=== PATIENT | male | born 1945 | race Caucasian/White ===

== ENCOUNTER 2020-02-13 14:26 | Inpatient (IN) ==
[2020-02-13] MEDS ORDERED: SODIUM CHLORIDE 0.9% 1000ML 1,000 ML IV ONE (14:45)
--- NOTE | 2020-02-13 14:52 | Emergency Department Note ---
Impression & Plan Hematuria, gross, Acute urinary retention, Anemia, Enlarged prostate, Abnormal abdominal CT scan ED Provider Note NAME: ALPA NGUYEN AGE: 74 SEX: M : 1945 ARRIVES VIA: Walk-In INFORMANT: [Patient][family] ED PROVIDER(S): [Victorino García MD] CHIEF COMPLAINT: Hematuria HISTORY OF PRESENT ILLNESS: The patient is a 74-year-old male who states that yesterday evening around 5 PM, he stopped being able to urinate. Patient states that he then felt the need to urinate in the cash teller this a.m. and could not. He went to an outside hospital, [facility]. The patient had a Jones catheter placed. The patient then had to go back to the same hospital a short time later as the catheter was full of blood. He was given a new Jones bag. Patient then went back a third time as again, the catheter was full of blood. He waited in the waiting room for 45 minutes and then left. He presents now to our ED. The patient has a known high prostate specific antigen. The value has been in the 40s. He is on Flomax and aspirin. The aspirin is preventative, he does not have any cardiac stents. The patient does not take any high end blood thinners. He has not suffered bladder trauma. He has no pain at the present. No flank pain in particular. There has been no documented fever but he felt he might of had a chill. No cough or congestion or chest pain. No known coronavirus exposures. The patient has been in this area from [place] for about 2 months. REVIEW OF SYSTEMS: See HPI for pertinent positives and negatives. A total of ten systems were reviewed and were otherwise negative. PMHx/PSHx: See Below SOCIAL HISTORY: See Below. PHYSICAL EXAM: GENERAL: Patient is in no acute distress. HEENT: No acute trauma, normocephalic atraumatic, mucous membranes moist, no nasal congestion, no scleral icterus. NECK: No stridor, no adenopathy, no meningismus, trachea is midline. LUNGS: Clear to auscultation bilaterally, no wheeze, no rhonchi, breath sounds equal. HEART: Without murmurs gallops or rubs, regular rate and rhythm. ABDOMEN: Soft, there is some distention in the area of the bladder, nontender abdomen, bowel sounds positive, no hernias, no peritonitis. EXTREMITIES: No cyanosis or edema, full range of motion of all the joints without pain or difficulty, no signs for acute trauma. NEUROLOGIC: Oriented x 3, no acute motor or sensory deficits, no focal weakness. SKIN: No rash, no jaundice, no diaphoresis. Groin: He is circumcised. There is a Jones catheter in place. The urine is tea colored and the Jones bag is quite full. DIFFERENTIAL DIAGNOSIS: Hematuria, bladder malignancy, prostate or renal malignancy, coagulopathy, anemia, UTI, renal stone, urethral trauma/tear, renal failure. EMERGENCY DEPARTMENT COURSE/PROCEDURES: MEDICAL DECISION MAKING: There is no leukocytosis. A mild anemia was noted. There was a normal platelet count. No coagulopathy. Potassium is slightly low but not critical, no kidney failure. No concerning liver enzyme elevation. Prostate specific antigen was quite high at 75. Urinalysis showed gross hematuria, no evidence for infection. Abdominal and pelvis CT showed a very large prostate. The bladder was irregular. There were abnormalities in the pelvis concerning for potential malignancy. There was no ureteral obstruction notified. The patient had his Jones catheter removed. A new Jones was placed. The bladder was irrigated. Despite the irrigation, the bleeding continued. This is the patient's fourth visit to a hospital in just 12 hours. He requires hospitalization and observation. He may require urologic intervention if his bleeding continues. I did consult urology. Urology recommended a hospital stay and a medical work-up. I spoke to the patient, I talked with case management. The on-call hospitalist was consulted. The patient was told to hold his aspirin for now. Past Med/Surg History Medical History BPH (benign prostatic hyperplasia) Elevated PSA Hx of colonic polyp Kidney stone Surgical History H/O lithotripsy H/O prostate biopsy Family History Father , age 67 Prostate cancer Lung cancer Colorectal cancer Brother Prostate cancer Social History Smoking Status: Former smoker Hx Alcohol Use: Yes Alcohol type: beer, wine and hard liquor Alcohol Intake Frequency: 2-4 x/Month Hx Substance Use: No Preferred Language: Mohawk Communication Ability: Effective Boom Stick Man Required: No Beliefs That Will Affect Care: None marital status: marital status details: 2nd marriage Current Living Situation: Spouse Current Living Situation Comment: lives in [place]; just recently moved from [place] current occupational status: retired 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 How many Children do You have: 5 How many Children do You have Comment: 1 biological child with current ; 1 biological child with first ; 3 step-children Feels Safe at Home: Yes Assistive Devices: Glasses Allergies Allergies Allergy/AdvReac Type Severity Reaction Status Date / Time No Known Allergies Allergy Unverified 02/13/20 17:46 Home Meds Home Medications Medication Instructions Recorded Confirmed finasteride 5 mg PO DAILY 02/13/20 02/13/20 multivitamin [Multiple Vitamin] 1 tab PO DAILY 02/13/20 02/13/20 omega-3 fatty acids [[place] 3] 1,000 mg PO DAILY 02/13/20 02/13/20 paroxetine HCl 20 mg PO DAILY 02/13/20 02/13/20 tamsulosin 0.4 mg PO DAILY 02/13/20 02/13/20 Results & Data (ED) Vital Signs Vital Signs - 24 hr 02/13/20 14:28 02/13/20 16:05 02/13/20 16:10 Temperature 37.4 C Temperature Source Oral Pulse Rate 92 H Pulse Rate [Finger] 69 Respiratory Rate 20 20 Respiratory Effort / Characteristics Non-Labored Non-Labored Spontaneous Respiratory Depth Normal Normal Respiratory Pattern Regular Regular Blood Pressure 148/75 H Blood Pressure [Right Arm] 146/78 H Blood Pressure Mean 99 Blood Pressure Mean [Right Arm] 100 Pulse Oximetry 97 94 Oxygen Delivery Method Room Air Room Air Room Air Sepsis Recent Fever Within 48 Hours No Sepsis New/Unexplained Change in Mental Status N/A Sepsis Action Taken by Nursing No Action Required 02/13/20 17:11 02/13/20 19:00 Temperature Temperature Source Pulse Rate Pulse Rate [Finger] 67 77 Respiratory Rate 18 20 Respiratory Effort / Characteristics Non-Labored Spontaneous Non-Labored Spontaneous Respiratory Depth Normal Normal Respiratory Pattern Blood Pressure Blood Pressure [Right Arm] 141/68 H 148/77 H Blood Pressure Mean Blood Pressure Mean [Right Arm] 92 100 Pulse Oximetry 96 95 Oxygen Delivery Method Room Air Room Air Sepsis Recent Fever Within 48 Hours Sepsis New/Unexplained Change in Mental Status Sepsis Action Taken by [facility] Medications Current Medication List: was personally reviewed by me Laboratory Data Attestation: I reviewed the patient's lab results. Result diagrams: 02/14/20 05:34 02/14/20 05:34 Lab Results 02/13/20 02/13/20 02/13/20 Range/Units 15:40 15:40 15:40 WBC 8.59 (4.8-10.8) K/uL RBC 4.26 L (4.7-6.1) M/uL Hgb 12.9 L (14.0-18.0) g/dL Hct 38.8 L (42-52) % MCV 91.1 (80-100) fL MCH 30.3 (25-34) pg MCHC 33.2 (32-36) g/dL RDW Std Deviation 44.6 (36.4-46.3) fL RDW Coeff of Robert 13.5 (11.5-14.5) % Plt Count 171 (130-400) K/uL MPV 11.0 H (7.4-10.4) fL Immature Gran % (Auto) 0.2 % Neut % (Auto) 82.3 % Lymph % (Auto) 12.5 % [place] % (Auto) 4.7 % Eos % (Auto) 0.2 % Baso % (Auto) 0.1 % Neut # (Auto) 7.07 H (1.4-6.5) K/uL Lymph # (Auto) 1.07 L (1.2-3.4) K/uL [place] # (Auto) 0.40 (0.11-0.59) K/uL Eos # (Auto) 0.02 (0-0.5) K/uL Baso # (Auto) 0.01 (0-0.2) K/uL Immature Gran # (Auto) 0.02 (0.00-0.02) K/uL PT 10.2 (9.0-12.0) Seconds INR 1.0 (0.9-1.1) APTT 27.6 (21.0-31.0) Seconds PTT Ratio 1.0 Sodium 140 (136-145) mmol/L Potassium 3.3 L (3.5-5.1) mmol/L Chloride 107 (98-107) mmol/L Carbon Dioxide 28 (21-32) mmol/L Anion Gap 5.0 (3-11) BUN 10 (7-18) mg/dl Creatinine 0.70 (0.6-1.4) mg/dl Est Cr Clr Drug Dosing 86.1 ml/min Est GFR ( Amer) 109.3 Est GFR (Non-Af Amer) 94.3 BUN/Creatinine Ratio 13.8 (10-20) Glucose 203 H (70-99) mg/dl Calcium 8.4 L (8.5-10.1) mg/dl Total Bilirubin 0.3 (0.2-1) mg/dl AST 17 (15-37) U/L ALT 22 (12-78) U/L Alkaline Phosphatase 95 (45-117) U/L Total Protein 6.8 (6.4-8.2) gm/dl Albumin 3.4 (3.4-5.0) gm/dl Globulin 3.4 (2.5-4.0) gm/dl Albumin/Globulin Ratio 1.0 (0.9-2) Prostate Specific Ag 75.900 H (0-4) ng/ml Urine Color Urine Appearance (Clear) Urine pH (4.5-7.5) Ur Specific [place] (1.000-1.030) Urine Protein (Negative) Urine Glucose (UA) (Negative) Urine Ketones (Negative) Urine Blood (Negative) Urine Nitrite (Negative) Urine Bilirubin (Negative) Urine Urobilinogen (Negative) Ur Leukocyte Esterase (Negative) Urine RBC (0-4) /hpf Urine WBC (0-5) /hpf Ur Epithelial Cells (0-5) /lpf Urine Bacteria (Negative) 02/13/20 Range/Units 16:00 WBC (4.8-10.8) K/uL RBC (4.7-6.1) M/uL Hgb (14.0-18.0) g/dL Hct (42-52) % MCV (80-100) fL MCH (25-34) pg MCHC (32-36) g/dL RDW Std Deviation (36.4-46.3) fL RDW Coeff of Robert (11.5-14.5) % Plt Count (130-400) K/uL MPV (7.4-10.4) fL Immature Gran % (Auto) % Neut % (Auto) % Lymph % (Auto) % [place] % (Auto) % Eos % (Auto) % Baso % (Auto) % Neut # (Auto) (1.4-6.5) K/uL Lymph # (Auto) (1.2-3.4) K/uL [place] # (Auto) (0.11-0.59) K/uL Eos # (Auto) (0-0.5) K/uL Baso # (Auto) (0-0.2) K/uL Immature Gran # (Auto) (0.00-0.02) K/uL PT (9.0-12.0) Seconds INR (0.9-1.1) APTT (21.0-31.0) Seconds PTT Ratio Sodium (136-145) mmol/L Potassium (3.5-5.1) mmol/L Chloride (98-107) mmol/L Carbon Dioxide (21-32) mmol/L Anion Gap (3-11) BUN (7-18) mg/dl Creatinine (0.6-1.4) mg/dl Est Cr Clr Drug Dosing ml/min Est GFR ( Amer) Est GFR (Non-Af Amer) BUN/Creatinine Ratio (10-20) Glucose (70-99) mg/dl Calcium (8.5-10.1) mg/dl Total Bilirubin (0.2-1) mg/dl AST (15-37) U/L ALT (12-78) U/L Alkaline Phosphatase (45-117) U/L Total Protein (6.4-8.2) gm/dl Albumin (3.4-5.0) gm/dl Globulin (2.5-4.0) gm/dl Albumin/Globulin Ratio (0.9-2) Prostate Specific Ag (0-4) ng/ml Urine Color Yellow Urine Appearance Slightly Cloudy (Clear) Urine pH 6.0 (4.5-7.5) Ur Specific [place] 1.025 (1.000-1.030) Urine Protein 3+ H (Negative) Urine Glucose (UA) Trace H (Negative) Urine Ketones Trace H (Negative) Urine Blood 3+ H (Negative) Urine Nitrite Negative (Negative) Urine Bilirubin Negative (Negative) Urine Urobilinogen Negative (Negative) Ur Leukocyte Esterase Negative (Negative) Urine RBC >30 H (0-4) /hpf Urine WBC 10-30 H (0-5) /hpf Ur Epithelial Cells 10-20 H (0-5) /lpf Urine Bacteria 1+ H (Negative) Administered Medications Finasteride (Finasteride 5 Mg Tab) 5 mg PO DAILY WISAM Stop: 03/15/20 08:59 Last Admin: 02/14/20 09:43 Dose: 5 mg Documented by: [id number] Ceftriaxone Sodium 2,000 mg/ (Dextrose) 70 mls @ 100 mls/hr IV DAILY WISAM; Protocol Stop: 02/24/20 17:59 Last Infusion: 02/14/20 21:22 Dose: 0 mls/hr Documented by: [id number] Admin: 02/14/20 19:55 Dose: 100 mls/hr Documented by: [id number] Multivitamins (Multivitamin Tab) 1 tab PO DAILY WISAM Stop: 03/15/20 08:59 Last Admin: 02/14/20 09:43 Dose: 1 tab Documented by: [id number] Paroxetine HCl (Paroxetine Hcl 20 Mg Tab) 20 mg PO DAILY WISAM Stop: 03/15/20 08:59 Last Admin: 02/14/20 09:43 Dose: 20 mg Documented by: [id number] Tamsulosin HCl (Tamsulosin Hcl 0.4 Mg Cap) 0.4 mg PO DAILY WISAM Stop: 03/15/20 08:59 Last Admin: 02/14/20 09:43 Dose: 0.4 mg Documented by: [id number] Discontinued Medications Sodium Chloride (Nss 1000ml) 1,000 mls @ 999 mls/hr IV .Q1H1M ONE Stop: 02/13/20 15:45 Last Infusion: 02/13/20 17:14 Dose: 0 mls/hr Documented by: [id number] Admin: 02/13/20 16:06 Dose: 999 mls/hr Documented by: [id number] Ceftriaxone Sodium (Rocephin) 2,000 mg in 70 mls @ 140 mls/hr IV NOW STA Stop: 02/13/20 20:07 Last Infusion: 02/13/20 22:15 Dose: 0 mls/hr Documented by: [id number] Admin: 02/13/20 20:36 Dose: 140 mls/hr Documented by: [id number] Potassium Chloride/Sodium Chloride (Normal Saline W/20 Meq Kcl) 20 meq in 1,000 mls @ 100 mls/hr IV .Q10H WISAM Stop: 03/14/20 21:29 Last Infusion: 02/14/20 13:44 Dose: 0 mls/hr Documented by: [id number] Admin: 02/14/20 07:26 Dose: 100 mls/hr Documented by: [id number] Infusion: 02/14/20 07:26 Dose: 100 mls/hr Documented by: [id number] Admin: 02/13/20 22:19 Dose: 100 mls/hr Documented by: [id number] Ioversol (Ioversol 100ml) 93 ml IV ONCE ONE Stop: 02/13/20 17:28 Last Admin: 02/13/20 17:28 Dose: 93 ml Documented by: [id number] Imaging Data Radiologist's Impression: ABDOMEN AND PELVIS CT WITH IV CONTRAST CT DOSE: 285.26 mGy.cm HISTORY: Acute hematuria poss mass, hematuria TECHNIQUE: Multiaxial CT images of the abdomen and pelvis were performed following the IV administration of 93 cc of Optiray 320, A dose lowering technique was utilized adhering to the principles of ALARA. COMPARISON STUDY: None. FINDINGS: Lung bases are generally clear. No pneumatosis or pneumoperitoneum. Mild cardiomegaly. The spleen and adrenal glands are unremarkable. There are a few scattered calcifications noted within the distal pancreatic body and tail which may reflect sequela of chronic pancreatitis. The gallbladder is either contracted or surgically absent. Calcifications measuring up to 11 mm are noted within the bayron hepatis, possibly within the cystic duct. No biliary ductal dilation. Patency of the hepatic and portal veins. Unremarkable liver. 3 mm nonobstructing calculus of the superior pole left kidney. Bilateral renal cysts measure up to 5 cm on the left. There is equivocal urothelial thickening of the right renal pelvis and proximal right ureter. Mild dilation of the mid and distal ureters without hydronephrosis. Marked irregular urinary bladder wall thickening and trabeculation. Nondependent air within the urinary bladder is also noted. Jones catheter appears appropriately positioned. Marked prostamegaly measures up to 9.6 cm transversely. Perivesicular stranding. Mild to moderate mixed plaque the abdominal aorta without aneurysm. There are several pathologic pelvic lymph nodes, largest of which is along the inferior lateral aspect of the right urinary bladder within the region of the proximal right inguinal canal measuring 2.2 x 1.6 cm. Pathologic perirectal and presacral lymph nodes measure up to 12 mm in short axis. There is no bowel obstruction. Colonic diverticulosis. Visualized urinary bladder is unremarkable. Soft tissues are within normal limits. There are no definite suspicious lytic or blastic osseous lesions identified. No acute fracture. IMPRESSION: 1. There is irregular urinary bladder wall thickening and trabeculation with marked prostamegaly. Perivesicular stranding with trace pelvic free fluid. Urinary bladder wall thickening may be secondary to chronic bladder outlet obstruction however could be correlated with cystoscopy to exclude malignancy. 2. Numerous pathologic pelvic lymph nodes seen within the perirectal and perivesicular distributions are suggestive of malignancy from unknown primary. Oncologic workup is needed. 3. Mild dilation of the bilateral ureters without hydronephrosis. Additionally, there is question urothelial thickening on the right. Correlate with urinalysis. 4. No bowel obstruction or bowel wall thickening. 5. Colonic diverticulosis. 6. No evidence of osseous metastatic disease. 7. Nonobstructing left nephrolithiasis. 8. Additional findings as above. Blood Pressure Blood Pressure Findings: Elevated blood pressure Blood Pressure Disposition: further management by hospitalist Discharge Plan Visit Data Chief Complaint: Bleeding Stated Complaint: BLEEDING ALOT IN CATHETER ED Provider: Victorino García Discharge Problem: Hematuria, gross, Acute urinary retention, Anemia, Enlarged prostate, Abnormal abdominal CT scan Patient Disposition: Admitted As Inpatient Condition: Good Discharge Instructions Interventions: ED Discharge Assessment Last Done: 02/13/20 20:58 Discharge Problem: Anemia Qualifiers: Anemia type: unspecified type Qualified Code(s): D64.9 - Anemia, unspecified
[2020-02-13 15:57] LABS: Basophils # (auto) 0.01 K/uL (0-0.2); Basophils % (auto) 0.1 %; Eosinophils # (auto) 0.02 K/uL (0-0.5); Eosinophils % (auto) 0.2 %; Hematocrit (blood only) 38.8 % (42-52); Hemoglobin 12.9 g/dL (14.0-18.0); Immature Granulocytes # (auto) 0.02 K/uL (0.00-0.02); Immature Granulocytes % (auto) 0.2 %; Lymphocytes # (auto) 1.07 K/uL (1.2-3.4); Lymphocytes % (auto) 12.5 %; Mean Corpuscular Hemoglobin 30.3 pg (25-34); Mean Corpuscular Hgb Conc 33.2 g/dL (32-36); Mean Corpuscular Volume 91.1 fL (80-100); Monocytes % (auto) 4.7 %; Neutrophils # (auto) 7.07 K/uL (1.4-6.5); Neutrophils % (auto) 82.3 %; Platelet Count 171 K/uL (130-400); RDW Coefficient of Variation 13.5 % (11.5-14.5); RDW Standard Deviation 44.6 fL (36.4-46.3); Red Blood Count 4.26 M/uL (4.7-6.1); White Blood Count 8.59 K/uL (4.8-10.8)
[2020-02-13 16:18] LABS: Partial Thromboplastin Time 27.6 Seconds (21.0-31.0); Prothrombin Time 10.2 Seconds (9.0-12.0)
[2020-02-13 16:26] LABS: Appearance Urine Slightly Cloudy (Clear); Bilirubin Urine Negative (Negative); Blood Urine 3+ (Negative); Glucose Urine UA Trace (Negative); Ketones Urine Trace (Negative); Leukocyte Esterase Urine Negative (Negative); Nitrite Urine Negative (Negative); Protein Urine 3+ (Negative); Specific Gravity Urine 1.025 (1.000-1.030); Urobilinogen Urine Negative (Negative)
[2020-02-13 16:27] LABS: Color Urine Yellow
[2020-02-13 16:28] LABS: Albumin Level 3.4 gm/dl (3.4-5.0); BUN Creatinine Ratio 13.8 (10-20); Calcium 8.4 mg/dl (8.5-10.1); Creatinine Clr Calc Pharmacy 86.1 ml/min; Est GFR (African American) 109.3; Est GFR (Non-African American) 94.3; Potassium 3.3 mmol/L (3.5-5.1)
[2020-02-13 16:30] LABS: Bacteria Urine 1+ (Negative); RBC Urine >30 /hpf (0-4)
[2020-02-13 16:31] LABS: Bilirubin,Total 0.3 mg/dl (0.2-1); Globulin 3.4 gm/dl (2.5-4.0); Total Protein 6.8 gm/dl (6.4-8.2)
[2020-02-13] MEDS ORDERED: IOVERSOL 100ml IV ONE (17:27)
--- NOTE | 2020-02-13 18:02 | CT Scan Report ---
ABDOMEN AND PELVIS CT WITH IV CONTRAST CT DOSE: 285.26 mGy.cm HISTORY: Acute hematuria poss mass, hematuria TECHNIQUE: Multiaxial CT images of the abdomen and pelvis were performed following the IV administrat ion of 93 cc of Optiray 320, A dose lowering technique was utilized adhering to the principles of AL DAMIAN. COMPARISON STUDY: None. FINDINGS: Lung bases are generally clear. No pneumatosis or pneumoperitoneum. Mild cardiomegaly. The spleen and adrenal glands are unremarkable. There are a few scattered calcifications noted within the distal pancreatic body and tail which may reflect sequela of chronic pancreatitis. The gallbladder i s either contracted or surgically absent. Calcifications measuring up to 11 mm are noted within the p ru hepatis, possibly within the cystic duct. No biliary ductal dilation. Patency of the hepatic and portal veins. Unremarkable liver. 3 mm nonobstructing calculus of the superior pole left kidney. Bilateral renal cysts measure up to 5 cm on the left. There is equivocal urothelial thickening of the right renal pelvis and proximal right ureter. Mild dilation of the mid and distal ureters without hydronephrosis. Marked irregular urinary bladder wall thickening and trabeculation. Nondependent air within the urinary bladder is also noted . Jones catheter appears appropriately positioned. Marked prostamegaly measures up to 9.6 cm transver sely. Perivesicular stranding. Mild to moderate mixed plaque the abdominal aorta without aneurysm. There are several pathologic pelv ic lymph nodes, largest of which is along the inferior lateral aspect of the right urinary bladder wi thin the region of the proximal right inguinal canal measuring 2.2 x 1.6 cm. Pathologic perirectal an d presacral lymph nodes measure up to 12 mm in short axis. There is no bowel obstruction. Colonic diverticulosis. Visualized urinary bladder is unremarkable. So ft tissues are within normal limits. There are no definite suspicious lytic or blastic osseous lesion s identified. No acute fracture. IMPRESSION: 1. There is irregular urinary bladder wall thickening and trabeculation with marked prostamegaly. Per ivesicular stranding with trace pelvic free fluid. Urinary bladder wall thickening may be secondary t o chronic bladder outlet obstruction however could be correlated with cystoscopy to exclude malignanc y. 2. Numerous pathologic pelvic lymph nodes seen within the perirectal and perivesicular distributions are suggestive of malignancy from unknown primary. Oncologic workup is needed. 3. Mild dilation of the bilateral ureters without hydronephrosis. Additionally, there is question uro thelial thickening on the right. Correlate with urinalysis. 4. No bowel obstruction or bowel wall thickening. 5. Colonic diverticulosis. 6. No evidence of osseous metastatic disease. 7. Nonobstructing left nephrolithiasis. 8. Additional findings as above. ACT 112: Negative or not required by law. The above report was generated using voice recognition software. It may contain grammatical, syntax o r spelling errors. Electronically signed by: Chase Gonzalez M.D. 02/13/2020 6:01 PM
[2020-02-13 19:14] LABS: Prostate Specific Antigen 75.9 ng/ml (0-4)
[2020-02-13] MEDS ORDERED: cefTRIAXone SODIUM 2,000 MG/70 ML BAG IV STA (19:38)
--- NOTE | 2020-02-13 19:42 | Urology Consultation ---
Date of Consultation February 13, 2020 Assessment & Plan (1) Hematuria, gross: (2) Acute urinary retention: Patient initially presented in outlying facility with large volume retention. Had a catheter placed and subsequently developed gross hematuria with clot retention and multiple issues. Is currently resting more comfortably. Is on tamsulosin in the past. Has a PSA which was checked today found to be 75. Was in the 40 range in the past per patient. We will need to get full records of patient's urologic history. Patient has concerning findings on imaging including pathologically enlarged lymph nodes with considerable thickening of bladder and severe bilateral hydronephrosis. Majority of issues may be related to large volume retention however concern for possible malignancy causing obstruction versus other issues. According to records patient is on finasteride and PSA will be corrected to over 150 Will need decompression with Jones catheter for approximately 10 to 14 days. Will likely need repeat biopsy of prostate if unable to confirm prostate cancer on previous biopsy. Will also need to have scope to rule out mass of bladder/bladder cancer. Would need to consider TURP at some point to assess tissue and obstruction. Will likely need to consider intervention at this point. May need biopsies of lymph nodes depending on results. May need further work- up to better assess and consider other malignant work-up. Continue plans with supportive care with hydration and monitoring. Irrigate as needed gently. We will maintain catheter for now. Will likely need cystoscopy at some point to rule out bladder tumor as well. Will allow time for decompression and resolution of hematuria. History of Present Illness History of Present Illness hematuria after large volume retention. Patient has been an outlying facility x3 over the last 24 hours with issues related to gross. Patient presented to this ER where he was admitted for mild anemia/blood loss/JED/ill feelings. Consult for urinary issues with hematuria. Patient has mild to moderate discomfort in pelvis and groin going to back and side in waves. Is dealing with acute illness. Has been deconditioned from this. Has decreased mobility significantly with acute issues. Denies significant previous episodes of hematuria. Does have a known history of prostate enlargement. Possible history of prostate cancer with PSA >40 but has been negative on multiple biopsies. New catheter was placed in the ER with continued gross hematuria. Patient has considerable findings of likely lymph node enlargements pathologically around bladder breanna-rectum and inguinal chain. Patient has an extremely large prostate. Has considerable bladder wall thickening and bilateral hydronephrosis likely from long-term retention. Has had some minor urinary issues in the past. Patient states he was told he had a large prostate in the past. Also was told he had intermittent issues related to his prostate which may have been a prostate cancer. No severe nausea or vomiting. Currently no fevers. No significant other family history of malignancy. Allergies Allergy/AdvReac Type Severity Reaction Status Date / Time No Known Allergies Allergy Unverified 02/13/20 17:46 Home Medications Home Medications Medication Instructions Recorded Confirmed Type finasteride 5 mg PO DAILY 02/13/20 02/13/20 History multivitamin [Multiple Vitamin] 1 tab PO DAILY 02/13/20 02/13/20 History omega-3 fatty acids [[place] 3] 1,000 mg PO DAILY 02/13/20 02/13/20 History paroxetine HCl 20 mg PO DAILY 02/13/20 02/13/20 History tamsulosin 0.4 mg PO DAILY 02/13/20 02/13/20 History Patient History Medical History (Updated 02/13/20 @ 20:52 by Serafin Pritchett) BPH (benign prostatic hyperplasia) Elevated PSA Hx of colonic polyp Kidney stone Surgical History (Updated 02/13/20 @ 20:46 by Serafin Pritchett) H/O lithotripsy H/O prostate biopsy Family History Father , age 67 Prostate cancer Lung cancer Colorectal cancer Brother Prostate cancer Social History (Updated 02/13/20 @ 20:48 by Serafin Pritchett) Smoking Status: Never smoker Hx Alcohol Use: Yes Alcohol Intake Frequency: 2-4 x/Month marital status: marital status details: 2nd marriage Current Living Situation: Spouse Current Living Situation Comment: lives in [place]; just recently moved from [place] current occupational status: retired 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 Patient is well nourished and well kept. HEENT: Normocephalic Atraumatic. Inspection normal. Cranial Nerves 2-12 Grossly intact. Nares are clear. Neck is supple. Normal inspection of face. Normal inspection of neck. Neurologic: No deficits on inspection. Baseline for motor function and sensory. Psychologic: Normal affect. Respiratory: Nonlabored. No use of accessory muscles. No tachypnea or dyspnea. Cardiovascular: No tachycardia Skin: [place] and Dry. No rashes or visible lesions. Extremities: Moving without issues. No motor deficits on inspection Lymphatics: No edema Abdomen: Soft Non-distended. No acites. No rebound or guarding. Results & Data ([facility]) Vital Signs (Past 12 Hours) Vital Signs Temp Pulse Pulse Resp BP BP Pulse Ox 02/13/20 19:00 77 20 148/77 H 95 02/13/20 17:11 67 18 141/68 H 96 02/13/20 16:10 69 20 146/78 H 94 02/13/20 14:28 37.4 C 92 H 20 148/75 H 97 PG Care Time/CCT Total # of Minutes Spent Total Time Spent with Patient: Total time spent is greater than 50% in coordination of care (as documented) at patient's floor/unit and/or counseling patient: Coding Level of Care Code 57519 Inpt Consult Level 5 Diagnoses Hematuria, gross R31.0 Acute urinary retention R33.8
--- NOTE | 2020-02-13 19:45 | History & Physical Report ---
Date of Service February 13, 2020 Assessment & Plan (1) Hematuria, gross: This began after arellano catheter insertion at outside hospital early this am. Catheter was placed appropriately due to severe urinary retention (difficulty voiding for 12+ hours and copious amount of urine in bladder at time of insertion). Certainly arellano trauma can cause the hematuria but the bleeding is mod-severe and not clearing with time. UTI/acute prostatitis, severe BPH, and bladder or prostate cancer can all contribute to bleeding. [facility] [place] been [place] for assistance. Leave arellano with manual irrigation prn. If clots or retention then would need 3-way with CBI but defer that type of decision to urology. Check PSA. Treat any underlying UTI/prostatitis with rocephin 2gm daily. Urine culture sent. Cont flomax. Keep NPO after MN tonight in the event he needs cystoscopy. CT abd/pelvis reviewed and findings are quite worrisome for malignancy. Hold aspirin. Hold fish oil. (2) Acute urinary retention: 2nd to massive BPH. Cannot rule out prostate ca. Cannot rule out acute prostatitis/UTI. s/p arellano insertion early this am. IV rocephin. Cont flomax, finasteride. Urolong consult requested. BMP in am. (3) BPH (benign prostatic hyperplasia): Chronic, severe. PSA markedly elevated. On dual therapy at home - finasteride, flomax - continue both. s/p arellano insertion this am. Urology consultation. Treat for possible prostatitis. (4) Elevated PSA: Chronic, but much worse today. Will likely need prostate biopsy - last biopsy was ~5 years ago. Defer management to urology. (5) H/O prostate biopsy: Multiple, last being 2014. see above. (6) Hypokalemia: add KCL to IV fluids. repeat BMP am. Check mag in am. (7) Weight loss: in light of CT abd/pelvis findings I am concerned for malignancy. see above. (8) Hyperglycemia: Random glucose >200. Check HbA1C in am - r/o DM. (9) Mood disorder: Continue paxil. (10) DVT prophylaxis: Chemical means contraindicated in light of hematuria. SCDs for now. History of Present Illness Chief Complaint: gross hematuria Primary Care Provider: NO PCP 74yo male with history of elevated PSA and BPH for several decades presents with gross hematuria. Patient reports that mid-afternoon on 02/12/20 he started to have difficulty voiding. He was unsuccessful at passing any urine for the remainder of Thursday. Early Thursday am, about 5-6am, he became distended and very uncomfortable due to the inability to void. He and his went to [facility] in [place]. He had a arellano placed and immediately 1000+cc of clear urine exuded. Patient recalls that the catheter insertion was uncomfortable but it only took [address] While preparing for d/c home the urine became grossly bloody. The patient was discharged but returned to [facility] a few hours later for a recheck of the hematuria. He was given reassurance and d/c home. Upon return to his house the urine worsened further and they went a 3rd time to the hospital in [place]. Because of a long wait they ultimately came to [facility] for evaluation. Patient states he was diagnosed with BPH in the . He takes dual-BPH medications. He has had numerous prostate biopsies dating back to the late . Most recent biopsy was in 2014. All biopsies have been negative for prostate cancer. He recalls that his most recent PSAs have ranged from 20s to 40s. Patient denies any dysuria or prior hematuria. He does have nocturia and poor stream on chronic basis. mentions that he has lost about 7 pounds of weight over the last few months. She also reports that they moved from [place] to [place] within the last 6-8 weeks. Allergies Allergy/AdvReac Type Severity Reaction Status Date / Time No Known Allergies Allergy Unverified 02/13/20 17:46 Home Medications Home Medications Medication Instructions Recorded Confirmed Type finasteride 5 mg PO DAILY 02/13/20 02/13/20 History multivitamin [Multiple Vitamin] 1 tab PO DAILY 02/13/20 02/13/20 History omega-3 fatty acids [[place] 3] 1,000 mg PO DAILY 02/13/20 02/13/20 History paroxetine HCl 20 mg PO DAILY 02/13/20 02/13/20 History tamsulosin 0.4 mg PO DAILY 02/13/20 02/13/20 History Past Med/Surg History Medical History (Updated 02/13/20 @ 20:59 by Serafin Pritchett) BPH (benign prostatic hyperplasia) Elevated PSA Hx of colonic polyp Kidney stone Surgical History (Updated 02/13/20 @ 20:46 by Serafin Pritchett) H/O lithotripsy H/O prostate biopsy Family History Father , age 67 Prostate cancer Lung cancer Colorectal cancer Brother Prostate cancer Social History (Updated 02/13/20 @ 20:48 by Serafin Pritchett) Smoking Status: Never smoker Hx Alcohol Use: Yes Alcohol Intake Frequency: 2-4 x/Month marital status: marital status details: 2nd marriage Current Living Situation: Spouse Current Living Situation Comment: lives in [place]; just recently moved from [place] current occupational status: retired 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 How many Children do You have: 5 How many Children do You have Comment: 1 biological child with current ; 1 biological child with first ; 3 step-children Feels Safe at Home: Yes Review of Systems Constitutional: + weight loss; no fever, no chills and no anorexia Eyes: no worsening vision Ear, Nose, Mouth, Throat: no sore throat and no dysphagia Respiratory: no cough and no dyspnea Cardiovascular: no chest pain Gastrointestinal: + bloating; no abdominal pain, no nausea, no vomiting, no blood in stools and no melena Genitourinary: + difficulty urinating, + nocturia and + hematuria; no dysuria Musculoskeletal: no joint pain Integumentary: no rash Neurologic: no localized weakness and no loss of sensation Psychiatric: + anxiety (takes paxil ) Endocrine: denies diabetes Hematologic / Lymphatic: no easy bleeding and no easy bruising Physical Exam Constitutional: no acute distress and no altered mental status Eyes: PERRL ENMT: external ear and nose normal, oropharynx normal Neck: trachea midline, no thyromegaly Respiratory: normal respiratory effort, lungs clear to auscultation Cardiovascular: Rate/Rhythm: regular rate and regular rhythm Heart Sounds: normal S1 and normal S2; no murmur Vessels: posterior tibial pulses present and dorsalis pedis pulses present; no JVD Extremities: no edema Gastrointestinal (Abdomen): Inspection/Auscultation: + abdomen distended and normal bowel sounds Percussion/Palpation: + abdomen tender (suprapubic region ); no hepatosplenomegaly AFTAB deferred Musculoskeletal: no cyanosis or clubbing, extremities motor strength 5/5 Skin: no rashes, warm and dry Neurologic: deep tendon reflexes 2+ bilaterally and moves all extremities Psychiatric: A+Ox3, euthymic affect Lymphatic: no cervical lymphadenopathy Results & Data Results & Data ([facility]) Vital Signs (Past 12 Hours) Vital Signs Temp Pulse Pulse Resp BP BP Pulse Ox 02/13/20 19:00 77 20 148/77 H 95 02/13/20 17:11 67 18 141/68 H 96 02/13/20 16:10 69 20 146/78 H 94 02/13/20 14:28 37.4 C 92 H 20 148/75 H 97 Laboratory Results Laboratory Results - last 24 hr 02/13/20 02/13/20 02/13/20 15:40 15:40 15:40 WBC 8.59 RBC 4.26 L Hgb 12.9 L Hct 38.8 L MCV 91.1 MCH 30.3 MCHC 33.2 RDW Std Deviation 44.6 RDW Coeff of Robert 13.5 Plt Count 171 MPV 11.0 H Immature Gran % (Auto) 0.2 Neut % (Auto) 82.3 Lymph % (Auto) 12.5 [place] % (Auto) 4.7 Eos % (Auto) 0.2 Baso % (Auto) 0.1 Neut # (Auto) 7.07 H Lymph # (Auto) 1.[address] [place] # (Auto) 0.40 Eos # (Auto) 0.02 Baso # (Auto) 0.01 Immature Gran # (Auto) 0.02 PT 10.2 INR 1.0 APTT 27.6 PTT Ratio 1.0 Sodium 140 Potassium 3.3 L Chloride 107 Carbon Dioxide 28 Anion Gap 5.0 BUN 10 Creatinine 0.70 Est Cr Clr Drug Dosing 86.1 Est GFR ( Amer) 109.3 Est GFR (Non-Af Amer) 94.3 BUN/Creatinine Ratio 13.8 Glucose 203 H Calcium 8.4 L Total Bilirubin 0.3 AST 17 ALT 22 Alkaline Phosphatase 95 Total Protein 6.8 Albumin 3.4 Globulin 3.4 Albumin/Globulin Ratio 1.0 Prostate Specific Ag 75.900 H Urine Color Urine Appearance Urine pH Ur Specific [place] Urine Protein Urine Glucose (UA) Urine Ketones Urine Blood Urine Nitrite Urine Bilirubin Urine Urobilinogen Ur Leukocyte Esterase Urine RBC Urine WBC Ur Epithelial Cells Urine Bacteria 02/13/20 16:00 WBC RBC Hgb Hct MCV MCH MCHC RDW Std Deviation RDW Coeff of Robert Plt Count MPV Immature Gran % (Auto) Neut % (Auto) Lymph % (Auto) [place] % (Auto) Eos % (Auto) Baso % (Auto) Neut # (Auto) Lymph # (Auto) [place] # (Auto) Eos # (Auto) Baso # (Auto) Immature Gran # (Auto) PT INR APTT PTT Ratio Sodium Potassium Chloride Carbon Dioxide Anion Gap BUN Creatinine Est Cr Clr Drug Dosing Est GFR ( Amer) Est GFR (Non-Af Amer) BUN/Creatinine Ratio Glucose Calcium Total Bilirubin AST ALT Alkaline Phosphatase Total Protein Albumin Globulin Albumin/Globulin Ratio Prostate Specific Ag Urine Color Yellow Urine Appearance Slightly Cloudy Urine pH 6.0 Ur Specific [place] 1.025 Urine Protein 3+ H Urine Glucose (UA) Trace H Urine Ketones Trace H Urine Blood 3+ H Urine Nitrite Negative Urine Bilirubin Negative Urine Urobilinogen Negative Ur Leukocyte Esterase Negative Urine RBC >30 H Urine WBC 10-30 H Ur Epithelial Cells 10-20 H Urine Bacteria 1+ H Diagnostic Findings CT abd/pelvis: IMPRESSION: 1. There is irregular urinary bladder wall thickening and trabeculation with marked prostamegaly. Perivesicular stranding with trace pelvic free fluid. Urinary bladder wall thickening may be secondary to chronic bladder outlet obstruction however could be correlated with cystoscopy to exclude malignancy. 2. Numerous pathologic pelvic lymph nodes seen within the perirectal and perivesicular distributions are suggestive of malignancy from unknown primary. Oncologic workup is needed. 3. Mild dilation of the bilateral ureters without hydronephrosis. Additionally, there is question urothelial thickening on the right. Correlate with urinalysis. 4. No bowel obstruction or bowel wall thickening. 5. Colonic diverticulosis. 6. No evidence of osseous metastatic disease. 7. Nonobstructing left nephrolithiasis. Code Status & VTE Plan Code Status full code VTE Prophylaxis Plan VTE Prophylaxis will be ordered: Yes PG Care Time/CCT Total # of Minutes Spent Total Time Spent with Patient: Total time spent is greater than 50% in coordination of care (as documented) at patient's floor/unit and/or counseling patient: Coding Level of Care Code 07357 Initial Inpt Care Lvl 3 Diagnoses Hematuria, gross R31.0 Acute urinary retention R33.8 BPH (benign prostatic hyperplasia) N40.1; R33.8 Lower urinary tract symptom presence: symptoms present Lower urinary tract symptom detail: urinary retention Elevated PSA R97.20 H/O prostate biopsy Z98.890 Hypokalemia E87.6 Weight loss R63.4 Hyperglycemia R73.9 Mood disorder F39 DVT prophylaxis Z29.9 (1) BPH (benign prostatic hyperplasia) Lower urinary tract symptom presence: symptoms present Lower urinary tract symptom detail: urinary retention Qualified Code(s): N40.1 - Benign prostatic hyperplasia with lower urinary tract symptoms; R33.8 - Other retention of urine
[2020-02-13] MEDS ORDERED: ONDANSETRON INJ 2 MG/ML 2 ML VIAL IV PRN (21:20)
[2020-02-13] MEDS ORDERED: ACETAMINOPHEN 325 MG TAB PO PRN (21:20)
[2020-02-13] MEDS: NSS + 20MEQ KCL 20 MEQ/1,000 ML BAG IV SCH (22:19)
[2020-02-14 05:51] LABS: Basophils # (auto) 0.02 K/uL (0-0.2); Basophils % (auto) 0.3 %; Eosinophils # (auto) 0.14 K/uL (0-0.5); Hematocrit (blood only) 40.9 % (42-52); Hemoglobin 12.8 g/dL (14.0-18.0); Immature Granulocytes # (auto) 0.01 K/uL (0.00-0.02); Immature Granulocytes % (auto) 0.1 %; Lymphocytes # (auto) 1.27 K/uL (1.2-3.4); Lymphocytes % (auto) 18.2 %; Mean Corpuscular Hemoglobin 28.8 pg (25-34); Mean Corpuscular Hgb Conc 31.3 g/dL (32-36); Mean Corpuscular Volume 92.1 fL (80-100); Mean Platelet Volume 11.2 fL (7.4-10.4); Monocytes # (auto) 0.56 K/uL (0.11-0.59); Neutrophils # (auto) 4.99 K/uL (1.4-6.5); Neutrophils % (auto) 71.4 %; Platelet Count 158 K/uL (130-400); RDW Coefficient of Variation 13.6 % (11.5-14.5); RDW Standard Deviation 45.9 fL (36.4-46.3); Red Blood Count 4.44 M/uL (4.7-6.1); White Blood Count 6.99 K/uL (4.8-10.8)
[2020-02-14 06:21] LABS: Creatinine Clr Calc Pharmacy 97.2 ml/min; Est GFR (African American) 114.9; Est GFR (Non-African American) 99.1; Magnesium 2.1 mg/dl (1.8-2.4); Potassium 3.5 mmol/L (3.5-5.1)
[2020-02-14 06:45] LABS: Estimated Average Glucose 111 mg/dl; Hemoglobin A1C 5.5 % (4.5-5.6)
[2020-02-14] MEDS: NSS + 20MEQ KCL 20 MEQ/1,000 ML BAG IV SCH (07:26)
--- NOTE | 2020-02-14 09:10 | Urology Progress Note ---
Date of Service February 14, 2020 Assessment & Plan (1) Enlarged prostate: (2) Hematuria, gross: (3) Elevated PSA: continue observation and irrigate prn get outpatient records Admission and Anticipated Discharge Date Admission Date: February 13, 2020 Subjective Pt resting comfortably. Urine clearing . Wine colored in bag but clear in tubing w/o clot . Hct appears stable . Pt will need outpatient cysto nd evaluation of previous records . Prostate massively enlarged on ct. Observe today . Possible disccharge on antibiotic pending culture if urine clears . HCT stable Physical Exam Genitourinary: urine clearing in tube Results & Data ([facility]) Vital Signs (Past 12 Hours) Vital Signs Temp Pulse Resp BP Pulse Ox 02/14/20 07:41 36.6 C 66 18 141/69 H 97 02/13/20 23:17 37.0 C 78 14 126/62 97 02/13/20 21:20 37.5 C 69 16 147/71 H 96 Laboratory Results hct 40 today PG Care Time/CCT Total # of Minutes Spent Total Time Spent with Patient: Total time spent is greater than 50% in coordination of care (as documented) at patient's floor/unit and/or counseling patient: Coding Level of Care Code 48004 Subseq Hosp Care Lvl 1 Diagnoses Enlarged prostate N40.0 Hematuria, gross R31.0 Elevated PSA R97.20
[2020-02-14] MEDS: TAMSULOSIN HCL 0.4 MG CAP PO SCH (09:43)
[2020-02-14] MEDS: PARoxetine HCL 20 MG TAB PO SCH (09:43)
[2020-02-14] MEDS: MULTIVITAMIN TAB PO SCH (09:43)
[2020-02-14] MEDS: FINASTERIDE 5 MG TAB PO SCH (09:43)
--- NOTE | 2020-02-14 10:34 | Hospitalist Progress Note ---
Date of Service February 14, 2020 Assessment & Plan (1) Hematuria, gross: * Began after Arellano catheter insertion at [place] 02/12 for urinary retention which which was appropriate as he had over 1000cc drained at time of insertion. UTI/acute prostatitis, severe BPH, and bladder or prostate cancer can all contribute to bleeding. * Still with bloody drainage and would expect clearing up by now * CT A/P with irregular urinary bladder wall thickening and trabeculation with marked prostatomegaly. Perivesicular stranding with trace pelvic free fluid. Urinary bladder wall thickening may be secondary to chronic bladder outlet obstruction however could be correlated with cystoscopy to exclude malignancy. Numerous pathologic pelvic lymph nodes seen within the perirectal and perivesicular distributions are suggestive of malignancy from unknown primary. Oncologic workup is needed. Mild dilation of the bilateral ureters without hydronephrosis. Additionally, there is question urothelial thickening on the right. Nonobstructing left nephrolithiasis. * Urology on consult -- appreciate assistance * Placed HIM consult for records from Dr. Cummings from [facility] for most recent notes/MRI findings -- follow * Manual irrigation of Arellano. No 3-way for CBI at this time * PSA elevated at 75.9, however patient on finasteride and per Urology, corrected value closer to 150. Given weight loss and reported concerning findings on previous MRI, concerns for malignancy * Given Rocephin 2gm IV --> Urine culture negative but will continue for prostatitis * Stop IVF as taking adequate PO * Continue Flomax * Ordered diet as no intervention at this time * H/h 12.8/40.9 from 12.9/38.8 on admission. Continue to hold Hold ASA, fish oil. * Continue to monitor (2) Acute urinary retention: * 2nd to massive BPH. * Cannot rule out prostate ca. * Cannot rule out acute prostatitis/UTI. * Continue Arellano, IV Rocephin, Flomax, Finasteride * Urology consulted as above * BMP with stable Cr (3) BPH (benign prostatic hyperplasia): * Chronic, severe. * PSA markedly elevated, 75.9 (previous values 20-40 per patient report), with correction to 150 per Urology as he is on dual therapy with finasteride/flomax * Continue finasteride, flomax * Treat for possible prostatitis as above (4) Elevated PSA: * Chronic, but much worse as above * Will likely need prostate biopsy - last biopsy was ~5 years ago. * Defer management to urology. (5) H/O prostate biopsy: * Multiple, last being 2014. * see above -- requesting records (6) Hypokalemia: * K 3.3 on admission -- added to IVF. Mag 2.1 * Resolved -- K 3.5 * Monitor on AM BMP (7) Weight loss: * in light of CT abd/pelvis findings, raised concerns for malignancy (8) Hyperglycemia: * Random glucose >200 and A1c was added to AM labs * A1c 5.5 and glucose on BMP 107 (9) Mood disorder: * Stable * Continue paxil 20mg daily (10) DVT prophylaxis: * Chemical means contraindicated in light of hematuria * SCDs for now Admission and Anticipated Discharge Date Admission Date: February 13, 2020 Supervising Physician Co-Signing Physician Notes PA Supervision Note: I did not personally see or examine the patient today, but I verified all mustafa points of GREG Navarro's assessment and plan with the following exceptions/additions: None Subjective Patient evaluated this afternoon. Had been seen by Urology this morning without plans for surgical intervention at this time. Per patient, PSA had been running stead 20-40 previously and on finasteride, currently elevated >75 and to be corrected per Urology for value of 150. Per patient and , patient has had multiple biopsies in the past which were negative but notes that he had an MRI several years ago with concerning areas that they were watching and stated "some kind of score 2/4 or something like that". Was able to obtain information for urologist seen in [place] as they have moved to [place] in the past 2 months and will request most recent records for further evaluation/repeat imaging at discretion of urology. 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 States initially insertion at [place] with clear urine and did not develop hematuria until later and had several trips to ER. Discussed urine came back negative for infection and will not order any further abx at this time. Making adequate urine. Hungry, as he had been NPO for possible intervention and tray arrived as I was leaving the room/ Denies fever, chills, chest pain, shortness of breath, abdominal pain, nausea or vomiting at this time . All questions/concerns addressed at this time. Review of Systems Constitutional: + weight loss (7lb, unintentional); no fever, no chills and no anorexia Gastrointestinal: + bloating; no abdominal pain, no nausea, no vomiting, no blood in stools and no melena Genitourinary: + difficulty urinating, + nocturia and + hematuria; no dysuria Physical Exam Constitutional: well developed; no acute distress and no altered mental status Eyes: + anicteric sclerae and PERRL ENMT: external ear and nose normal, oropharynx normal Neck: trachea midline, no thyromegaly Respiratory: normal respiratory effort, lungs clear to auscultation Cardiovascular: Rate/Rhythm: regular rate and regular rhythm Heart Sounds: normal S1 and normal S2; no murmur Vessels: no JVD Extremities: no edema Gastrointestinal (Abdomen): Inspection/Auscultation: + abdomen distended (less) and normal bowel sounds Percussion/Palpation: abdomen nontender, no guarding, abdomen not rigid and no hepatosplenomegaly AFTAB deferred Musculoskeletal: no cyanosis or clubbing, extremities motor strength 5/5 Skin: no rashes, warm and dry Neurologic: deep tendon reflexes 2+ bilaterally and moves all extremities Psychiatric: A+Ox3, euthymic affect Genitourinary: arellano with blood clots present, darkened pink/light red urine draining Lymphatic: no cervical lymphadenopathy Results & Data Results & Data ([facility]) Vital Signs (Past 12 Hours) Vital Signs Temp Pulse Resp BP Pulse Ox 02/14/20 07:41 36.6 C 66 18 141/69 H 97 02/13/20 23:17 37.0 C 78 14 126/62 97 Laboratory Results 02/14/20 02/14/20 02/14/20 Range/Units 05:34 05:34 05:34 WBC 6.99 (4.8-10.8) K/uL RBC 4.44 L (4.7-6.1) M/uL Hgb 12.8 L (14.0-18.0) g/dL Hct 40.9 L (42-52) % MCV 92.1 (80-100) fL MCH 28.8 (25-34) pg MCHC 31.3 L (32-36) g/dL RDW Std Deviation 45.9 (36.4-46.3) fL RDW Coeff of Robert 13.6 (11.5-14.5) % Plt Count 158 (130-400) K/uL MPV 11.2 H (7.4-10.4) fL Immature Gran % (Auto) 0.1 % Neut % (Auto) 71.4 % Lymph % (Auto) 18.2 % Carlisle % (Auto) 8.0 % Eos % (Auto) 2.0 % Baso % (Auto) 0.3 % Neut # (Auto) 4.99 (1.4-6.5) K/uL Lymph # (Auto) 1.27 (1.2-3.4) K/uL Carlisle # (Auto) 0.56 (0.11-0.59) K/uL Eos # (Auto) 0.14 (0-0.5) K/uL Baso # (Auto) 0.02 (0-0.2) K/uL Immature Gran # (Auto) 0.01 (0.00-0.02) K/uL Sodium 146 H (136-145) mmol/L Potassium 3.5 (3.5-5.1) mmol/L Chloride 113 H (98-107) mmol/L Carbon Dioxide 29 (21-32) mmol/L Anion Gap 4.0 (3-11) BUN 7 (7-18) mg/dl Creatinine 0.62 (0.6-1.4) mg/dl Est Cr Clr Drug Dosing 97.2 ml/min Est GFR ( Amer) 114.9 Est GFR (Non-Af Amer) 99.1 BUN/Creatinine Ratio 11.0 (10-20) Glucose 107 H (70-99) mg/dl Estimat Average Glucose 111 mg/dl Hemoglobin A1c 5.5 (4.5-5.6) % Calcium 8.0 L (8.5-10.1) mg/dl Magnesium 2.1 (1.8-2.4) mg/dl Prostate Specific Ag (0-4) ng/ml 02/13/20 Range/Units 15:40 WBC (4.8-10.8) K/uL RBC (4.7-6.1) M/uL Hgb (14.0-18.0) g/dL Hct (42-52) % MCV (80-100) fL MCH (25-34) pg MCHC (32-36) g/dL RDW Std Deviation (36.4-46.3) fL RDW Coeff of Robert (11.5-14.5) % Plt Count (130-400) K/uL MPV (7.4-10.4) fL Immature Gran % (Auto) % Neut % (Auto) % Lymph % (Auto) % Carlisle % (Auto) % Eos % (Auto) % Baso % (Auto) % Neut # (Auto) (1.4-6.5) K/uL Lymph # (Auto) (1.2-3.4) K/uL Carlisle # (Auto) (0.11-0.59) K/uL Eos # (Auto) (0-0.5) K/uL Baso # (Auto) (0-0.2) K/uL Immature Gran # (Auto) (0.00-0.02) K/uL Sodium (136-145) mmol/L Potassium (3.5-5.1) mmol/L Chloride (98-107) mmol/L Carbon Dioxide (21-32) mmol/L Anion Gap (3-11) BUN (7-18) mg/dl Creatinine (0.6-1.4) mg/dl Est Cr Clr Drug Dosing ml/min Est GFR ( Amer) Est GFR (Non-Af Amer) BUN/Creatinine Ratio (10-20) Glucose (70-99) mg/dl Estimat Average Glucose mg/dl Hemoglobin A1c (4.5-5.6) % Calcium (8.5-10.1) mg/dl Magnesium (1.8-2.4) mg/dl Prostate Specific Ag 75.900 H (0-4) ng/ml Diagnostic Findings CTA/P IMPRESSION: 1. There is irregular urinary bladder wall thickening and trabeculation with marked prostamegaly. Perivesicular stranding with trace pelvic free fluid. Urinary bladder wall thickening may be secondary to chronic bladder outlet o bstruction however could be correlated with cystoscopy to exclude malignancy. 2. Numerous pathologic pelvic lymph nodes seen within the perirectal and perivesicular distributions are suggestive of malignancy from unknown primary. Oncologic workup is needed. 3. Mild dilation of the bilateral ureters without hydronephrosis. Additionally, there is question urothelial thickening on the right. Correlate with urinalysis. 4. No bowel obstruction or bowel wall thickening. 5. Colonic diverticulosis. 6. No evidence of osseous metastatic disease. 7. Nonobstructing left nephrolithiasis. 8. Additional findings as above. PG Care Time/CCT Total # of Minutes Spent Total Time Spent with Patient: Total time spent is greater than 50% in coordination of care (as documented) at patient's floor/unit and/or counseling patient: Coding Level of Care Code 95227 Subseq Hosp Care Lvl 2 Diagnoses Hematuria, gross R31.0 Acute urinary retention R33.8 BPH (benign prostatic hyperplasia) N40.1; R33.8 Lower urinary tract symptom detail: urinary retention Lower urinary tract symptom presence: symptoms present Elevated PSA R97.20 H/O prostate biopsy Z98.890 Hypokalemia E87.6 Weight loss R63.4 Hyperglycemia R73.9 Mood disorder F39 DVT prophylaxis Z29.9 (1) BPH (benign prostatic hyperplasia) Lower urinary tract symptom detail: urinary retention Lower urinary tract symptom presence: symptoms present Qualified Code(s): N40.1 - Benign prostatic hyperplasia with lower urinary tract symptoms; R33.8 - Other retention of urine
[2020-02-14] MEDS: cefTRIAXone SODIUM 2,000 MG in DEXTROSE 5% 50 ML IV SCH (19:55)
[2020-02-15 05:55] LABS: Hematocrit (blood only) 38.2 % (42-52); Mean Corpuscular Hemoglobin 31.5 pg (25-34); Mean Corpuscular Volume 92.5 fL (80-100); Mean Platelet Volume 10.9 fL (7.4-10.4); Platelet Count 142 K/uL (130-400); RDW Coefficient of Variation 13.5 % (11.5-14.5); RDW Standard Deviation 45.9 fL (36.4-46.3); Red Blood Count 4.13 M/uL (4.7-6.1)
[2020-02-15 06:31] LABS: Albumin Level 2.9 gm/dl (3.4-5.0); BUN Creatinine Ratio 13.4 (10-20); Calcium 8.6 mg/dl (8.5-10.1); Creatinine Clr Calc Pharmacy 94.1 ml/min; Est GFR (African American) 113.4; Est GFR (Non-African American) 97.8; Potassium 3.8 mmol/L (3.5-5.1)
[2020-02-15 06:36] LABS: Albumin Globulin Ratio 0.9 (0.9-2); Bilirubin,Total 0.5 mg/dl (0.2-1); Globulin 3.3 gm/dl (2.5-4.0); Total Protein 6.2 gm/dl (6.4-8.2)
--- NOTE | 2020-02-15 08:32 | Hospitalist Progress Note ---
Date of Service February 15, 2020 Assessment & Plan (1) Hematuria, gross: * Began after Arellano catheter insertion at [place] 02/12 for urinary retention which which was appropriate as he had over 1000cc drained at time of insertion. UTI/acute prostatitis, severe BPH, and bladder or prostate cancer can all contribute to bleeding. * Placed HIM consult for records from Dr. Cummings from [facility] for most recent notes/MRI findings * --> scanned into the chart and show MRI Feb 2017 with PI-RADS3 and 2 lesions noted -- at that time PSA 30. No listed biopsies positive for prostate ca, but pt with brother and father with hx prostate Ca. * Requesting MRI results from --> no evidence of high-grade prostate ca. marked thinning of peripheral zones with few linear densities of abn signal intensity on T2 weigt images (PI-RADS 2). Diffuse heterogenous signal intensity and enhancement of central gland with multiple indeterminate foci within both aspects of central gland (PI-RADS 3). Significant enlargement of the prostate gland with numerous bilateral glandular and stromal BPH nodules. Estimate gland volume 388mL. Bilateral pelvic and inguinal multiple nonenlarged to borderline enlarged lymph nodes which could be benign or malignancy. * CT A/P with irregular urinary bladder wall thickening and trabeculation with marked prostatomegaly. Perivesicular stranding with trace pelvic free fluid. Urinary bladder wall thickening may be secondary to chronic bladder outlet obstruction however could be correlated with cystoscopy to exclude malignancy. Numerous pathologic pelvic lymph nodes seen within the perirectal and perivesicular distributions are suggestive of malignancy from unknown primary. Oncologic workup is needed. Mild dilation of the bilateral ureters without hydronephrosis. Additionally, there is question urothelial thickening on the right. Nonobstructing left nephrolithiasis. * Urology on consult -- appreciate assistance. No acute intervention at this time. * H/h stable, and improved to 13.0/38.2 * Manual irrigation of Arellano. No 3-way for CBI at this time * PSA elevated at 75.9, however patient on finasteride and per Urology, corrected value closer to 150. Given weight loss and reported concerning findings on previous MRI, concerns for malignancy * Given Rocephin 2gm IV --> Urine culture negative but will continue for prostatitis and sent with presciption for Ciprofloxacin 500mg BID for 4 weeks * Continue Flomax * CM assisting to set up HH for Arellano management * Urology will have office set up appointment in 1-2 weeks for outpatient cysto/biopsy * Attempted to call three times this afternoon for update and possible discharge but patient stated she may not be able to get him today as she was not feeling well and both her and sister have diarrhea * Continue to hold Hold ASA, fish oil. * Continue to monitor (2) Acute urinary retention: * 2nd to massive BPH. * Cannot rule out prostate ca. * Cannot rule out acute prostatitis/UTI. * Continue Arellano, IV Rocephin, Flomax, Finasteride * Urology consulted as above * BMP with stable Cr (3) BPH (benign prostatic hyperplasia): * Chronic, severe. * PSA markedly elevated, 75.9 (previous values 20-40 per patient report), with correction to 150 per Urology as he is on dual therapy with finasteride/flomax * Continue finasteride, flomax * Treat for possible prostatitis as above (4) Elevated PSA: * Chronic, but much worse as above * Will likely need prostate biopsy - last biopsy was ~5 years ago. * Will have f/u in 1-2 weeks for cysto/biopsy and will be discharged with arellano/HH (5) H/O prostate biopsy: * Multiple, last being 2014. * see above -- requesting records for most recent MRI (6) Hypokalemia: * K 3.3 on admission -- added to IVF. Mag 2.1 * Resolved -- K 3.8 (7) Weight loss: * in light of CT abd/pelvis findings, raised concerns for malignancy (8) Hyperglycemia: * Random glucose >200 and A1c was added to AM labs * A1c 5.5 and glucose on BMP 121 (9) Mood disorder: * Stable * Continue paxil 20mg daily (10) Constipation: * No BM since 02/11. Denies abdominal pain. Encouraged ambulation and will add miralax/colace * Continue to monitor (11) DVT prophylaxis: * Chemical means contraindicated in light of hematuria * SCDs for now Dispo: possible discharge this evening, however given transportation issues and unable to reach , will likely discharge tomorrow Admission and Anticipated Discharge Date Admission Date: February 13, 2020 Supervising Physician Co-Signing Physician Notes PA Supervision Note: I did not personally see or examine the patient today, but I verified all mustafa points of GREG Navarro's assessment and plan with the following exceptions/additions: None Subjective Patient evaluated this morning. Feeling well. No abdominal pain, has been passing gas but no BM. Discussed adding bowel regimen and encouraged ambulation which he may do in the halls this afternoon with . Discussed HIM request with records from Dr Cummings but now requesting actual report of MRI given no history of prostate CA listed under previous biopsies. Arellano with decreased blood/clots (but still red drainage into bag), clearing up in the tube. Denies fever, chills, chest pain, shortness of breath, abdominal pain, nausea, vomiting, back pain or pain of any kind. Stated Urology was in this morning and did mention something about a prostatectomy/biopsy at [facility], but no note listed at this time yet. Discussed if would like update at any point to please just call in and would be happy to give update. Questions/concerns addressed. Review of Systems Review of Systems: All systems reviewed & are unremarkable except as noted in HPI & below Physical Exam Constitutional: well developed; no acute distress and no altered mental status Eyes: + anicteric sclerae and PERRL ENMT: external ear and nose normal, oropharynx normal Neck: trachea midline, no thyromegaly Respiratory: normal respiratory effort, lungs clear to auscultation Cardiovascular: Rate/Rhythm: regular rate and regular rhythm Heart Sounds: normal S1 and normal S2; no murmur Vessels: no JVD Extremities: no edema Gastrointestinal (Abdomen): Inspection/Auscultation: normal bowel sounds Percussion/Palpation: abdomen nontender, no guarding, abdomen not rigid and no hepatosplenomegaly Musculoskeletal: no cyanosis or clubbing, extremities motor strength 5/5 Skin: no rashes, warm and dry Neurologic: deep tendon reflexes 2+ bilaterally and moves all extremities Psychiatric: A+Ox3, euthymic affect Genitourinary: arellano draining pink-tinged urine, tubing clearer yellow. no clots present Lymphatic: no cervical lymphadenopathy Results & Data Results & Data ([facility]) Vital Signs (Past 12 Hours) Vital Signs Temp Pulse Resp BP Pulse Ox 02/15/20 08:03 36.8 C 58 L 18 127/72 97 02/14/20 23:33 36.9 C 62 16 133/80 96 Laboratory Results 02/15/20 02/15/20 Range/Units 05:26 05:26 WBC 7.80 (4.8-10.8) K/uL RBC 4.13 L (4.7-6.1) M/uL Hgb 13.0 L (14.0-18.0) g/dL Hct 38.2 L (42-52) % MCV 92.5 (80-100) fL MCH 31.5 (25-34) pg MCHC 34.0 (32-36) g/dL RDW Std Deviation 45.9 (36.4-46.3) fL RDW Coeff of Robert 13.5 (11.5-14.5) % Plt Count 142 (130-400) K/uL MPV 10.9 H (7.4-10.4) fL Sodium 142 (136-145) mmol/L Potassium 3.8 (3.5-5.1) mmol/L Chloride 108 H (98-107) mmol/L Carbon Dioxide 30 (21-32) mmol/L Anion Gap 4.0 (3-11) BUN 9 (7-18) mg/dl Creatinine 0.64 (0.6-1.4) mg/dl Est Cr Clr Drug Dosing 94.1 ml/min Est GFR ( Amer) 113.4 Est GFR (Non-Af Amer) 97.8 BUN/Creatinine Ratio 13.4 (10-20) Glucose 121 H (70-99) mg/dl Calcium 8.6 (8.5-10.1) mg/dl Total Bilirubin 0.5 (0.2-1) mg/dl AST 10 L (15-37) U/L ALT 14 (12-78) U/L Alkaline Phosphatase 80 (45-117) U/L Total Protein 6.2 L (6.4-8.2) gm/dl Albumin 2.9 L (3.4-5.0) gm/dl Globulin 3.3 (2.5-4.0) gm/dl Albumin/Globulin Ratio 0.9 (0.9-2) PG Care Time/CCT Total # of Minutes Spent Total Time Spent with Patient: Total time spent is greater than 50% in coordination of care (as documented) at patient's floor/unit and/or counseling patient: Coding Level of Care Code None Diagnoses Hematuria, gross R31.0 Acute urinary retention R33.8 BPH (benign prostatic hyperplasia) N40.1; R33.8 Lower urinary tract symptom detail: urinary retention Lower urinary tract symptom presence: symptoms present Elevated PSA R97.20 H/O prostate biopsy Z98.890 Hypokalemia E87.6 Weight loss R63.4 Hyperglycemia R73.9 Mood disorder F39 Constipation K59.00 DVT prophylaxis Z29.9 (1) BPH (benign prostatic hyperplasia) Lower urinary tract symptom detail: urinary retention Lower urinary tract symptom presence: symptoms present Qualified Code(s): N40.1 - Benign prostatic hyperplasia with lower urinary tract symptoms; R33.8 - Other retention of urine
[2020-02-15] MEDS: FINASTERIDE 5 MG TAB PO SCH (09:10)
[2020-02-15] MEDS: TAMSULOSIN HCL 0.4 MG CAP PO SCH (09:10)
[2020-02-15] MEDS: MULTIVITAMIN TAB PO SCH (09:10)
[2020-02-15] MEDS: PARoxetine HCL 20 MG TAB PO SCH (09:10)
[2020-02-15] MEDS: cefTRIAXone SODIUM 2,000 MG in DEXTROSE 5% 50 ML IV SCH (09:13)
[2020-02-15] MEDS ORDERED: DOCUSATE SODIUM 100 MG CAP PO SCH (11:30)
[2020-02-15] MEDS ORDERED: POLYETHYLENE (MIRALAX) 17 GM PACK PO SCH (11:30)
--- NOTE | 2020-02-15 11:40 | Urology Progress Note ---
Date of Service February 15, 2020 Assessment & Plan (1) Hematuria, gross: (2) Acute urinary retention: 74yo M admitted with gross hematuria and acute urinary retention secondary to an enlarged prostate -Remains afebrile, White count and creatinine are stable -Urine culture was negative -Continue Jones catheter, irrigation prn -Continue Flomax and Finasteride -No acute intervention indicated at this time -Will continue to follow while inpatient Admission and Anticipated Discharge Date Admission Date: February 13, 2020 Subjective 74yo M admitted with gross hematuria and acute urinary retention secondary to an enlarged prostate Patient examined at bedside this morning Awake, resting in bed on arrival Denies fevers or chills Tolerating PO diet without nausea or vomiting Denies any pain or discomfort Jones catheter intact, draining pink-tinged urine Chart Review: Afebrile WBC 7.80 Hgb 13.0 Cr 0.64 Urine culture - Negative Continues on IV Rocephin No additional Urological concerns today Review of Systems Constitutional: as per Subjective / HPI Gastrointestinal: as per Subjective / HPI Genitourinary: + as per Subjective / HPI Physical Exam Constitutional: well developed and well nourished; no acute distress and not ill appearing Respiratory: normal respiratory effort and able to speak in complete sentences Gastrointestinal (Abdomen): Inspection/Auscultation: abdomen normal to inspection; abdomen not distended Musculoskeletal: Head/Neck/Chest: normocephalic Skin: no rashes, warm and dry Neurologic: moves all extremities and awake; not confused Genitourinary: Jones catheter intact, draining pink-tinged urine with a few small clots noted in tubing Results & Data ([facility]) Vital Signs (Past 12 Hours) Vital Signs Temp Pulse Resp BP Pulse Ox 02/15/20 08:03 36.8 C 58 L 18 127/72 97 PG Care Time/CCT Total # of Minutes Spent Total Time Spent with Patient: Total time spent is greater than 50% in coordination of care (as documented) at patient's floor/unit and/or counseling patient: Coding Level of Care Code 44571 Subseq Hosp Care Lvl 2 Diagnoses Hematuria, gross R31.0 Acute urinary retention R33.8
--- NOTE | 2020-02-15 14:54 | Discharge Summary ---
Date of Service February 15, 2020 Admission HPI Per Admitting Provider 74yo male with history of elevated PSA and BPH for several decades presents with gross hematuria. Patient reports that mid-afternoon on 02/12/20 he started to have difficulty voiding. He was unsuccessful at passing any urine for the remainder of Thursday. Early Thursday am, about 5-6am, he became distended and very uncomfortable due to the inability to void. He and his went to [facility] in [place]. He had a arellano placed and immediately 1000+cc of clear urine exuded. Patient recalls that the catheter insertion was uncomfortable but it only took [address] While preparing for d/c home the urine became grossly bloody. The patient was discharged but returned to [facility] a few hours later for a recheck of the hematuria. He was given reassurance and d/c home. Upon return to his house the urine worsened further and they went a 3rd time to the hospital in [place]. Because of a long wait they ultimately came to [facility] for evaluation. Patient states he was diagnosed with BPH in the . He takes dual-BPH medications. He has had numerous prostate biopsies dating back to the late . Most recent biopsy was in 2015. All biopsies have been negative for prostate cancer. He recalls that his most recent PSAs have ranged from 20s to 40s. Patient denies any dysuria or prior hematuria. He does have nocturia and poor stream on chronic basis. mentions that he has lost about 7 pounds of weight over the last few months. She also reports that they moved from [place] to [place] within the last 6-8 weeks. Admission Exam Per Admitting Provider Constitutional: no acute distress and no altered mental status Eyes: PERRL ENMT: external ear and nose normal, oropharynx normal Neck: trachea midline, no thyromegaly Respiratory: normal respiratory effort, lungs clear to auscultation Cardiovascular: Rate/Rhythm: regular rate and regular rhythm Heart Sounds: normal S1 and normal S2; no murmur Vessels: posterior tibial pulses present and dorsalis pedis pulses present; no JVD Extremities: no edema Gastrointestinal (Abdomen): Inspection/Auscultation: + abdomen distended and normal bowel sounds Percussion/Palpation: + abdomen tender (suprapubic region ); no hepatosplenomegaly AFTAB deferred Musculoskeletal: no cyanosis or clubbing, extremities motor strength 5/5 Skin: no rashes, warm and dry Neurologic: deep tendon reflexes 2+ bilaterally and moves all extremities Psychiatric: A+Ox3, euthymic affect Lymphatic: no cervical lymphadenopathy Principal Diagnosis Hematuria, acute prostatitis, elevated PSA Discharge Exam Constitutional well developed; no acute distress and no altered mental status Eyes + anicteric sclerae and PERRL ENMT external ear and nose normal, oropharynx normal Neck trachea midline, no thyromegaly Respiratory normal respiratory effort, lungs clear to auscultation Cardiovascular Rate/Rhythm: regular rate and regular rhythm Heart Sounds: normal S1 and normal S2; no murmur Vessels: no JVD Extremities: no edema Gastrointestinal (Abdomen) Inspection/Auscultation: normal bowel sounds Percussion/Palpation: abdomen nontender, no guarding, abdomen not rigid and no hepatosplenomegaly Musculoskeletal no cyanosis or clubbing, extremities motor strength 5/5 Skin no rashes, warm and dry Neurologic deep tendon reflexes 2+ bilaterally and moves all extremities Psychiatric A+Ox3, euthymic affect Genitourinary arellano with pink tinged urine, no clots present. tubing clearer yellow urine Lymphatic no cervical lymphadenopathy Discharge Data Allergies Allergy/AdvReac Type Severity Reaction Status Date / Time No Known Allergies Allergy Unverified 02/13/20 17:46 Consultations 02/13/20 18:50 ED Decision to Admit Stat 02/13/20 21:20 Consult Urology Routine 02/14/20 12:23 Consult Health Information Management Routine 02/15/20 10:00 Consult Health Information Management Routine Ordered Studies 02/13/20 14:45 CT abd pelvis IV con only Stat Hospital Course (1) Hematuria, gross: * Began after Arellano catheter insertion at [place] 02/12 for urinary retention which which was appropriate as he had over 1000cc drained at time of insertion. UTI/acute prostatitis, severe BPH, and bladder or prostate cancer can all contribute to bleeding. * Placed HIM consult for records from Dr. Cummings from [facility] for most recent notes/MRI findings * --> scanned into the chart and show MRI Feb 2017 with PI-RADS3 and 2 lesions noted -- at that time PSA 30. No listed biopsies positive for prostate ca, but pt with brother and father with hx prostate Ca. * Requesting MRI results from --> no evidence of high-grade prostate ca. marked thinning of peripheral zones with few linear densities of abn signal intensity on T2 weigt images (PI-RADS 2). Diffuse heterogenous signal in tensity and enhancement of central gland with multiple indeterminate foci within both aspects of central gland (PI-RADS 3). Significant enlargement of the prostate gland with numerous bilateral glandular and stromal BPH nodules. Estimate gland volume 388mL. Bilateral pelvic and inguinal multiple nonenlarged to borderline enlarged lymph nodes which could be benign or malignancy. * CT A/P with irregular urinary bladder wall thickening and trabeculation with marked prostatomegaly. Perivesicular stranding with trace pelvic free fluid. Urinary bladder wall thickening may be secondary to chronic bladder outlet obstruction however could be correlated with cystoscopy to exclude malignancy. Numerous pathologic pelvic lymph nodes seen within the perirectal and perivesicular distributions are suggestive of malignancy from unknown primary. Oncologic workup is needed. Mild dilation of the bilateral ureters without hydronephrosis. Additionally, there is question urothelial thickening on the right. Nonobstructing left nephrolithiasis. * Urology consulted. No acute intervention at this time and provided supportive care, abx/manual irrigation * H/h stable, and actually improved to 13.0/38.2 prior to discharge * Manual irrigation of Arellano while inpatient with resolution of clots and discharged on * PSA historically had been 20-40s, however repeat during admission with value 75.9 --> per Urology, given patient on finasteride, corrected value closer to 150. * Given weight loss and family history of prostate ca along with findings on imaging, highly concerning for malignancy and will need follow-up outpatient either with our group for cysto/biopsy in 2 weeks or sooner if able to arrange [facility] [place] as he recently moved to the area in last 2 months and had not established care as of yet. Originally to have appt beginning of March but patient stated he and will call to see about sooner appointment. * Treated with Rocephin IV while inpatient and urine culture negative --> c ontinued cipro BID at discharge for 4 weeks for prostatitis * Continued flomax, finasteride and provided new prescription at discharge * set up for arellano management * Instructed to continue to hold ASA and fish oil until hematuria clears (2) Acute urinary retention: * 2nd to massive BPH. Cannot rule out prostate ca, acute prostatitis * Continued Arellano at discharge -- to remain in additional 7-10 days. Needs to f/u with urology as above. HH arranged by CM for arellano management * BMP continued to show stable Cr (3) BPH (benign prostatic hyperplasia): * Chronic, severe. * PSA markedly elevated, 75.9 (previous values 20-40 per patient report), with correction to 150 per Urology as he is on dual therapy with finasteride/flomax * Continued finasteride, flomax * Treated for possible prostatitis as above (4) Elevated PSA: * Chronic, but much worse as above * Will need prostate biopsy - last biopsy was ~5 years ago. * Will have f/u in 1-2 weeks for cysto/biopsy and will be discharged with arellano/HH unless able to be seen by [facility] [place] sooner (5) H/O prostate biopsy: * Multiple, last being 2014. No cancer noted per outpatient records (6) Hypokalemia: * Resolved (7) Weight loss: * in light of CT abd/pelvis findings, raised concerns for malignancy as above. Will need follow-up cysto/biopsy and Oncological work-up pending biopsies as above (8) Hyperglycemia: * Had a random glucose >200 and A1c was added to labs. A1c 5.5 (9) Mood disorder: * Stable * Continued paxil 20mg daily (10) Constipation: * No BM since 02/11. Denies abdominal pain. Encouraged ambulation and added miralax/colace. Pt feels he will be able to have BM once at home (11) DVT prophylaxis: * Chemical means contraindicated in light of hematuria * SCDs while inpatient Discharged home with . To [facility] with [facility] sooner than beginning of March as previously scheduled. May benefit from care arranged through [place] given they live in [place] and he receives care through [place] but has not yet been established since moving to [place]. Total Time Total Time Spent Total Time Spent (In Minutes): 70 Discharge Plan Discharge Items Patient Disposition: Home - Home Health Services Reason For Visit: GROSS HEMATURIA PROBABLE UTI/PROSTATITIS Discharge Diagnosis: Hematuria, BPH, Prostatitis Condition on Discharge: Good Activity: As commented below Activity Comment: off work until cleared by Urology Non-emergency contact: Primary Care Provider and Urologist Call non-emergency contact if: you have any medication questions, your symptoms worsen and your pain is not controlled Follow-up/Referrals: Hernan Green MD [Physician] - (1-2 weeks . their office to set up) PCP,NO [Primary Care Provider] - Diet: Regular Addtl Attending Provider Instructions: You have been hospitalized for hematuria (blood in your urine). Arellano catheter was maintained and your blood counts have improved. You were evaluated by Urology and your records from [place] were received. There were suspicious lesions on MRI but no report of high-grade prostate cancer. This will need further work-up and Urology will call you to set up an appointment in the next 1-2 weeks for an outpatient cystoscopy/biopsy. If you do not hear from them tomorrow, please call their office at [phone]. You are being sent a prescription for Ciprofloxacin 500mg to take by mouth for the next 4 weeks for prostatitis. You have also been sent prescriptions for flomax and proscar. Case management is working on getting home health set up through [place] to help management of your arellano catheter. You may want to consider following up with Urology through [place] closer to home if you choose. Please continue to hold your aspirin and fish oil and avoid any ibuprofen/motrin. If you need something for pain please utilize tylenol. As discussed, please call the [facility] as soon as possible to set up follow-up as you should ideally be seen within the week of discharge. If you have any worsening bleeding, shortness of breath, chest pain or for any other symptoms that are concerning for you please go to the nearest emergency department. It has been a pleasure being a part of the medical team caring for you during your hospitalization. Take care! Pending Studies at Discharge: No Stand-Alone Forms: My [employer] Controls, Work/School Release (Inpt), Smoking Cessation Medications and DC Order Prescriptions: New ciprofloxacin HCl 500 mg tablet 500 mg PO BID 28 Days Qty: 56 RF: 0 Lactobacillus acidophilus 10 billion cell capsule 10,000 mmu cells PO DAILY Qty: 30 RF: 0 Continued multivitamin Tablet 1 tab PO DAILY RF: 0 tamsulosin 0.4 mg capsule 0.4 mg PO DAILY 30 Days Qty: 30 RF: 0 finasteride 5 mg tablet 5 mg PO DAILY 30 Days Qty: 30 RF: 0 paroxetine HCl 20 mg tablet 20 mg PO DAILY 30 Days Qty: 30 RF: 1 Discontinued [place] 3 Capsule 1,000 mg PO DAILY RF: 0 Discharge Orders: Discharge Order (Routine); Ordered 02/15/20 Ordered By: Prema Navarro Admission Data Admit Date/Time: 02/13/20 19:44 Attending Provider: Denise Watts Admit Provider: Serafin Pritchett Primary Care Provider: PCP,NO Other Providers: Serafin Pritchett ; Prasanna Floyd Other Interventions: Discharge Summary Assessment (RN) Last Done: 02/15/20 16:39 Supervising Physician Co-Signing Physician Notes PA Supervision Note: I personally saw and examined the patient. I verified all mustafa points and agree with GREG Navarro with the following exceptions and/or additions: Patient doing very well, denies abdominal pain or flank pain. There is only slight pink tinge to the urine in the Arellano catheter bag today. He is afebrile. Denies chest pain or shortness of breath. Vitals reviewed Gen: AAOx3, NAD HEENT: Anicteric sclerae, EOMI CV: RRR no mgr nl S1S2 Pulm: CTAB no wcr Abd: +BS soft NT ND no masses or hernias, Arellano catheter in place Ext: No edema, 2+ DP pulses Skin: No rashes, warm/dry Neuro: Full strength throughout Laboratory values reviewed 74-year-old male here with a history of BPH and now suspected prostate cancer, depression, here with suspected acute prostatitis and significant urinary retention due to obstructive uropathy and hematuria. Arellano catheters remain in place and needs close follow-up with urology. Will likely need TURP in the future. Continue Cipro for 4 weeks for acute prostatitis Continue other home medications Coding Level of Care Code D/C Day Management >30 mins Diagnoses Hematuria, gross R31.0 Acute urinary retention R33.8 BPH (benign prostatic hyperplasia) N40.1; R33.8 Lower urinary tract symptom detail: urinary retention Lower urinary tract symptom presence: symptoms present Elevated PSA R97.20 H/O prostate biopsy Z98.890 Hypokalemia E87.6 Weight loss R63.4 Hyperglycemia R73.9 Mood disorder F39 Constipation K59.00 DVT prophylaxis Z29.9
== END 2020-02-15 19:31 | disposition home health service (06) | DRG 728 ==
LOC: ED 14:26 → SUATTDRO 19:44 → 3W 19:44
DX: E87.6 Hypokalemia; R63.4 Abnormal weight loss; C61 Malignant neoplasm of prostate; Z80.42 Family history of malignant neoplasm of prostate; F32.9 Major depressive disorder, single episode, unspecified; D64.9 Anemia, unspecified; N41.0 Acute prostatitis; N13.8 Other obstructive and reflux uropathy; Z79.899 Other long term (current) drug therapy; K59.00 Constipation, unspecified; Z87.891 Personal history of nicotine dependence; R31.0 Gross hematuria; N40.1 Benign prostatic hyperplasia with lower urinary tract symptoms; Z87.442 Personal history of urinary calculi; R73.9 Hyperglycemia, unspecified; R33.8 Other retention of urine

== ENCOUNTER 2020-04-26 06:35 | Inpatient (IN) ==
--- NOTE | 2020-04-12 16:18 | PAT Medication Instructions ---
Medication Instructions Date of Service April 12, 2020 Home Medications Medication Instructions Recorded finasteride 5 mg PO DAILY 30 Days #30 tab 02/15/20 paroxetine HCl 20 mg PO DAILY 30 Days #30 tab 02/15/20 tamsulosin 0.4 mg PO DAILY 30 Days #30 cap 02/15/20 multivitamin 1 tab PO DAILY finasteride 5 mg PO DAILY paroxetine HCl 20 mg PO DAILY tamsulosin 0.4 mg PO DAILY DO NOT take the morning of surgery multivitamin 1 tab PO DAILY Take morning of surgery With a small sip of water, OTHERWISE NOTHING TO EAT OR DRINK AFTER MIDNIGHT: finasteride 5 mg PO DAILY paroxetine HCl 20 mg PO DAILY tamsulosin 0.4 mg PO DAILY Other Notes If you have any questions please call us at [phone] or [phone] or [phone] or [phone]
--- NOTE | 2020-04-16 08:35 | Anesthesiology Consultation ---
Date of Service April 16, 2020 Assessment & Plan (1) Encounter for pre-operative examination: Per assessment on 04/16: Travel screen negative. No known COVID-19 positive contacts or current COVID-19 related symptoms. Surgeon arranging preop COVID testing (scheduled 04/19). Awaiting results. Chart Review Chart Review: Acceptable Risk for Surgery and Patient seen in Pre Admission Testing Teaching & Discussion Pre-Anesthesia Teaching/Discussion Notes: Instructed NPO after midnight before surgery,except medications with 15 cc of water. Medication instructions provided according to the PAT guidelines. History Surgery Operation Date: 04/26/20 10:50 Proposed Procedures p Robotic Assisted Laparoscopic Radical Retropubic Prostatectomy, Possible Open, Possible Pelvic Lymph Node Dissection, Possible Suprapubic Tube Placement - Prasanna Floyd, Height/Weight Height: 5 ft 5.5 in Weight: 74.3 kg Allergies Allergy/AdvReac Type Severity Reaction Status Date / Time No Known Allergies Allergy Verified 04/12/20 14:33 Medications Home Medications Medication Instructions Recorded Confirmed Last Taken multivitamin 1 tab PO DAILY 02/13/20 04/12/20 Unknown finasteride 5 mg PO DAILY 30 Days #30 tab 02/15/20 04/12/20 Unknown paroxetine HCl 20 mg PO DAILY 30 Days #30 tab 02/15/20 04/12/20 Unknown tamsulosin 0.4 mg PO DAILY 30 Days #30 cap 02/15/20 04/12/20 Unknown Past Medical History Medical History Anxiety Bladder stone BPH (benign prostatic hyperplasia) Elevated PSA History of kidney stones Hyperlipidemia Lymph node enlargement Exercise / Class Metabolic Activity II 4-5 Yardwork/Stairs/Walk up hill Past Family History Family History Father , age 67 Prostate cancer Lung cancer Colorectal cancer Brother Prostate cancer Mother Family history of diabetes mellitus Other No family history of adverse response to anesthesia Past Surgical History Surgical History H/O lithotripsy H/O prostate biopsy History of bunionectomy R/L History of colonoscopy Stites teeth removed Past Anesthesia History No Hx of Anesthesia Complications and No Family Hx of Anesthesia Complications Social History Smoking Status: Former smoker tobacco type: cigarettes Do You Dip or Chew Tobacco: No Smoking End Date: Quit 50 years ago Hx Alcohol Use: Yes Alcohol type: beer, wine and hard liquor alcohol intake frequency: holidays/special occasions only Hx Substance Use: No substance use type: does not use Review of Systems Patient denies chest pain, shortness of breath, dyspnea on exertion, fever, chills, cough, wheezing, palpitations. Physical Exam Vital Signs VITALS BP 127/74 P 63 TEMP 98.6 SP02 97%RA RESP 16 PHYSICAL Full neck and c-spine range of motion. Full TMJ range of motion. TMD 3 finger breaths Mallampati Score 2 Dentition: missing molars Lungs: clear throughout to auscultation Cardiac: regular rate and rhythm, no murmurs noted Spine: normal Carotid arteries: negative bruit Extremities: no edema Short handley Testing Laboratory Results 04/16/20 08:50 04/16/20 08:50 Urine Color Yellow 04/16/20 08:50 Urine Appearance Clear (Clear) 04/16/20 08:50 Urine pH 7.5 (4.5-7.5) 04/16/20 08:50 Ur Specific [place] 1.009 (1.000-1.030) 04/16/20 08:50 Urine Protein Negative (Negative) 04/16/20 08:50 Urine Glucose (UA) Negative (Negative) 04/16/20 08:50 Urine Ketones Negative (Negative) 04/16/20 08:50 Urine Nitrite Negative (Negative) 04/16/20 08:50 Ur Leukocyte Esterase Trace (Negative) H 04/16/20 08:50 Urine WBC (Auto) 1-5 /hpf (0-5) 04/16/20 08:50 Urine RBC (Auto) 0-4 /hpf (0-4) 04/16/20 08:50 U Hyaline Cast (Auto) 0 /lpf (0-5) 04/16/20 08:50 U Epithel Cells (Auto) 0-5 /lpf (0-5) 04/16/20 08:50 Urine Bacteria (Auto) Negative (Negative) 04/16/20 08:50 Electrocardiogram Date: 04/16/20 SR with frequent PVC's at 62bpm. Otherwise normal ECG. Chest X-Ray Date: 04/16/20 FINDINGS: Cardiomediastinal and hilar silhouettes are within normal limits. No pneumothorax, pleural effusion, airspace consolidation or overt pulmonary edema. Degenerative changes of the shoulders and spine. IMPRESSION: No acute process.
--- NOTE | 2020-04-16 09:28 | Electrocardiogram Report ---
Test Reason : Blood Pressure : / mmHG Vent. Rate : 062 BPM Atrial Rate : 062 BPM P-R Int : 136 ms QRS Dur : 090 ms QT Int : 446 ms P-R-T Axes : 068 049 057 degrees QTc Int : 452 ms Sinus rhythm with frequent Premature ventricular complexes Otherwise normal ECG No previous ECGs available Confirmed by Kg Odonnell ([id number]) on 04/16/2020 9:27:57 AM Referred By: Prasanna Floyd Confirmed By:Kg Odonnell
--- NOTE | 2020-04-16 09:44 | XRay Report ---
XR chest Pre-admission PA/Lat HISTORY: 74 years-old Male pat preoperative exam. No acute chest complaints COMPARISON: CT abdomen and pelvis 02/13/2020 TECHNIQUE: PA and lateral views of the chest FINDINGS: Cardiomediastinal and hilar silhouettes are within normal limits. No pneumothorax, pleural effusion, airspace consolidation or overt pulmonary edema. Degenerative changes of the shoulders and spine. IMPRESSION: No acute process. ACT 112: Negative or not required by law. The above report was generated using voice recognition software. It may contain grammatical, syntax o r spelling errors. Electronically signed by: Chase Gonzalez M.D. 04/16/2020 9:43 AM
[2020-04-16 10:03] LABS: Basophils # (auto) 0.02 K/uL (0-0.2); Basophils % (auto) 0.3 %; Eosinophils # (auto) 0.16 K/uL (0-0.5); Eosinophils % (auto) 2.5 %; Hematocrit (blood only) 40.6 % (42-52); Hemoglobin 13.4 g/dL (14.0-18.0); Immature Granulocytes # (auto) 0.01 K/uL (0.00-0.02); Immature Granulocytes % (auto) 0.2 %; Lymphocytes # (auto) 1.63 K/uL (1.2-3.4); Lymphocytes % (auto) 25.8 %; Mean Corpuscular Hemoglobin 30.2 pg (25-34); Mean Corpuscular Volume 91.6 fL (80-100); Mean Platelet Volume 10.4 fL (7.4-10.4); Monocytes # (auto) 0.39 K/uL (0.11-0.59); Monocytes % (auto) 6.2 %; Neutrophils # (auto) 4.11 K/uL (1.4-6.5); Platelet Count 160 K/uL (130-400); RDW Coefficient of Variation 13.4 % (11.5-14.5); RDW Standard Deviation 44.3 fL (36.4-46.3); Red Blood Count 4.43 M/uL (4.7-6.1); White Blood Count 6.32 K/uL (4.8-10.8)
[2020-04-16 10:13] LABS: Alanine Aminotransferase 19 U/L (12-78); Albumin Level 3.7 gm/dl (3.4-5.0); Aspartate Aminotransferase 11 U/L (15-37); Bilirubin Direct < 0.1 mg/dl (0-0.2); Blood Urea Nitrogen 10 mg/dl (7-18); Calcium 9.1 mg/dl (8.5-10.1); Carbon Dioxide 30 mmol/L (21-32); Chloride 108 mmol/L (98-107); Creatinine Clr Calc Pharmacy 85.8 ml/min; Est GFR (African American) 109.9; Est GFR (Non-African American) 94.8; Glucose 97 mg/dl (70-99); Sodium 140 mmol/L (136-145)
[2020-04-16 10:15] LABS: Alkaline Phosphatase 97 U/L (45-117); Bilirubin,Total 0.3 mg/dl (0.2-1); Total Protein 7.5 gm/dl (6.4-8.2)
[2020-04-16 10:22] LABS: Appearance Urine Clear (Clear); Bacteria Urine Automated Negative (Negative); Bilirubin Urine Negative (Negative); Blood Urine Negative (Negative); Cast Urine Automated 0 /lpf (0-5); Color Urine Yellow; Epithelial Cell Urine Auto 0-5 /lpf (0-5); Glucose Urine UA Negative (Negative); Ketones Urine Negative (Negative); Leukocyte Esterase Urine Trace (Negative); Nitrite Urine Negative (Negative); Protein Urine Negative (Negative); RBC Urine Automated 0-4 /hpf (0-4); Specific Gravity Urine 1.009 (1.000-1.030); Urobilinogen Urine Negative (Negative); pH Urine 7.5 (4.5-7.5)
[~2020-04-26 06:35] MED LIST: HEPARIN SOD 5,000 UNIT/0.5 ML VIAL SQ SCH; LACTATED RINGER'S 1,000 ML IV SCH; LR 15ML/HR IV SCH
[2020-04-26] MEDS ORDERED: BUPIVACAINE 0.5 % 5 MG/1 ML MPF 30ML VIAL ONE (08:05)
[2020-04-26] MEDS ORDERED: FAMOTIDINE/PF 20 MG/2 ML VIAL IV ONE (08:11)
[2020-04-26] MEDS ORDERED: MIDAZOLAM HCL 1 MG/ML 2ML VIAL ONE (08:17)
[2020-04-26] MEDS ORDERED: fentaNYL citrate 100 MCG/2 ML VIAL ONE ×3 (08:17→15:07)
--- NOTE | 2020-04-26 08:23 | History & Physical Bridge Note ---
Date of Service April 26, 2020 History & Physical Bridge Note I have examined the patient, reviewed the History & Physical and in the interval since the performance of the History & Physical I have noted the following changes of clinical significance: no changes noted
[2020-04-26] MEDS: ceFAZolin 2000MG 2,000 MG/15 ML SYR IV SCH ×3 (08:31→20:21)
[2020-04-26] MEDS ORDERED: BACITRACIN INJ 50,000 UNIT VIAL ONE ×2 (09:10→09:31)
[2020-04-26] MEDS ORDERED: LIDOCAINE 2% 2 ML VIAL/AMP(20MG/ML) INFIL ONE (09:34)
[2020-04-26] MEDS ORDERED: PROPOFOL IV EMULSION 10 MG/ML 20 ML VIAL IV ONE (09:34)
[2020-04-26] MEDS ORDERED: HYDROmorphone INJ 2 MG/ML SYR/VIAL ONE (09:35)
[2020-04-26] MEDS ORDERED: DEXAMETHASONE SOD INJ 4 MG/ML VIAL ONE (09:35)
[2020-04-26] MEDS ORDERED: PHENYLEPHRINE HCL 10 MG/ML VIAL ONE (09:35)
[2020-04-26] MEDS ORDERED: ONDANSETRON INJ 2 MG/ML 2 ML VIAL ONE (09:35)
[2020-04-26] MEDS ORDERED: PHENYLEPHRINE 100MCG/ML 5ML SYR ONE (09:35)
[2020-04-26] MEDS ORDERED: ROCURONIUM BROMIDE 10 MG/ML 5 ML VIAL IV ONE (09:49)
[2020-04-26] MEDS ORDERED: ePHEDrine sulfate 50 MG/ML AMP IV PRN (10:30)
[2020-04-26] MEDS ORDERED: fentaNYL citrate 100 MCG/2 ML VIAL IV PRN (10:30)
[2020-04-26] MEDS ORDERED: ATROPINE SULFATE 0.1 MG/ML 10ML SYR IV PRN (10:30)
[2020-04-26] MEDS ORDERED: ONDANSETRON INJ 2 MG/ML 2 ML VIAL IV PRN (10:30)
[2020-04-26] MEDS ORDERED: HYDROmorphone INJ 2 MG/ML SYR/VIAL IV PRN (10:30)
[2020-04-26] MEDS ORDERED: ePHEDrine sulfate 50 MG/ML SYR ONE (12:15)
[2020-04-26] MEDS ORDERED: VASOPRESSIN 20 UNIT/ML VIAL ONE (12:57)
[2020-04-26] MEDS ORDERED: ALBUMIN HUMAN 5% 12.5 GM/250 ML VIAL IV ONE (12:58)
[2020-04-26] MEDS ORDERED: SODIUM CHLORIDE 0.9% INJ 10 ML VIAL ONE (12:58)
[2020-04-26] MEDS ORDERED: SURGICEL ABSORB HEMOSTAT 2IN X 14IN TOP ONE (15:46)
[2020-04-26] MEDS ORDERED: FLOSEAL HEMOSTATIC MATRIX 10ML TOP ONE (15:46)
[2020-04-26] MEDS ORDERED: TISSEEL FIBRIN SEALANT 10ML TOP ONE (15:47)
--- NOTE | 2020-04-26 16:06 | Operative Report ---
PG Post Operative Report Pre & Post Diagnosis Operation Date: 04/26/20 08:30 Pre-Op Diagnosis: Enlarged Prostate, Hematuria Gross, Elevated PSA Post-Op Diagnosis: Enlarged Prostate, Hematuria Gross, Elevated PSA I identified the patient and participated in the time-out.: Yes Procedure Operation Date: 04/26/20 08:30 Actual Procedures p Robotic Assisted Laparoscopic Simple Prostatectomy, Right Pelvic Lymph Node Dissection - Prasanna Floyd, Surgeon Prasanna Floyd, II, DO Merchandise Processor Pati REYES Estimated Blood Loss 300 Findings Consistent with Post-Op Diagnosis Massive Prostate with large dilated bladder and right sided enlarged lymph nodes. Specimens Prostate Adenoma Right Pelvic Lymph Nodes. Drains 22 Fr 75 cc Arellano catheter. 10 Fr Flat Drain x 2 Anesthesia Type General Complications none Disposition Disposition: Recovery Room Indications Patient with severe obstruction due to massive prostate enlargement. Risk and benefits were discussed at length. Patient elected to undergo robotic assisted laparoscopic Radical Prostatectomy. Description of Procedure The patient was brought to the operative suite and placed under general endotracheal intubation anesthesia in the supine position. The patient was transferred to the dorsal lithotomy position. At this point, the patient prepped and draped in the usual sterile fashion and a timeout was completed. Preoperative antibiotics of Ancef 2 grams had been given. ALEXANDER's and SCD's were placed on the patient's lower extremities. A catheter was placed using sterile technique. With the time out completed the patient was placed into Trendelenburg and the skin at the umbilicus was anesthetized. A small incision was made superior to the umbilicus. A Varess Needle was placed and confirmed to be in the abdominal cavity. Water drop test passed. The Abdominal cavity was insufflated to 15 mmHG. The camera port was then placed. A laparoscopic camera was placed into the port and the abdominal cavity inspected. No concerning features were noted. At this point, the skin was marked for port placement and 8mm working ports were placed. The skin was anesthetized down to fascia and an approx 1cm incision was made to place the 3 x 8mm ports. A 15mm and 5 mm geriatric nurse assistant ports were also placed in similar fashion under direct visualization. The patient was transferred into steep Trendelenburg position and the legs lowered. The robot was positioned and docked. The camera was placed and all trocars were positioned under direct visualization. Pati REYES was integral in port placement, camera utilization, and docking procedure. She remained in sterile attire and then proceeded to assist the remainder of the case. At this point, I transitioned to the robotic console. At this point, the sigmoid colon was mobilized superiorly and the pelvis assessed. Adhesions were freed to allow mobilization. The medial umbilical ligaments were then identified and the peritoneum directly lateral on the right was opened. The tissues were bluntly dissected to free the bladder's lateral attachments. This was taken down to the pubic bone and exposed the endopelvic fascia. The medial ligament was cut and the bladder dropped on the right. The tissues was dissected anterior to the prostate. The right enlarged pelvic lymph tissue was identified in relation to the iliac vessels. Distal dissection was taken to the Node of Carri. Inferiorly the obtorator vessels and nerve were identified. Lymphatic tissue within the surround fat tissue was dissected. This packet of tissues were sent for pathologic analysis and lymph node assessment for frozen. No malignancy was discovered after assessment. A surgicel sheet was placed over the vessels. The endopelvic fascia on the right side was then opened. The Dorsal venous complex of the prostate was dissected and assessed. A 2-0 suture was used to ligate the vessels. A suspension stitch was used and clipped. The arellano was manipulated to better visual the bladder neck. The bladder was opened from anterior to posterior. The edges were bolstered open with 2-0 Vicryl sutures and the bladder neck exposed. The UO on each side was identified. Starting at the bladder neck posteriorly, dissection was taken using electrocautery. The bladder neck was opened and dissected from the prostate. The large median lobe and lateral lobe adenomas were dissected free. A 2-0 PDS suture was used to assist with retraction. The UO were identified and monito red throughout the procedure. The adenomas and lobes were taken out individually. Due to the massive size the dissection was slow and meticulous but little bleeding was appreciated for the majority of the resection. The distal prostate was dissected to and the arellano was used to help guide dissection. Along the lateral distal portion of dissection, some smaller vessels were ligated. The adenoma was debulked and a large resection bed created. All noteable prostate adenoma was able to be removed. The entire dissection bed was inspected.Hemostatic agent was placed in the region. No areas of injury or bleeding was noted. A 3-0 V-lock suture was used x 3 to approximate the lateral edges and posterior edges of the bladder with the prostatic capsule fibers and distal prostate. Anteriorly an additional 3-0 V-lock was used and closed and reduced the size of the capsule. The arellano catheter was removed and the new 24 Fr 75 cc catheter was placed. The balloon was filled. The UO were noted to be draining during the entire case. No major bleeding or other areas of concern. The bladder mucosa was then closed using running 2-0 V-lock suture. This was closed in multiple layers. A running 2-0 Vicryl was used to close an additional layer. A 3-0 V-lock was used to further close the tissues anterior to the bladder. During this period, the surgical team was concern that the counts for needles were off and a miss count was noted. The concern was that an additional suture needle was added to the count but not added to the field. The count was found to be off. Immediately at the end of the procedure an x ray was completed and no foreign body was discovered. Care was taken to examine the pelvis and abdominal tissues. Hemostatic agent was placed on dorsal vein region as well as over the right side on the exposed vessels. The entire dissection space was inspected one final time. No bleeding or injuries or areas of concern were noted. No tumor or other concerning features were noted. The prostate masses were placed in an endocatch bag. At this point, the robot was undocked and moved away from the patient. The patient was taken out of Trendelenberg. The port sites were all assessed laparoscopically. A suprapubic opening was made and a 10 Fr Flat drain was placed. The endoscopic bag was moved into the midline port. The 15mm port was used to place an additional 10 Fr Drain. These were situated into the pelvis. The other ports were assessed and no issues observed. The umbilical incision was opened further exposing fascia which was then opened in order to removed the prostate in the bag. The prostate was removed. A running PDS suture was used to close fascia. A 2-0 Vicryl was used to close subcutaneous fat. The skin at each site was closed with surgical margret. The area was cleaned and bandages placed on each incision. The patient was cleaned and bandaged, aroused from anesthesia, and transferred to the pacu in stable condition having tolerated the procedure well with no complications. I was present and participated in all aspects of the procedure. Pati REYES was critical in the portions as mentioned above. As stated above the count was found to be off during the case due likely to a tallying error. Post procedure xray found no foreign body concerning for a suture needle. Will plan to observe postoperatively and monitor. Arellano to be remain in place until followup. I attest to the content of the Intraoperative Record and any orders documented therein. Any exceptions are noted below.
--- NOTE | 2020-04-26 16:43 | XRay Report ---
KUB CLINICAL HISTORY: Incorrect surgical implant count. FINDINGS: 3 AP, portable, supine abdominal radiographs are correlated with abdominal CT dated 04/16/20 20. There is a nonobstructed abdominal bowel gas pattern. 2 surgical drains project over the pelvis. An additional curvilinear density projects over the left hip, and there is an approximately 10.5 cm r ound density projecting over the left pelvis. The skeletal structures are osteopenic. The bony struct ures are grossly intact. IMPRESSION: 1. Two surgical drains project over the pelvis. 2. An indeterminant 10.5 cm round radiodense structure projects over the left pelvis, and a curviline ar radiodense structure projects over the left hip. Clinical correlation will be required. Electronically signed by: Victorino Sanders M.D. 04/26/2020 4:42 PM
[2020-04-26 17:13] LABS: Basophils # (auto) 0.02 K/uL (0-0.2); Basophils % (auto) 0.1 %; Eosinophils # (auto) 0.01 K/uL (0-0.5); Eosinophils % (auto) 0.1 %; Hematocrit (blood only) 30.4 % (42-52); Hemoglobin 10.5 g/dL (14.0-18.0); Immature Granulocytes # (auto) 0.01 K/uL (0.00-0.02); Immature Granulocytes % (auto) 0.1 %; Lymphocytes # (auto) 1.43 K/uL (1.2-3.4); Lymphocytes % (auto) 10.4 %; Mean Corpuscular Hemoglobin 31.1 pg (25-34); Mean Corpuscular Volume 89.9 fL (80-100); Mean Platelet Volume 10.5 fL (7.4-10.4); Monocytes # (auto) 0.27 K/uL (0.11-0.59); Neutrophils # (auto) 12.04 K/uL (1.4-6.5); Neutrophils % (auto) 87.3 %; Platelet Count 147 K/uL (130-400); RDW Coefficient of Variation 13.5 % (11.5-14.5); RDW Standard Deviation 43.9 fL (36.4-46.3); Red Blood Count 3.38 M/uL (4.7-6.1); White Blood Count 13.78 K/uL (4.8-10.8)
[2020-04-26 17:21] LABS: Mean Corpuscular Hgb Conc 34.5 g/dL (32-36)
[2020-04-26] MEDS ORDERED: METOPROLOL TARTRATE 1 MG/ML VIAL IV STA (17:29)
[2020-04-26 17:31] LABS: BUN Creatinine Ratio 8.6 (10-20); Calcium 7.9 mg/dl (8.5-10.1); Creatinine Clr Calc Pharmacy 54.3 ml/min; Est GFR (African American) 76.5; Potassium 4.7 mmol/L (3.5-5.1)
[2020-04-26] MEDS ORDERED: METOPROLOL TARTRATE 1 MG/ML VIAL IV ONE (17:32)
--- NOTE | 2020-04-26 17:42 | Anesthesiology Progress Note ---
Date of Service April 26, 2020 Anesthesia Post Procedure Vital Signs Vital Signs: Temp Pulse Pulse Pulse Resp BP BP 04/26/20 17:35 84 13 131/76 04/26/20 17:34 105 H 131/76 04/26/20 17:25 36.5 C 105 H 14 119/77 04/26/20 17:15 110 H 16 127/80 04/26/20 17:05 104 H 18 123/79 04/26/20 16:55 106 H 12 119/72 04/26/20 16:45 103 H 12 111/70 04/26/20 16:34 36.4 C L 88 12 137/65 04/26/20 07:07 37.1 C 89 18 135/68 Pulse Ox 04/26/20 17:35 98 04/26/20 17:34 04/26/20 17:25 98 04/26/20 17:15 98 04/26/20 17:05 100 04/26/20 16:55 98 04/26/20 16:45 98 04/26/20 16:34 100 04/26/20 07:07 96 Transfer of Care Handoff Completed per policy Notes Mental Status: alert / awake / arousable Patient Amnestic to Procedure: Yes Nausea / Vomiting: adequately controlled Pain: adequately controlled Airway Patency, RR, SpO2: stable & adequate BP & HR: stable & adequate Hydration State: stable & adequate Anesthetic Complications: no major complications apparent and Pt Satisfied with anesthetic care Notes: The patient is awake and comfortable. His vital signs are stable.
[2020-04-26] MEDS ORDERED: oxyCODONE HCL IR 5 MG TAB (IMMEDIATE RELEASE) PO PRN ×2 (18:50)
[2020-04-26] MEDS ORDERED: MoRPHine SULFATE 2 MG/ML CARP IV PRN ×2 (18:50→19:07)
[2020-04-26] MEDS ORDERED: SODIUM CHLORIDE 0.9% 1000ML 1,000 ML IV ONE (20:13)
[2020-04-26] MEDS: LACTATED RINGER'S 1,000 ML IV SCH ×2 (20:16→22:38)
[2020-04-27] MEDS: ceFAZolin 2000MG 2,000 MG/15 ML SYR IV SCH (03:12)
[2020-04-27 05:53] LABS: Basophils # (auto) 0.01 K/uL (0-0.2); Basophils % (auto) 0.1 %; Hematocrit (blood only) 28.3 % (42-52); Hemoglobin 9.3 g/dL (14.0-18.0); Immature Granulocytes # (auto) 0.02 K/uL (0.00-0.02); Immature Granulocytes % (auto) 0.2 %; Lymphocytes # (auto) 0.84 K/uL (1.2-3.4); Lymphocytes % (auto) 8.8 %; Mean Corpuscular Hemoglobin 29.8 pg (25-34); Mean Corpuscular Hgb Conc 32.9 g/dL (32-36); Mean Corpuscular Volume 90.7 fL (80-100); Mean Platelet Volume 10.1 fL (7.4-10.4); Monocytes # (auto) 0.88 K/uL (0.11-0.59); Monocytes % (auto) 9.2 %; Neutrophils % (auto) 81.7 %; Platelet Count 138 K/uL (130-400); RDW Coefficient of Variation 13.8 % (11.5-14.5); RDW Standard Deviation 45.6 fL (36.4-46.3); Red Blood Count 3.12 M/uL (4.7-6.1); White Blood Count 9.55 K/uL (4.8-10.8)
[2020-04-27 06:18] LABS: BUN Creatinine Ratio 10.8 (10-20); Calcium 7.8 mg/dl (8.5-10.1); Creatinine Clr Calc Pharmacy 54.8 ml/min; Est GFR (African American) 77.3; Est GFR (Non-African American) 66.7; Potassium 4.2 mmol/L (3.5-5.1)
[2020-04-27] MEDS: MULTIVITAMIN TAB PO SCH (08:50)
[2020-04-27] MEDS: PARoxetine HCL 20 MG TAB PO SCH (08:51)
[2020-04-27] MEDS: HEPARIN SOD 5,000 UNIT/0.5 ML VIAL SQ SCH ×2 (08:51→19:49)
[2020-04-27] MEDS: LACTATED RINGER'S 1,000 ML IV SCH ×2 (08:52→17:17)
[2020-04-27] MEDS ORDERED: FINASTERIDE 5 MG TAB PO SCH (09:00)
[2020-04-27] MEDS ORDERED: TAMSULOSIN HCL 0.4 MG CAP PO SCH (09:00)
--- NOTE | 2020-04-27 09:15 | Urology Progress Note ---
Date of Service April 27, 2020 Assessment & Plan (1) Enlarged prostate: 74 yo M POD #1 s/p simple prostatectomy with Dr. Floyd. - Doing well, progressing as expected - Afebrile, labs reviewed - hgb 9.3 today - Tolerating clear liquid diet, will advance diet as tolerated - Continue OOB ambulation, encourage IS - Maintain Jones catheter - patent and draining well this morning - Incisions appropriate - Anticipate discharge to home tomorrow with Jones catheter if he continues to progress Admission and Anticipated Discharge Date Admission Date: April 26, 2020 Subjective 74 yo M POD #1 s/p simple prostatectomy with Dr. Floyd. Pt seen and examined at bedside this AM. Awake, alert, and sitting up in bed eating breakfast. Reports feeling some fatigue and weakness, otherwise no complaints. Some mild incisional pain rated 2/10 at present. Tolerating clear liquid diet, no nausea or vomiting. No abdominal pain. No flatus or BM yet. Ambulated in hallway this AM. Jones catheter required manual irrigation x [address] Floyd last night. Jones catheter intact, patent and draining pink tinged urine without clots. No dysuria or hematuria. Drain output: Right PIPE - 40 mL, lower abdominal - 80 mL. No additional concerns today. Chart review: Afebrile. Creatinine 1.10, WBC 9.55, Hgb 9.3. Review of Systems Constitutional: as per Subjective / HPI Gastrointestinal: as per Subjective / HPI Genitourinary: + as per Subjective / HPI Physical Exam Constitutional: well developed and well nourished; no acute distress and not ill appearing Respiratory: normal respiratory effort and able to speak in complete sentences; no respiratory distress and no labored breathing Cardiovascular: Extremities: no calf tenderness and no pedal edema Gastrointestinal (Abdomen): Inspection/Auscultation: abdomen normal to inspection; abdomen not distended Percussion/Palpation: abdomen soft; abdomen nontender and no guarding Musculoskeletal: Head/Neck/Chest: normocephalic and head atraumatic Extremities: extremities normal to inspection Skin: Surgical incisions: [place] intact and well approximated, no erythema, warmth or drainage, bandages C/D/I. JPs drains intact with minimal serosang uinous output, right PIPE drain with some drainage noted on dressing. Neurologic: moves all extremities and awake Psychiatric: A+Ox3, euthymic affect Genitourinary: Jones catheter intact, patent, draining pink tinged urine without clots Results & Data ([facility]) Vital Signs (Past 12 Hours) Vital Signs Temp Pulse Resp BP Pulse Ox 04/27/20 08:23 36.7 C 105 H 21 119/74 97 04/27/20 02:45 36.7 C 98 H 19 109/67 100 04/26/20 23:50 36.6 C 101 H 20 113/65 98 04/26/20 21:28 36.7 C 93 H 16 114/69 98 PG Care Time/CCT Total # of Minutes Spent Total Time Spent with Patient: Total time spent is greater than 50% in coordination of care (as documented) at patient's floor/unit and/or counseling patient: Coding Level of Care Code 73463 Subseq Hosp Care Lvl 2 Diagnoses Enlarged prostate N40.0
[2020-04-27] MEDS ORDERED: PIPERACILL/TAZOBAC CONSULT ACTIVE PRN (16:13)
[2020-04-27] MEDS ORDERED: PIPERACILLIN/TAZOBACTAM 3.375 GM in DEXTROSE 5% 100 ML IV ONE (16:30)
--- NOTE | 2020-04-27 17:07 | XRay Report ---
XR chest 2V PA/lateral CLINICAL HISTORY: Cough, Fever COMPARISON STUDY: No previous studies for comparison. FINDINGS: The heart is normal in size. There is no failure. There is no lobar consolidation. There ar e wispy left basilar opacities, atelectatic versus infectious/inflammatory.[ IMPRESSION: Minimal wispy left basilar opacities, atelectatic versus infectious/inflammatory. ACT 112: Negative or not required by law. Electronically signed by: Jeffery Gipson M.D. 04/27/2020 5:06 PM
[2020-04-27] MEDS: ONDANSETRON INJ 2 MG/ML 2 ML VIAL IV PRN (19:48)
[2020-04-27 20:23] LABS: Basophils # (auto) 0.01 K/uL (0-0.2); Basophils % (auto) 0.1 %; Hematocrit (blood only) 26.4 % (42-52); Hemoglobin 8.8 g/dL (14.0-18.0); Immature Granulocytes # (auto) 0.03 K/uL (0.00-0.02); Immature Granulocytes % (auto) 0.2 %; Lymphocytes # (auto) 0.55 K/uL (1.2-3.4); Lymphocytes % (auto) 4.4 %; Mean Corpuscular Hemoglobin 30.3 pg (25-34); Mean Corpuscular Hgb Conc 33.3 g/dL (32-36); Mean Platelet Volume 10.2 fL (7.4-10.4); Monocytes # (auto) 0.89 K/uL (0.11-0.59); Monocytes % (auto) 7.2 %; Neutrophils # (auto) 10.95 K/uL (1.4-6.5); Neutrophils % (auto) 88.1 %; Platelet Count 147 K/uL (130-400); RDW Coefficient of Variation 13.7 % (11.5-14.5); RDW Standard Deviation 45.6 fL (36.4-46.3); White Blood Count 12.43 K/uL (4.8-10.8)
[2020-04-27 20:40] LABS: Albumin Level 2.8 gm/dl (3.4-5.0); BUN Creatinine Ratio 9.5 (10-20); Calcium 7.8 mg/dl (8.5-10.1); Creatinine Clr Calc Pharmacy 36.7 ml/min; Est GFR (African American) 47.7; Est GFR (Non-African American) 41.2; Potassium 4.1 mmol/L (3.5-5.1)
[2020-04-27 20:43] LABS: Bilirubin,Total 0.4 mg/dl (0.2-1); Globulin 2.9 gm/dl (2.5-4.0); Total Protein 5.7 gm/dl (6.4-8.2)
--- NOTE | 2020-04-27 21:29 | Hospitalist Consultation ---
Date of Consultation April 27, 2020 Assessment & Plan (1) Tachycardia: Patient had a prostaectomy. Was called to see patient near shift change. Due to HR being 130 will transfer to med tele to assess for atrial Will order blood work, cbc, lactic acid, and BMP. will order EKG. If he shows anemia, depending on the severity he may need transfusion If he is in acute renal failure, will need to be placed on fluids. May even be a. fib however his HR appears regular. will sign out to evening resident. (2) Weight loss: appears controlled. (3) Mood disorder: will resume home meds. (4) Enlarged prostate: sp prostatectomy. defer dvt proph. and pain management to primary team History of Present Illness Reason for Consultation: Sinus tachycardia Attending Physician: Prasanna Floyd, II, DO History of Present Illness 74yo male with history of elevated PSA and BPH for several decades is here in the hopsital for a robotic prostatectomy. It appears though that after surgery patient started to become tachycardic and a consult was called. I went to the room to assess the patient and patient reports feeling well, except for abdominal pain that is generalized but mild. He attreibutes this to his surgery. He denies any SOB, nausea, vomiting, diarrhea. Patient states he was diagnosed with BPH in the . He takes dual-BPH medications. He has had numerous prostate biopsies dating back to the late . Most recent biopsy was in 2014. All biopsies have been negative for prostate cancer. He recalls that his most recent PSAs have ranged from 20s to 40s. Allergies Allergy/AdvReac Type Severity Reaction Status Date / Time No Known Allergies Allergy Verified 04/12/20 14:33 Home Medications Medication Instructions Recorded Confirmed Type multivitamin 1 tab PO DAILY 02/13/20 04/26/20 History finasteride 5 mg PO DAILY 30 Days #30 tab 02/15/20 04/26/20 Rx paroxetine HCl 20 mg PO DAILY 30 Days #30 tab 02/15/20 04/26/20 Rx tamsulosin 0.4 mg PO DAILY 30 Days #30 cap 02/15/20 04/26/20 Rx Patient History Medical History Anxiety Bladder stone BPH (benign prostatic hyperplasia) Elevated PSA History of kidney stones Hyperlipidemia Lymph node enlargement Surgical History H/O lithotripsy H/O prostate biopsy History of bunionectomy R/L History of colonoscopy [place] teeth removed Family History Father , age 67 Prostate cancer Lung cancer Colorectal cancer Brother Prostate cancer Mother Family history of diabetes mellitus Other No family history of adverse response to anesthesia Social History Smoking Status: Former smoker Smoking End Date: Quit 50 years ago; Second Hand Exposure: Yes; Do You Dip or Chew Tobacco: No; Tobacco Cessation Education Requested by Patient: No Hx Alcohol Use: Yes Alcohol type: beer, wine and hard liquor Alcohol Intake Frequency: 2-4 x/Month Hx Substance Use: No Preferred Language: Congolese Communication Ability: Effective Body Component Engineer Required: No Beliefs That Will Affect Care: None marital status: marital status details: 2nd marriage Current Living Situation: Spouse Current Living Situation Comment: lives in [place]; just recently moved from [place] current occupational status: retired 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 How many Children do You have: 5 How many Children do You have Comment: 1 biological child with current ; 1 biological child with first ; 3 step-children Feels Safe at Home: Yes Safety Concerns: Feels Safe At This Time Assistive Devices: Walker Review of Systems Constitutional: no fever, no sweats and no malaise Eyes: no diplopia and no decreased night vision Ear, Nose, Mouth, Throat: no ear pain, no ear trauma and no tinnitus Respiratory: no change in sputum and no hemoptysis Cardiovascular: no chest pain and no chest pain with activity Gastrointestinal: + abdominal pain and + bloating; no nausea and no vomiting Genitourinary: no urinary frequency and no post-void dribbling Musculoskeletal: no back pain and no radicular pain Integumentary: no rash and no non-healing lesions Neurologic: no falls, no paralysis and no numbness Psychiatric: no hopelessness and no change in appetite Endocrine: no polydipsia Hematologic / Lymphatic: no coagulopathy Physical Exam Constitutional: WD/WN, vitals as above well developed and well nourished Eyes: PERRL, conjunctivae normal, anicteric sclerae ENMT: external ear and nose normal, oropharynx normal Neck: trachea midline, no thyromegaly Respiratory: bibasilar rales, Cardiovascular: Rate/Rhythm: + tachycardic Heart Sounds: normal S1 and normal S2 Vessels: no JVD Gastrointestinal (Abdomen): normal bowel sounds, soft, nontender, no hepatosplenomegaly Musculoskeletal: no cyanosis or clubbing, extremities motor strength 5/5 Skin: no rashes, warm and dry Neurologic: PERRL, EOMI, accommodation nl, no face palsy, no dysarthria Psychiatric: A+Ox3, euthymic affect Results & Data Results & Data ([facility]) Vital Signs (Past 12 Hours) Vital Signs Temp Pulse Resp BP Pulse Ox 04/27/20 19:35 37.2 C 127 H 18 112/65 93 04/27/20 16:10 36.8 C 04/27/20 15:47 38.0 C H 110 H 17 106/66 94 PG Care Time/CCT Total # of Minutes Spent Total Time Spent with Patient: Total time spent is greater than 50% in coordination of care (as documented) at patient's floor/unit and/or counseling patient: Coding Level of Care Code 25884 Inpt Consult Level 5 Diagnoses Tachycardia R00.0 Weight loss R63.4 Mood disorder F39 Enlarged prostate N40.0 Time Spent (min) 65
[2020-04-27] MEDS ORDERED: SODIUM CHLORIDE 0.9% 1000ML 250 ML IV ONE (22:16)
[2020-04-27] MEDS: PIPERACILLIN/TAZOBACTAM 3.375 GM in DEXTROSE 5% 100 ML IV SCH (23:21)
[2020-04-28] MEDS: LACTATED RINGER'S 1,000 ML IV SCH ×2 (04:29→21:29)
[2020-04-28] MEDS: PIPERACILLIN/TAZOBACTAM 3.375 GM in DEXTROSE 5% 100 ML IV SCH ×3 (05:47→23:23)
[2020-04-28 06:29] LABS: Basophils # (auto) 0.01 K/uL (0-0.2); Basophils % (auto) 0.1 %; Hematocrit (blood only) 25.1 % (42-52); Hemoglobin 8.5 g/dL (14.0-18.0); Immature Granulocytes # (auto) 0.04 K/uL (0.00-0.02); Immature Granulocytes % (auto) 0.3 %; Lymphocytes # (auto) 0.88 K/uL (1.2-3.4); Lymphocytes % (auto) 5.6 %; Mean Corpuscular Hemoglobin 30.6 pg (25-34); Mean Corpuscular Hgb Conc 33.9 g/dL (32-36); Mean Corpuscular Volume 90.3 fL (80-100); Mean Platelet Volume 10.5 fL (7.4-10.4); Monocytes % (auto) 8.3 %; Neutrophils # (auto) 13.52 K/uL (1.4-6.5); Neutrophils % (auto) 85.7 %; Platelet Count 143 K/uL (130-400); RDW Coefficient of Variation 13.9 % (11.5-14.5); RDW Standard Deviation 45.9 fL (36.4-46.3); Red Blood Count 2.78 M/uL (4.7-6.1); White Blood Count 15.75 K/uL (4.8-10.8)
[2020-04-28 07:07] LABS: BUN Creatinine Ratio 10.2 (10-20); Calcium 8.1 mg/dl (8.5-10.1); Creatinine Clr Calc Pharmacy 38.6 ml/min; Est GFR (African American) 50.7; Est GFR (Non-African American) 43.7
[2020-04-28] MEDS: HEPARIN SOD 5,000 UNIT/0.5 ML VIAL SQ SCH ×2 (09:06→21:29)
[2020-04-28] MEDS: MULTIVITAMIN TAB PO SCH (09:06)
[2020-04-28] MEDS: PARoxetine HCL 20 MG TAB PO SCH (09:06)
--- NOTE | 2020-04-28 09:43 | Urology Progress Note ---
Date of Service April 28, 2020 Assessment & Plan (1) Enlarged prostate: 74 yo M POD #2 s/p simple prostatectomy with Dr. Floyd. Low grade fever with atelect, cough. Increased ABx. Transfered to tele for monitoring tachy -Attempt to replaced catheter this AM. Hydrate. Continue abx. Encourage IS. Warned of possible PNa development. Increase activity. Ambulate. Continue supportive care. Will increase patient's bowel regimen. Monitor for development of ileus. Procedure note: Difficult catheter placement. Patient was prepped and draped in the standard fashion. The 22 British three-way 75 cc balloon catheter had malfunctioned and failed with the balloon deflating and had been found in the patient's bed. Local lidocaine jelly was placed in the patient's urethra. A 20 British coud catheter was placed and advanced. Advanced easily and had good return of urine. Urine appeared clear with light pink color and no sediment. The Jones balloon was elevated 1st-30 cc and an additional 20 cc was placed into the catheter. This was then gently seated into the bladder. A large amount of drainage was appreciated with a total of approximately 200 cc drained initially. The catheter was then manipulated the balloon was lowered back down to 30 cc. And was seated with improve drainage. The patient's catheter was then secured. Set to gravity drainage. The patient was cleaned. The patient's PIPE drains had become also somewhat loose likely due to manipulation. A 2-0 silk tie was used to resecure the tubes to the anchoring stitches. This was completed for both the right lateral and the suprapubic PIPE drain. Patient tolerated procedure well without major complications or issues. Patient is currently draining clear yellow with occasional light pink urine. PIPE drainage did appear to have slowed with improved catheter drainage. Admission and Anticipated Discharge Date Admission Date: April 26, 2020 Subjective Postop from urologic surgery. Patient had developed mild fever with cough. Found to have atelectasis and tachycardia. Moved this AM to tele bed. In transition catheter was dislodged, failed, and fell out. Pain has been tolerating well, but is having some increasing pain and discomfort with catheter out. Incisions have been mild sore. Having some abdominal distension/gas pains. Had tolerated catheter. Has not had severe pain or uncontrollable pain. Patient has been ambulating. Has not had bowel movement or major change. No new nausea or vomiting. Had tolerated anesthesia without major problems Tolerated liquid diet postoperatively. Review of Systems Review of Systems: All systems reviewed & are unremarkable except as noted in HPI & below Physical Exam Physical Exam: General: Alert in no acute distress. HEENT: Normocephalic Atraumatic. Inspection normal. Cranial Nerves 2-12 Grossly intact. Normal inspection of face. Normal inspection of neck. Psychologic: Normal affect. Respiratory: Nonlabored. No use of accessory muscles. No tachypnea or dyspnea. Cardiovascular: No tachycardia Skin: [place] and Dry. No rashes or visible lesions. Extremities/Lymphatics: No edema Abdomen: Appropriately tender. Mild distended. No rebound or guarding. Wound: Clean, dry, covered. PIPE in place with increased suprapubic drainage Results & Data ([facility]) Vital Signs (Past 12 Hours) Vital Signs Temp Pulse Pulse Pulse Resp BP BP 04/28/20 07:34 37.0 C 87 132/68 04/28/20 03:55 36.5 C 122 H 18 128/63 04/28/20 00:09 113 H 04/27/20 23:24 37 C 112 H 18 135/65 04/27/20 23:13 110 H Pulse Ox 04/28/20 07:34 91 04/28/20 03:55 92 04/28/20 00:09 04/27/20 23:24 93 04/27/20 23:13 PG Care Time/CCT Total # of Minutes Spent Total Time Spent with Patient: Total time spent is greater than 50% in coordination of care (as documented) at patient's floor/unit and/or counseling patient: Coding Level of Care Code 22307 Subseq Hosp Care Lvl 3 Diagnoses Enlarged prostate N40.0
[2020-04-28] MEDS ORDERED: bisacodyL 10 MG SUPP PR PRN (10:29)
[2020-04-28] MEDS ORDERED: POLYETHYLENE (MIRALAX) 17 GM PACK PO PRN (10:29)
[2020-04-28] MEDS ORDERED: DOCUSATE SODIUM 100 MG CAP PO STA (10:31)
--- NOTE | 2020-04-28 10:44 | Electrocardiogram Report ---
Test Reason : Blood Pressure : / mmHG Vent. Rate : 125 BPM Atrial Rate : 125 BPM P-R Int : 148 ms QRS Dur : 088 ms QT Int : 300 ms P-R-T Axes : 048 019 054 degrees QTc Int : 433 ms Sinus tachycardia Nonspecific ST and T wave abnormality Abnormal ECG When compared with ECG of 16-APR-2020 08:55, Premature ventricular complexes are no longer Present Vent. rate has increased BY 63 BPM Nonspecific T wave abnormality now evident in Lateral leads Confirmed by Victoriano Girard ([id number]) on 04/28/2020 10:44:31 AM Referred By: Prasanna Floyd Confirmed By:Escobar Girard
[2020-04-28] MEDS ORDERED: LACTATED RINGER'S 1,000 ML IV ONE ×2 (13:28→15:03)
--- NOTE | 2020-04-28 14:30 | XRay Report ---
SINGLE VIEW CHEST CLINICAL HISTORY: Tachycardia. FINDINGS: An AP, portable, upright chest radiograph is compared to study dated 04/27/2020. The examin ation is degraded by portable technique and patient rotation. The heart is mildly enlarged. There is mild pulmonary vascular congestion. Airspace opacities are again seen at the left lung base. There i s a trace left pleural effusion. No pneumothorax is seen. The skeletal structures are osteopenic. The bony thorax is grossly intact. IMPRESSION: 1. Mild cardiac enlargement with prominence of the pulmonary vasculature. Correlate clinically for ev idence of mild congestive failure. 2. Airspace opacities are again seen at the left lung base. Correlate clinically for evidence of a mi ld infectious/inflammatory pneumonitis. 3. Trace left pleural effusion. ACT 112: Negative or not required by law. Electronically signed by: Victorino Sanders M.D. 04/28/2020 2:29 PM
[2020-04-28 15:27] LABS: Hematocrit (blood only) 25.7 % (42-52); Hemoglobin 8.8 g/dL (14.0-18.0)
[2020-04-28 15:33] LABS: HCO3 VBG 28 mmol/L; PCO2 VBG 51 mmHg (38-50); PO2 VBG 26 mmHg; pH VBG 7.36 (7.36-7.41)
[2020-04-28 15:35] LABS: Oxygen Saturation VBG < 60.0 %
[2020-04-28 15:47] LABS: BUN Creatinine Ratio 12.8 (10-20); Calcium 8.4 mg/dl (8.5-10.1); Creatinine Clr Calc Pharmacy 51.1 ml/min; Est GFR (Non-African American) 61.3; Potassium 3.9 mmol/L (3.5-5.1)
--- NOTE | 2020-04-28 17:54 | XRay Report ---
KUB CLINICAL HISTORY: Abdominal distention. FINDINGS: 2 AP, portable, supine abdominal radiographs are compared to study dated 04/26/2020 and cor related with abdominal CT dated 04/16/2020. There is gaseous distention of the small bowel loops and c olon. Small bowel loops measure up to 3.6 cm in diameter. No evidence of intraperitoneal free air is seen on these supine views. Skin clips project over the abdomen. There are 2 surgical drains projecti ng over the pelvis. The skeletal structures are osteopenic. The bony structures are grossly intact. A irspace opacities are seen at the left lung base. IMPRESSION: 1. There is gaseous distention of the small bowel and colon. The appearance favors ileus given the hi story of recent surgery. 2. Two surgical drains project over the pelvis. Electronically signed by: Victorino Sanders M.D. 04/28/2020 5:53 PM
[2020-04-28] MEDS ORDERED: OPTIRAY 320 125ml IV ONE (18:20)
--- NOTE | 2020-04-28 18:43 | CT Scan Report ---
CT ANGIOGRAM OF THE CHEST CLINICAL HISTORY: Cough. COMPARISON STUDY: Chest x-ray dated 04/28/2020. TECHNIQUE: Following the IV administration of 119 cc of Optiray 320, CT angiogram of the chest was pe rformed from the upper abdomen to the thoracic inlet utilizing the pulmonary embolus protocol. Images are reviewed in the axial, sagittal, and coronal planes. 3-D MIPS images are created and assessed. I V contrast was administered without complication. A dose lowering technique was utilized adhering to the principles of ALARA. The examination is modestly degraded by motion artifact. CT DOSE: 250.89 mGy.cm FINDINGS: Thyroid: Imaged portions of the thyroid gland are normal in size and attenuation. Thoracic aorta: The thoracic aorta is normal in caliber and demonstrates standard 3-vessel arch anato my. No dissection is seen. Pulmonary vasculature: The pulmonary trunk is normal in caliber. There are no filling defects identif ied in main, lobar, or segmental pulmonary branches to suggest pulmonary embolus. Heart: The heart is enlarged noting trace pericardial effusion. The coronary arteries are densely ciro cified. Lungs and pleural spaces: Evaluation of the lung parenchyma is degraded by motion artifact. There are small pleural effusions with dependent consolidation. The trachea and central airways are clear. A c alcified granuloma is noted in the right upper lobe. Mediastinum: There are scattered subcentimeter mediastinal lymph nodes. Michelle: Clear. Axillae: There is no axillary lymphadenopathy. Upper abdomen: Tiny foci of intraperitoneal free air are seen below the diaphragm. There is a small h iatal hernia. Wall thickening suggested throughout the esophagus. Skeletal structures: The skeletal structures are osteopenic. No lytic or blastic bony lesions are see n. IMPRESSION: 1. There is no evidence of pulmonary embolus in the main, lobar, or segmental pulmonary arteries. 2. There are small pleural effusions with dense bibasilar consolidation. The appearance is typical fo r atelectasis. Correlate clinically for evidence of superimposed pneumonia. 3. Cardiomegaly and advanced coronary artery calcification. 4. There is a small hiatal hernia and diffuse esophageal wall thickening. Correlate clinically for ev idence of esophagitis. If clinically warranted this could be further assessed with endoscopy. 5. Small foci of intraperitoneal free air are seen below the diaphragm. This is likely related to rec ent surgery and clinical correlation will be required. 6. Additional findings as above. ACT 112: Negative or not required by law. Electronically signed by: Victorino Sanders M.D. 04/28/2020 6:42 PM
[2020-04-28] MEDS ORDERED: DOCUSATE SODIUM 100 MG CAP PO SCH (21:00)
--- NOTE | 2020-04-28 23:35 | Hospitalist Progress Note ---
Date of Service April 28, 2020 Assessment & Plan (1) Tachycardia: Patient continues to show signs of sinus tachycardia. Likely multifactorial. Lactic acidosis and elevated creatinine with fluid loss can likely casue this. Patient does not appear septic: normal procal. However, will continue antibiotics for the meantime. Ordered ct chest to rule out pulmonary emobli. This was negative. Patient is on room air, do not feel atelectasis is causing his sinus tachycardia. Patient was seen multiple times thorughout the day. Orderd KUB, and this does show evidence of ileus. given possible ileus, may consider limiting diet (2) Weight loss: appears controlled. (3) Mood disorder: will resume home meds. (4) Enlarged prostate: sp prostatectomy. defer dvt proph. and pain management to primary team (5) Lactic acidosis: Patient had a lactic acidosis of 4. This improved to over 2 but still elevated this AM after receiving fluid. Patient will continue to receive more fluid. (6) Acute kidney failure: Creatinine was elevated. He is responding to fluids, will continue to monitor for now. Admission and Anticipated Discharge Date Admission Date: April 26, 2020 Subjective 74 yo male reports feeling well. He states he is not passing gas. He has been tachycardic in the 160s. Was called by nursing as his HR has sustained. He was ordered a fluid bolus and his HR improved to 120s. Review of Systems Review of Systems: All systems reviewed & are unremarkable except as noted in HPI & below Physical Exam Constitutional: WD/WN, vitals as above well developed and well nourished Eyes: PERRL, conjunctivae normal, anicteric sclerae ENMT: external ear and nose normal, oropharynx normal Neck: trachea midline, no thyromegaly Cardiovascular: Rate/Rhythm: + tachycardic Heart Sounds: normal S1 and normal S2 Vessels: no JVD Gastrointestinal (Abdomen): normal bowel sounds, soft, nontender, no hepatosplenomegaly Musculoskeletal: no cyanosis or clubbing, extremities motor strength 5/5 Skin: no rashes, warm and dry Neurologic: PERRL, EOMI, accommodation nl, no face palsy, no dysarthria Psychiatric: A+Ox3, euthymic affect Results & Data Results & Data ([facility]) Vital Signs (Past 12 Hours) Vital Signs Temp Pulse Pulse Pulse Resp BP BP 04/28/20 18:52 37.8 C H 108 H 20 135/70 04/28/20 15:56 36.9 C 120 H 20 128/74 04/28/20 15:00 114 H 04/28/20 14:42 113 H 121/75 04/28/20 13:30 145 H 108/70 04/28/20 11:44 36.7 C 92 H 20 144/68 H Pulse Ox 04/28/20 18:52 91 04/28/20 15:56 90 04/28/20 15:00 04/28/20 14:42 04/28/20 13:30 04/28/20 11:44 94 PG Care Time/CCT Total # of Minutes Spent Total Time Spent with Patient: Total time spent is greater than 50% in coordination of care (as documented) at patient's floor/unit and/or counseling patient: Prolonged Care Time Prolonged Care Time: Yes Total Prolonged Care Time: 65 9:00 to 9:25 10:20 to 10:45 15:00 to 15:10 17:30 to 17:35 18:15 to 18:25 Coding Level of Care Code 77773 Subseq Hosp Care Lvl 3 Diagnoses Tachycardia R00.0 Weight loss R63.4 Mood disorder F39 Enlarged prostate N40.0 Lactic acidosis E87.2 Acute kidney failure N17.9 Additional Codes Prolonged Care Time - Prolonged Care Time: Yes ([id number])
[2020-04-29] MEDS: PIPERACILLIN/TAZOBACTAM 3.375 GM in DEXTROSE 5% 100 ML IV SCH ×3 (05:56→21:58)
[2020-04-29] MEDS: MULTIVITAMIN TAB PO SCH (07:12)
[2020-04-29] MEDS: HEPARIN SOD 5,000 UNIT/0.5 ML VIAL SQ SCH ×2 (07:13→22:00)
[2020-04-29] MEDS: PARoxetine HCL 20 MG TAB PO SCH (07:13)
[2020-04-29] MEDS: ACETAMINOPHEN 325 MG TAB PO PRN (07:18)
[2020-04-29] MEDS: ONDANSETRON INJ 2 MG/ML 2 ML VIAL IV PRN (07:18)
[2020-04-29 07:45] LABS: Eosinophils # (auto) 0.01 K/uL (0-0.5); Eosinophils % (auto) 0.1 %; Hematocrit (blood only) 25.4 % (42-52); Hemoglobin 8.7 g/dL (14.0-18.0); Immature Granulocytes # (auto) 0.04 K/uL (0.00-0.02); Immature Granulocytes % (auto) 0.3 %; Lymphocytes # (auto) 0.93 K/uL (1.2-3.4); Lymphocytes % (auto) 6.6 %; Mean Corpuscular Hemoglobin 31.2 pg (25-34); Mean Corpuscular Hgb Conc 34.3 g/dL (32-36); Mean Platelet Volume 11.1 fL (7.4-10.4); Monocytes # (auto) 1.02 K/uL (0.11-0.59); Monocytes % (auto) 7.2 %; Neutrophils # (auto) 12.17 K/uL (1.4-6.5); Neutrophils % (auto) 85.8 %; Platelet Count 164 K/uL (130-400); RDW Coefficient of Variation 14.1 % (11.5-14.5); RDW Standard Deviation 46.9 fL (36.4-46.3); Red Blood Count 2.79 M/uL (4.7-6.1); White Blood Count 14.17 K/uL (4.8-10.8)
[2020-04-29] MEDS: LACTATED RINGER'S 1,000 ML IV SCH ×2 (07:57→18:16)
[2020-04-29 08:22] LABS: BUN Creatinine Ratio 14.9 (10-20); Calcium 8.6 mg/dl (8.5-10.1); Creatinine Clr Calc Pharmacy 71.7 ml/min; Est GFR (African American) 101.4; Est GFR (Non-African American) 87.5; Potassium 3.7 mmol/L (3.5-5.1)
--- NOTE | 2020-04-29 10:44 | XRay Report ---
KUB HISTORY: Patient presents with abdominal distention and ileus status post surgery post op ileus COMPARISON: KUB 04/28/2020, CT abdomen and pelvis 04/15/2020 FINDINGS: Numerous skin margret are noted projecting over the abdomen. 2 surgical drains are again no huyen projecting over the pelvis. [employer] gaseous distended loops of large and small bowel appear sim ilar to comparison with small bowel loops measuring up to 3.5 cm and large bowel loops measuring up t o 6.5 cm. No definite pneumatosis or pneumoperitoneum. No urolith identified. Mid lumbar dextroscolio sis. Degenerative changes of the spine, pelvis and hips. IMPRESSION: 1. Persistent gaseous distention of large and small bowel suggestive of postoperative ileus. 2. Surgical drains of the pelvis redemonstrated. ACT 112: Negative or not required by law. The above report was generated using voice recognition software. It may contain grammatical, syntax o r spelling errors. Electronically signed by: Chase Gonzalez M.D. 04/29/2020 10:43 AM
--- NOTE | 2020-04-29 12:53 | Urology Progress Note ---
Date of Service April 29, 2020 Assessment & Plan (1) Enlarged prostate: 74 yo M POD #3 s/p simple prostatectomy with Dr. Floyd. Low grade fever with atelect, cough. Patient underwent CTA with no evidence of PE. Patient's catheter had become dislodged yesterday and likely had urine leak. Replaced and now in better position. Approximately 900 cc since the morning. PIPE drainage has continued especially from the suprapubic physician. Is draining around catheter as well. Patient is on continued antibiotics. Monitor for development of ileus. We will continue with close monitoring. We will make n.p.o. with possible need for intervention with exploration and open placement of suprapubic tube. Concerned that with catheter displacement and over distention of bladder bladder closure had opened and is now dealing with considerable leak. If decreases or improves may continue to monitor. Will likely get imaging later today or tomorrow to assess further Admission and Anticipated Discharge Date Admission Date: April 26, 2020 Subjective Patient status post simple transvesical simple prostatectomy. Patient had dislodged catheter which was replaced yesterday and is draining better. Is draining was around the catheter as well. PIPE output has continued to drain significantly especially from suprapubic position. Patient's bowel function has not returned. He is having increasing bloating. May be having more of a chemical ileus. Has decreased diet slightly. Patient having shortness of breath and cough with likely atelectasis underwent CTA yesterday found no evidence of PE. Review of Systems Review of Systems: All systems reviewed & are unremarkable except as noted in HPI & below Physical Exam Physical Exam: General: Alert in no acute distress. HEENT: Normocephalic Atraumatic. Inspection normal. Cranial Nerves 2-12 Grossly intact. Normal inspection of face. Normal inspection of neck. Psychologic: Normal affect. Respiratory: Nonlabored. No use of accessory muscles. No tachypnea or dyspnea. Cardiovascular: No tachycardia Skin: [place] and Dry. No rashes or visible lesions. Extremities/Lymphatics: No edema Abdomen: Appropriately tender. Mild distended. No rebound or guarding. Wound: Clean, dry, covered. PIPE in place with serosanguineous drainage Jones in place draining light pink urine Results & Data ([facility]) Vital Signs (Past 12 Hours) Vital Signs Temp Pulse Pulse Resp BP BP Pulse Ox 04/29/20 11:52 37.2 C 86 18 158/59 H 92 04/29/20 07:33 37.0 C 107 H 18 115/68 90 04/29/20 03:35 37.1 C 105 H 18 123/74 90 04/29/20 01:17 117 H 04/29/20 01:04 36.7 C 89 18 127/73 92 PG Care Time/CCT Total # of Minutes Spent Total Time Spent with Patient: Total time spent is greater than 50% in coordination of care (as documented) at patient's floor/unit and/or counseling patient: Coding Level of Care Code 53199 Subseq Hosp Care Lvl 3 Diagnoses Enlarged prostate N40.0
[2020-04-29] MEDS ORDERED: ALUMINUM/MAGNESIUM SUSP 30 ML UDC PO PRN (21:05)
--- NOTE | 2020-04-29 22:26 | Hospitalist Progress Note ---
Date of Service April 29, 2020 Assessment & Plan (1) Tachycardia: Patient continues to show signs of sinus tachycardia. Likely multifactorial. Lactic acidosis and elevated creatinine with fluid loss can likely cause this. Patient does not appear septic: normal procal. However, will continue antibiotics for the meantime. This was negative. Patient is on room air, do not feel atelectasis is causing his sinus tachycardia. No signs of ileus. Patient will be having a urinary cystoscopy by urology tomorrow. (2) Weight loss: appears controlled. (3) Mood disorder: will resume home meds. (4) Enlarged prostate: sp prostatectomy. defer dvt proph. and pain management to primary team (5) Lactic acidosis: Patient had a lactic acidosis of 4. This improved to over 2 but still elevated this AM after receiving fluid. Patient will continue to receive more fluid. (6) Acute kidney failure: Creatinine was elevated. He is responding to fluids, will continue to monitor for now. Admission and Anticipated Discharge Date Admission Date: April 26, 2020 Subjective Patient remains tachycardic. He reports no new symptoms at this time. Review of Systems Review of Systems: All systems reviewed & are unremarkable except as noted in HPI & below Physical Exam Constitutional: WD/WN, vitals as above well developed and well nourished Eyes: PERRL, conjunctivae normal, anicteric sclerae ENMT: external ear and nose normal, oropharynx normal Neck: trachea midline, no thyromegaly Cardiovascular: Rate/Rhythm: + tachycardic Heart Sounds: normal S1 and normal S2 Vessels: no JVD Gastrointestinal (Abdomen): normal bowel sounds, soft, nontender, no hepatosplenomegaly Musculoskeletal: no cyanosis or clubbing, extremities motor strength 5/5 Skin: no rashes, warm and dry Neurologic: PERRL, EOMI, accommodation nl, no face palsy, no dysarthria Psychiatric: A+Ox3, euthymic affect Results & Data Results & Data ([facility]) Vital Signs (Past 12 Hours) Vital Signs Temp Pulse Pulse Resp BP Pulse Ox 04/29/20 19:00 36.9 C 103 H 20 136/73 93 04/29/20 16:00 99 H 04/29/20 15:22 37.2 C 100 H 18 145/66 H 88 L 04/29/20 11:52 37.2 C 86 18 158/59 H 92 PG Care Time/CCT Total # of Minutes Spent Total Time Spent with Patient: Total time spent is greater than 50% in coordination of care (as documented) at patient's floor/unit and/or counseling patient: Coding Level of Care Code 78384 Subseq Hosp Care Lvl 3 Diagnoses Tachycardia R00.0 Weight loss R63.4 Mood disorder F39 Enlarged prostate N40.0 Lactic acidosis E87.2 Acute kidney failure N17.9 Time Spent (min) 35
[2020-04-30] MEDS: LACTATED RINGER'S 1,000 ML IV SCH ×2 (05:27→17:42)
[2020-04-30] MEDS: PIPERACILLIN/TAZOBACTAM 3.375 GM in DEXTROSE 5% 100 ML IV SCH ×3 (06:13→22:40)
[2020-04-30 06:38] LABS: Hematocrit (blood only) 20.2 % (42-52); Hemoglobin 6.7 g/dL (14.0-18.0); Mean Corpuscular Hemoglobin 30.2 pg (25-34); Mean Corpuscular Hgb Conc 33.2 g/dL (32-36); Mean Platelet Volume 10.6 fL (7.4-10.4); Platelet Count 138 K/uL (130-400); RDW Coefficient of Variation 14.1 % (11.5-14.5); RDW Standard Deviation 46.8 fL (36.4-46.3); Red Blood Count 2.22 M/uL (4.7-6.1); White Blood Count 9.52 K/uL (4.8-10.8)
[2020-04-30] MEDS ORDERED: SODIUM CHLORIDE 0.9% 250 ML IV PRN ×2 (06:50→07:18)
[2020-04-30 06:55] LABS: BUN Creatinine Ratio 19.6 (10-20); Calcium 7.6 mg/dl (8.5-10.1); Creatinine Clr Calc Pharmacy 94.1 ml/min; Est GFR (African American) 113.4; Est GFR (Non-African American) 97.8; Potassium 3.5 mmol/L (3.5-5.1)
[2020-04-30 07:53] LABS: Eosinophils # (auto) 0.01 K/uL (0-0.5); Eosinophils % (auto) 0.1 %; Immature Granulocytes # (auto) 0.02 K/uL (0.00-0.02); Immature Granulocytes % (auto) 0.2 %; Lymphocytes # (auto) 0.59 K/uL (1.2-3.4); Lymphocytes % (auto) 6.2 %; Monocytes # (auto) 1.02 K/uL (0.11-0.59); Monocytes % (auto) 10.7 %; Neutrophils # (auto) 7.88 K/uL (1.4-6.5); Neutrophils % (auto) 82.8 %; RBC Morphology Unremarkable
[2020-04-30] MEDS: PARoxetine HCL 20 MG TAB PO SCH (08:27)
[2020-04-30] MEDS: MULTIVITAMIN TAB PO SCH (08:27)
[2020-04-30] MEDS: ONDANSETRON INJ 2 MG/ML 2 ML VIAL IV PRN (08:31)
--- NOTE | 2020-04-30 12:41 | Urology Progress Note ---
Date of Service April 30, 2020 Assessment & Plan (1) Enlarged prostate: 74 yo M POD #4 s/p simple prostatectomy with Dr. Floyd. Patient found to be significantly anemic this morning underwent transfusion of 2 units which are currently in the midst of being given. Patient had bowel mov ement this morning. He has continued bowel function with flatus. Patient overall is not experiencing considerable pain. Urine is minimally pink and does not appear to be side of bleeding. Has continued serosanguineous drainage. Continued straw/yellow-colored drainage from suprapubic PIPE tube. Concern for possible leak with malfunction and loss of catheter on postop day 2 with now continued leakage. Patient is tolerating n.p.o. We will plan to continue to monitor. Patient's heparin has been held. Will order imaging later today to assess abdomen. If patient has continued large volume leakage without improvement and issues remaining with catheter or signs of the catheter is not eating well may need to consider setting patient up for exploratory surgery to repair possible leak or other issues that have developed since the dislodgment of the surgical catheter. Will maintain drains for now. Continue to monitor. Appreciate continued monitoring and supportive care Admission and Anticipated Discharge Date Admission Date: April 26, 2020 Subjective Patient was made n.p.o. last night due to increased drainage from PIPE tubes with concern for possible leak due to catheter malfunction in the postoperative period. Patient's catheter was readjusted again today. With easy ability to flush. Continues to have larger output from the suprapubic region. Patient found to be significantly anemic this morning. 2 units of packed blood red cells were placed and patient is being transfused. Patient has not experienced any pain or discomfort but overall has been feeling well has been moving. Had bowel movement this morning with now return of bowel function. Continues to have flatus. Review of Systems Review of Systems: All systems reviewed & are unremarkable except as noted in HPI & below Physical Exam Physical Exam: General: Alert in no acute distress. HEENT: Normocephalic Atraumatic. Inspection normal. Cranial Nerves 2-12 Grossly intact. Normal inspection of face. Normal inspection of neck. Psychologic: Normal affect. Respiratory: Nonlabored. No use of accessory muscles. No tachypnea or dyspnea. Cardiovascular: No tachycardia Skin: [place] and Dry. No rashes or visible lesions. Extremities/Lymphatics: No edema Abdomen: Appropriately tender. Mild distended. No rebound or guarding. Wound: Clean, dry, covered. PIPE in place with serosanguineous drainage Jnoes in place draining light pink urine. Catheter balloon was deflated readjusted and repositioned. Under 20 cc were easily irrigated and the catheter without issue. Urine is light yellow with very mild pink without major bleeding Results & Data ([facility]) Vital Signs (Past 12 Hours) Vital Signs Temp Pulse Pulse Resp BP BP BP 04/30/20 11:39 37.6 C H 78 16 121/63 04/30/20 11:30 37.6 C H 78 16 121/63 04/30/20 09:45 37.1 C 85 18 119/58 L 04/30/20 09:27 36.9 C 93 H 18 110/64 04/30/20 07:29 37.1 C 69 16 112/64 04/30/20 04:38 37.9 C H 102 H 20 123/64 04/30/20 02:11 112 H Pulse Ox 04/30/20 11:39 98 04/30/20 11:30 98 04/30/20 09:45 98 04/30/20 09:27 95 04/30/20 07:29 91 04/30/20 04:38 95 04/30/20 02:11 PG Care Time/CCT Total # of Minutes Spent Total Time Spent with Patient: Total time spent is greater than 50% in coordination of care (as documented) at patient's floor/unit and/or counseling patient: Coding Level of Care Code 12979 Subseq Hosp Care Lvl 3 Diagnoses Enlarged prostate N40.0
[2020-04-30] MEDS: ACETAMINOPHEN 325 MG TAB PO PRN (14:17)
[2020-04-30] MEDS ORDERED: OPTIRAY 320 100ml IV ONE (18:29)
--- NOTE | 2020-04-30 18:52 | CT Scan Report ---
CT abdomen pelvis wo/w con CLINICAL HISTORY: s/p simple prostatectomy, anemia, eval for leak COMPARISON STUDY: CT scan dated 04/16/2020 TECHNIQUE: Unenhanced images were obtained through the abdomen and pelvis. The patient was injected w ith 50 cc of Optiray 320. Findings 5 minute delay, the patient was rescanned in a dynamic helical fas hion during additional administration of 44 cc of Optiray 320. 10:15 minute delayed images through th e bladder were acquired. A dose lowering technique was utilized adhering to the principles of ALARA. CT DOSE: 2151.64 mGycm FINDINGS: Lower chest: Since the prior study, the patient developed small bilateral pleural effusions with asso ciated basilar parenchymal opacities, likely atelectatic. Liver: The contrast-enhanced liver is normal in size, contour, and attenuation. There is no intrahepa tic biliary ductal dilatation. The hepatic veins and portal veins are patent. Gallbladder: Cholelithiasis Spleen: Normal in size and attenuation. Pancreas: Unremarkable. Adrenal glands: Unremarkable. Kidneys: There is a 2 mm nonobstructing left renal calculus. No ureteral or bladder calculi are visua lized. There is no hydronephrosis. There are 2 tangential left renal cysts, the largest of which ashley ures 48 mm. Bowel: There are multiple fluid-filled bowel loops with air-fluid levels. A discrete transition zone is not identified. The findings likely represent a post surgical ileus. There is no acute diverticuli tis. There is minor rectal wall thickening. Peritoneum: There is a small amount of free fluid within the pelvis which on delayed images opacifies with contrast. This is consistent with a urinoma. There is no free air. 2 surgical drains are visual ized. Vasculature: The abdominal aorta is normal in course and caliber. Adenopathy: There are borderline enlarged right iliac chain lymph nodes. There are prominent perirect al lymph nodes. These remain similar to the prior study. Pelvic viscera: There is evidence for interval prostatectomy. There is a joint Jones catheter. There is significant bladder wall thickening. There is extraluminal contrast posterior to the bladder consi stent with an anastomotic bladder leak. Several bladder diverticula are suspected. Skeletal structures: No destructive osseous lesions are seen. IMPRESSION: 1. Interval prostatectomy 2. Opacified fluid posterior to the bladder, indicative of an anastomotic bladder leak 3. Moderate bladder wall thickening 4. Mild rectal wall thickening 5. Ileus pattern 6. Stable borderline enlarged right iliac chain and perirectal lymph nodes 7. Cholelithiasis 8. Nonobstructing 2 mm left renal calculus 9. Interval development of bilateral pleural effusions with bibasilar opacities likely representing c ompressive atelectasis ACT 112: Negative or not required by law. Electronically signed by: Jeffery Gipson M.D. 04/30/2020 6:51 PM
[2020-05-01] MEDS: LACTATED RINGER'S 1,000 ML IV SCH ×3 (03:36→21:40)
[2020-05-01] MEDS: PIPERACILLIN/TAZOBACTAM 3.375 GM in DEXTROSE 5% 100 ML IV SCH ×3 (06:37→22:16)
[2020-05-01 06:50] LABS: Basophils # (auto) 0.01 K/uL (0-0.2); Basophils % (auto) 0.1 %; Eosinophils # (auto) 0.17 K/uL (0-0.5); Eosinophils % (auto) 2.4 %; Hematocrit (blood only) 26.7 % (42-52); Hemoglobin 8.8 g/dL (14.0-18.0); Immature Granulocytes # (auto) 0.03 K/uL (0.00-0.02); Immature Granulocytes % (auto) 0.4 %; Lymphocytes # (auto) 0.84 K/uL (1.2-3.4); Lymphocytes % (auto) 11.9 %; Mean Corpuscular Hemoglobin 29.4 pg (25-34); Mean Corpuscular Volume 89.3 fL (80-100); Mean Platelet Volume 10.8 fL (7.4-10.4); Monocytes % (auto) 11.3 %; Neutrophils # (auto) 5.21 K/uL (1.4-6.5); Neutrophils % (auto) 73.9 %; Nucleated RBC # (auto) 0.02 K/uL (0-0); Nucleated RBC % (auto) 0.3 %; Platelet Count 147 K/uL (130-400); RDW Coefficient of Variation 15.4 % (11.5-14.5); RDW Standard Deviation 50.4 fL (36.4-46.3); Red Blood Count 2.99 M/uL (4.7-6.1); White Blood Count 7.06 K/uL (4.8-10.8)
[2020-05-01 07:31] LABS: BUN Creatinine Ratio 24.1 (10-20); Calcium 7.7 mg/dl (8.5-10.1); Creatinine Clr Calc Pharmacy 109.6 ml/min; Est GFR (African American) 120.7; Est GFR (Non-African American) 104.1; Potassium 3.3 mmol/L (3.5-5.1)
[2020-05-01] MEDS: MULTIVITAMIN TAB PO SCH (07:56)
[2020-05-01] MEDS: PARoxetine HCL 20 MG TAB PO SCH (07:56)
--- NOTE | 2020-05-01 09:43 | Urology Progress Note ---
Date of Service May 01, 2020 Assessment & Plan (1) BPH (benign prostatic hyperplasia): Status post robotic simple prostatectomy Accidental catheter removal on POD 1-2 This raised concerns of possible rupture of his bladder closure, however CT shows that the closure has held, his only leak appears to be very distal, likely from the bladder neck or prostate capsule, likely an expected occurrence in the setting of the surgery This is extraperitoneal and does not require surgical intervention but simply catheter drainage and time He received a transfusion yesterday, he shows no signs of bleeding in his urine or his drains, continue to observe Although he had a bowel movement today, his abdomen is still distended and he continues to hiccup, I would likely continue to manage him as a presumed ileus with limited p.o. intake Continue ambulation, continue both drains for the time being Hopefully will turn the corner in the next 24 to 48 hours and be suited for discharge home Admission and Anticipated Discharge Date Admission Date: April 26, 2020 Subjective Clinically improved today He received 2 units of blood yesterday He had a CT CT reviewed and discussed as she does appear to have some contrast escaping the system, however this is extremely distal, likely at the level of the bladder neck or prostate and appears to be extraperitoneal pulling around the seminal vesicles below the pouch of Isauro There is no significant injury peritoneal urinary ascites His urine is clear, his drain output is clear He reports that he had a bowel movement this morning, however he continues to have hiccups He remains somewhat distended but overall feels that he is improvinghe has been ambulatory Creatinine levels have decreased, hemoglobin improved appropriately after transfusion Physical Exam Constitutional: well developed and well nourished Respiratory: no respiratory distress Cardiovascular: Extremities: no pedal edema Gastrointestinal (Abdomen): Inspection/Auscultation: + abdomen distended Dressings over the incisions, all of these were lifted and checkedhealthy appearing incisions, drain outputs are serous, urine is clear without any blood Results & Data ([facility]) Vital Signs (Past 12 Hours) Vital Signs Temp Pulse Pulse Pulse Resp BP Pulse Ox 05/01/20 07:04 36.6 C 70 16 125/64 98 05/01/20 04:00 36.8 C 72 20 127/63 96 05/01/20 03:37 76 04/30/20 23:47 37 C 78 20 127/66 97 PG Care Time/CCT Total # of Minutes Spent Total Time Spent with Patient: Total time spent is greater than 50% in coordination of care (as documented) at patient's floor/unit and/or counseling patient: Coding Level of Care Code 99996 Subseq Hosp Care Lvl 3 Diagnoses BPH (benign prostatic hyperplasia) N40.1; R33.8 Lower urinary tract symptom presence: symptoms present Lower urinary tract symptom detail: urinary retention (1) BPH (benign prostatic hyperplasia) Lower urinary tract symptom presence: symptoms present Lower urinary tract symptom detail: urinary retention Qualified Code(s): N40.1 - Benign prostatic hyperplasia with lower urinary tract symptoms; R33.8 - Other retention of urine
--- NOTE | 2020-05-01 22:59 | Hospitalist Progress Note ---
Date of Service May 01, 2020 Assessment & Plan (1) Tachycardia: Resolved. Likely multifactorial. Lactic acidosis and elevated creatinine with fluid loss can likely cause this. He also required 2PRBC transfusion. Patient did not appear septic: normal procal. However, will continue antibiotics for the meantime: likely continue for 7 days. Patient will be having a urinary cystoscopy by urology tomorrow. (2) Weight loss: appears controlled. (3) Mood disorder: will resume home meds. (4) Enlarged prostate: sp prostatectomy. defer dvt proph. and pain management to primary team (5) Lactic acidosis: resolved. (6) Acute kidney failure: resolved. (7) Ileus: improved. Medicine will sign off for the meantime. If any further questions arrive, please do not hesitate to reconsult. Admission and Anticipated Discharge Date Admission Date: April 26, 2020 Subjective Patient is HAS HICCUPS BUT REPORTS passing gas and stool. Review of Systems Review of Systems: All systems reviewed & are unremarkable except as noted in HPI & below Physical Exam Constitutional: WD/WN, vitals as above well developed and well nourished Eyes: PERRL, conjunctivae normal, anicteric sclerae ENMT: external ear and nose normal, oropharynx normal Neck: trachea midline, no thyromegaly Cardiovascular: Rate/Rhythm: + tachycardic Heart Sounds: normal S1 and normal S2 Vessels: no JVD Gastrointestinal (Abdomen): normal bowel sounds, soft, nontender, no hepatosplenomegaly Musculoskeletal: no cyanosis or clubbing, extremities motor strength 5/5 Skin: no rashes, warm and dry Neurologic: PERRL, EOMI, accommodation nl, no face palsy, no dysarthria Psychiatric: A+Ox3, euthymic affect Results & Data Results & Data ([facility]) Vital Signs (Past 12 Hours) Vital Signs Temp Pulse Pulse Resp BP BP Pulse Ox 05/01/20 22:00 36.8 C 73 20 132/66 96 05/01/20 18:47 37.8 C H 83 20 137/65 92 05/01/20 15:41 36.9 C 82 20 122/70 92 05/01/20 11:18 36.2 C L 80 16 116/58 L 97 PG Care Time/CCT Total # of Minutes Spent Total Time Spent with Patient: Total time spent is greater than 50% in coordination of care (as documented) at patient's floor/unit and/or counseling patient: Coding Level of Care Code 65849 Subseq Hosp Care Lvl 2 Diagnoses Tachycardia R00.0 Weight loss R63.4 Mood disorder F39 Enlarged prostate N40.0 Lactic acidosis E87.2 Acute kidney failure N17.9 Ileus K56.7
[2020-05-02] MEDS: LACTATED RINGER'S 1,000 ML IV SCH ×2 (06:03→16:03)
[2020-05-02] MEDS: PIPERACILLIN/TAZOBACTAM 3.375 GM in DEXTROSE 5% 100 ML IV SCH ×3 (06:03→22:31)
[2020-05-02 07:32] LABS: Hematocrit (blood only) 30.9 % (42-52); Hemoglobin 10.4 g/dL (14.0-18.0); Mean Corpuscular Hemoglobin 29.9 pg (25-34); Mean Corpuscular Hgb Conc 33.7 g/dL (32-36); Mean Corpuscular Volume 88.8 fL (80-100); Mean Platelet Volume 10.7 fL (7.4-10.4); Platelet Count 200 K/uL (130-400); RDW Standard Deviation 48.6 fL (36.4-46.3); Red Blood Count 3.48 M/uL (4.7-6.1); White Blood Count 9.96 K/uL (4.8-10.8)
--- NOTE | 2020-05-02 07:40 | Urology Progress Note ---
Date of Service May 02, 2020 Assessment & Plan (1) BPH (benign prostatic hyperplasia): 74 year-old male patient admitted status post robotic simple prostatectomy. -POD #6 robotic assisted laparoscopic simple prostatectomy with right pelvic lymph node dissection. -Accidental catheter removal on POD 1-2. CT showed bladder closure has held, only with leak appearing distal, likely from the bladder neck or prostate capsule - likely an expected occurrence in the setting of the surgery. -No acute surgical intervention warranted at this time. -Patient currently afebrile, max temperature over past 24 hours 37.8 C. -Labs reviewed - white count and creatinine stable, hemoglobin improving. -Continue arellano catheter and PIPE management. -Will advance diet to clear liquids. -Continue with supportive care and encourage ambulation. -Will continue to follow closely. Please call with any acute changes in patient condition. Admission and Anticipated Discharge Date Admission Date: April 26, 2020 Subjective POD #6 robotic assisted laparoscopic simple prostatectomy with right pelvic lymph node dissection. Patient feeling better overall this morning. Sitting up in chair at time of assessment. Currently denies pain. Denies nausea or vomiting. States he continues to have intermittent hiccups, however improved. Feels bloating has improved, now passing flatus and did have bowel movement over night. Has been NPO, IV fluids infusing. Requesting diet as he feels hungry. Tolerating arellano catheter. No dizziness/lightheadedness out of bed. Chart review: Max temp over the past 24 hours 37.8, currently 37.0. Wbc 9.96 Hgb 10.4 (previously 8.8) - received 2 units PRBC 04/30 Arellano output overnight 750 ml. PIPE #1 output overnight - 145 ml (previously 110 and 190 ml). PIPE#2 output overnight - 5 ml. Denies additional urologic concerns today. Review of Systems Constitutional: as per Subjective / HPI; no fever and no chills Respiratory: no cough and no dyspnea Cardiovascular: no chest pain Gastrointestinal: as per Subjective / HPI; no nausea and no vomiting Genitourinary: + as per Subjective / HPI Neurologic: as per Subjective / HPI Physical Exam Constitutional: well developed and well nourished; no acute distress and not ill appearing Respiratory: normal respiratory effort and able to speak in complete sentences; no respiratory distress and no audible wheezes On oxygen therapy via nasal cannula. Cardiovascular: Extremities: no edema Gastrointestinal (Abdomen): Inspection/Auscultation: abdomen normal to inspection and + abdomen distended (mildy distended on exam. ) Percussion/Palpation: abdomen nontender and no guarding Abdomen mildly firm on exam. Patient reports this is his baseline. Dressings to abdomen dry and intact. PIPE #1 draining serous drainage. PIPE #2 draining serosanguineous drainage. Psychiatric: Orientation: alert, oriented x 3 and cooperative Affect: euthymic affect Genitourinary: no CVA tenderness Arellano catheter intact draining clear marilu urine. Results & Data ([facility]) Vital Signs (Past 12 Hours) Vital Signs Temp Pulse Pulse Pulse Resp BP BP 05/02/20 04:57 81 05/02/20 04:10 37.0 C 74 19 137/68 05/01/20 22:00 36.8 C 73 20 132/66 Pulse Ox 05/02/20 04:57 05/02/20 04:10 97 05/01/20 22:00 96 PG Care Time/CCT Total # of Minutes Spent Total Time Spent with Patient: Total time spent is greater than 50% in coordination of care (as documented) at patient's floor/unit and/or counseling patient: Coding Level of Care Code 28379 Subseq Hosp Care Lvl 2 Diagnoses BPH (benign prostatic hyperplasia) N40.1; R33.8 Lower urinary tract symptom detail: urinary retention Lower urinary tract symptom presence: symptoms present (1) BPH (benign prostatic hyperplasia) Lower urinary tract symptom detail: urinary retention Lower urinary tract symptom presence: symptoms present Qualified Code(s): N40.1 - Benign prostatic hyperplasia with lower urinary tract symptoms; R33.8 - Other retention of urine
[2020-05-02 08:06] LABS: BUN Creatinine Ratio 24.6 (10-20); Calcium 7.9 mg/dl (8.5-10.1); Creatinine Clr Calc Pharmacy 111.6 ml/min; Est GFR (African American) 121.6; Est GFR (Non-African American) 104.9; Magnesium 2.1 mg/dl (1.8-2.4); Phosphorus 2.5 mg/dl (2.5-4.9)
[2020-05-02] MEDS: MULTIVITAMIN TAB PO SCH (08:07)
[2020-05-02] MEDS: PARoxetine HCL 20 MG TAB PO SCH (08:07)
[2020-05-02] MEDS ORDERED: Nursing to Pharmacy Communication SCH (18:15)
[2020-05-03] MEDS: LACTATED RINGER'S 1,000 ML IV SCH ×3 (02:13→22:13)
[2020-05-03 04:18] LABS: Cdiff Antigen Positive; Cdiff Toxin A+B Negative Cdiff Toxin (Negative)
[2020-05-03] MEDS: PIPERACILLIN/TAZOBACTAM 3.375 GM in DEXTROSE 5% 100 ML IV SCH ×3 (06:41→22:38)
[2020-05-03] MEDS: MULTIVITAMIN TAB PO SCH (08:20)
[2020-05-03] MEDS: PARoxetine HCL 20 MG TAB PO SCH (08:20)
--- NOTE | 2020-05-03 08:57 | Urology Progress Note ---
Date of Service May 03, 2020 Assessment & Plan (1) BPH (benign prostatic hyperplasia): 74 yo M POD #6 status post robotic simple prostatectomy. - POD #6 robotic assisted laparoscopic simple prostatectomy with right pelvic lymph node dissection. - Accidental catheter removal on POD 1-2. CT showed bladder closure has held, only with leak appearing distal, likely from the bladder neck or prostate capsule - likely an expected occurrence in the setting of the surgery. - No acute surgical intervention warranted at this time. - Patient remains afebrile. - Labs reviewed - white count and creatinine stable, hemoglobin improving; no new labs at time of exam today. - Continue Jones catheter and PIPE management. - Continue clear liquid diet for now. Possibly advance to full liquid diet later today if continues to progress. - Continue with supportive care and encourage ambulation. - Will continue to follow closely. Please call with any acute changes in patient condition. Admission and Anticipated Discharge Date Admission Date: April 26, 2020 Subjective 74 yo M POD #6 s/p robotic assisted laparoscopic simple prostatectomy with right pelvic lymph node dissection. Patient feeling better overall this morning. Sitting up in bed eating breakfast at time of assessment. Reports some mild right lower abdominal discomfort starting this morning. Has not utilized pain medication recently. Denies nausea or vomiting. Tolerating clear liquid diet. Feels he is ready to advance diet. States he continues to have intermittent hiccups, however improved. Feels bloating has improved, passing flatus and reports multiple bowel movements, last BM @~0200. Tolerating Jones catheter. Jones intact, patent and draining clear yellow urine. Has ambulated around room without difficulty. No fever or chills. Chart review: Afebrile overnight WBC 9.96 (05/02) Hgb 10.4 (05/02) - received 2 units PRBC 04/30 Jones output overnight 1200 mL PIPE #1 output overnight - 300 mL PIPE#2 output overnight - 15 mL C. diff positive gene, negative toxin On IV Zosyn Denies additional urologic concerns today. Review of Systems Constitutional: as per Subjective / HPI Gastrointestinal: as per Subjective / HPI Genitourinary: + as per Subjective / HPI Physical Exam Constitutional: well developed and well nourished; no acute distress Respiratory: normal respiratory effort and able to speak in complete sentences; no respiratory distress and no labored breathing Cardiovascular: Extremities: no calf tenderness and no pedal edema Gastrointestinal (Abdomen): Abdomen soft, mild distention, minimal tenderness to right lower quadrant, no rebound or guarding Musculoskeletal: Head/Neck/Chest: normocephalic and head atraumatic Extremities: extremities normal to inspection Skin: Surgical incisions - dressings C/D/I PIPE #1 right abdomen with moderate amount of serous/clear yellow output PIPE #2 midline with minimal serosanguinous drainage Neurologic: moves all extremities and awake Psychiatric: Orientation: alert and oriented x 3 Genitourinary: Jones catheter intact, patent, and draining clear yellow urine Results & Data ([facility]) Vital Signs (Past 12 Hours) Vital Signs Temp Pulse Pulse Resp BP Pulse Ox 05/03/20 07:26 36.9 C 73 18 123/63 94 05/03/20 05:08 77 05/03/20 03:59 36.9 C 66 18 127/62 93 05/02/20 23:50 37.1 C 70 18 130/69 93 PG Care Time/CCT Total # of Minutes Spent Total Time Spent with Patient: Total time spent is greater than 50% in coordination of care (as documented) at patient's floor/unit and/or counseling patient: Coding Level of Care Code 10380 Subseq Hosp Care Lvl 2 Diagnoses BPH (benign prostatic hyperplasia) N40.1; R33.8 Lower urinary tract symptom detail: urinary retention Lower urinary tract symptom presence: symptoms present (1) BPH (benign prostatic hyperplasia) Lower urinary tract symptom detail: urinary retention Lower urinary tract symptom presence: symptoms present Qualified Code(s): N40.1 - Benign prostatic hyperplasia with lower urinary tract symptoms; R33.8 - Other retention of urine
[2020-05-03] MEDS: ONDANSETRON INJ 2 MG/ML 2 ML VIAL IV PRN (21:32)
[2020-05-03] MEDS: ACETAMINOPHEN 325 MG TAB PO PRN (21:32)
[2020-05-04] MEDS: MULTIVITAMIN TAB PO SCH (08:43)
[2020-05-04] MEDS: PARoxetine HCL 20 MG TAB PO SCH (08:43)
[2020-05-04] MEDS: LACTATED RINGER'S 1,000 ML IV SCH (08:44)
--- NOTE | 2020-05-04 14:01 | Urology Progress Note ---
Date of Service May 04, 2020 Assessment & Plan (1) Ileus: Will slowly advance diet Check creatinine from drains Get patient out of bed to ambulate (2) Hypokalemia: And with diarrhea which may be exacerbating hypokalemia given it was 3 2 days ago we will check today start the patient on half-normal saline with 40 mg equivalents potassium for 2 diuretics and then will go back to 20 mEq potassium and will give him 20 mEq of potassium today. Admission and Anticipated Discharge Date Admission Date: April 26, 2020 Subjective In addition the patient has been having diarrhea and his last potassium was 3.0 we will start him on 1 dose of 20 mEq calcium citrate and 40 mEq of potassium citrate in his IV for 3 doses and check potassium today and tomorrow morning. 74-year-old male postop day #8 status post robotic suprapubic prostatectomy. The patient's course was complicated by having his catheter fall out which was replaced with some difficulty and a CAT scan was done which showed that he did have some extravasation. Patient's course has also been complicated by abdominal distention. He was on a full liquid diet and has been having bowel movements that were loose and was tested for C. difficile was gene positive but toxin negative which after discussing this with micro suggest that he is not having active C. difficile but is at risk. His antibiotics have been stopped. He is hungry and even though he is slightly distended we will advance his diet. And has had a moderate output from the drain that is in the abdominal cavity but does go past the area of surgery. There is some concern that maybe his bladder incision might be draining. He also has a drain in the suprapubic area which is draining minimal fluid. Sent creatinine today for both drains. Patient is somewhat deconditioned and is only getting up to get to the bathroom and we will try to have him ambulate more today. He also been having some unusual dreams and we consulted the hospitalist who laced him back on his previous psychiatric medicines and the patient seems to be better. Physical Exam Gastrointestinal (Abdomen): Mild distention but abdomen overall soft and nontender Results & Data ([facility]) Vital Signs (Past 12 Hours) Vital Signs Temp Pulse Pulse Resp BP Pulse Ox 05/04/20 13:52 36.8 C 75 18 149/69 H 93 05/04/20 07:44 36.8 C 71 18 126/65 90 05/04/20 02:52 36.6 C 64 19 134/69 91 Laboratory Results Gene positive for C. difficile but toxin negative on 1224 Creatinine from drains pending PG Care Time/CCT Total # of Minutes Spent Total Time Spent with Patient: Total time spent is greater than 50% in coordination of care (as documented) at patient's floor/unit and/or counseling patient: Coding Level of Care Code None Diagnoses Ileus K56.7 Hypokalemia E87.6
[2020-05-04] MEDS ORDERED: POTASSIUM CHLORIDE CRTAB 20 MEQ TABCR PO STA ×2 (14:19→18:07)
[2020-05-04] MEDS: POTASSIUM CHLORIDE 40 MEQ in SODIUM CHLORIDE 0.45 % 1,000 ML IV SCH (14:38)
[2020-05-04 15:18] LABS: Calcium 7.5 mg/dl (8.5-10.1); Creatinine Clr Calc Pharmacy 121.4 ml/min; Est GFR (African American) 121.6; Est GFR (Non-African American) 104.9; Potassium 2.6 mmol/L (3.5-5.1)
[2020-05-04] MEDS ORDERED: RASPBERRY SYRUP 5 ML UDP PO STA (18:07)
[2020-05-04] MEDS ORDERED: VANCOMYCIN HCL 125 MG/2.5ML SOLN PO STA (18:07)
--- NOTE | 2020-05-04 18:11 | Hospitalist Progress Note ---
Date of Service May 04, 2020 Assessment & Plan (1) Bradycardia: reviewed on monitor - does have about 10 seconds of what can be interpreted as a mobitz II -- P-QRS, P-no QRS, repeat x ~3 cycles. cezar a little before and after, sinus now. will ask for cardiology opinion since technically mobitz II would require a pacer - but with marked hypokalemia at the time and such short lived and asymptomatic - ?could this have been a mobitz I that really just didn't last long enough to truly evolve to such on monitor?? continue to monitor, replace K. mag recently was OK - but given days of diarrhea since, will at least gently replace this too (2) Hypokalemia: from diarrhea. replacement started by urology - will add. BMP in AM. (3) Diarrhea: while labs would suggest a carrier state, clinical picture suggests active, albeit not severe, infection. will start vanco - would anticipate improvement in diarrhea over next ~48hrs then. discussed with pt presumed 2wks total of vanco - but then ~1/5 recurrence rate w Cdiff due to spore formation (and therefore vigilance after treatment has been completed) (4) Hypernatremia: fluids now 0.45% - should help correct. BMP in AM Admission and Anticipated Discharge Date Admission Date: April 26, 2020 Subjective diarrhea for several days, pretty much every other hour while awake - not quite as often when asleep but still does wake him from sleep some. is able to eat. bradycardia episode earlier - around the time i inform him it happened he notes that was probably when he was talking to - he felt no lightheaded/dizzy/etc. d/w dr delong - concern on cezar as well as diarrhea, electrolytes Review of Systems Review of Systems: All systems reviewed & are unremarkable except as noted in HPI & below Physical Exam Physical Exam: gen aaox3 pleasant nad heent nc at mmm breathing unlabored no accessory muscles good effort skin no rashes no pallor or icterus neuro no focal deficits abd soft mod distention nontender no guarding Results & Data Results & Data ([facility]) Vital Signs (Past 12 Hours) Vital Signs Temp Pulse Pulse Pulse Resp BP Pulse Ox 05/04/20 16:38 98.1 F 70 20 144/68 H 94 05/04/20 16:00 78 05/04/20 13:52 98.2 F 75 18 149/69 H 93 05/04/20 07:44 98.2 F 71 18 126/65 90 PG Care Time/CCT Total # of Minutes Spent Total Time Spent with Patient: Total time spent is greater than 50% in coordination of care (as documented) at patient's floor/unit and/or counseling patient: Coding Level of Care Code 99674 Subseq Hosp Care Lvl 3 Diagnoses Bradycardia R00.1 Hypokalemia E87.6 Diarrhea R19.7 Hypernatremia E87.0
[2020-05-05] MEDS: VANCOMYCIN HCL 125 MG/2.5ML SOLN PO SCH ×4 (00:40→19:34)
[2020-05-05] MEDS: RASPBERRY SYRUP 5 ML UDP PO SCH ×4 (00:40→19:33)
[2020-05-05 08:19] LABS: Basophils # (auto) 0.03 K/uL (0-0.2); Basophils % (auto) 0.4 %; Eosinophils # (auto) 0.42 K/uL (0-0.5); Eosinophils % (auto) 5.9 %; Hematocrit (blood only) 29.3 % (42-52); Hemoglobin 9.5 g/dL (14.0-18.0); Immature Granulocytes # (auto) 0.19 K/uL (0.00-0.02); Immature Granulocytes % (auto) 2.7 %; Lymphocytes # (auto) 1.21 K/uL (1.2-3.4); Lymphocytes % (auto) 16.9 %; Mean Corpuscular Hemoglobin 29.3 pg (25-34); Mean Corpuscular Hgb Conc 32.4 g/dL (32-36); Mean Corpuscular Volume 90.4 fL (80-100); Mean Platelet Volume 10.4 fL (7.4-10.4); Monocytes # (auto) 0.66 K/uL (0.11-0.59); Monocytes % (auto) 9.2 %; Neutrophils # (auto) 4.64 K/uL (1.4-6.5); Neutrophils % (auto) 64.9 %; Platelet Count 198 K/uL (130-400); RDW Standard Deviation 48.9 fL (36.4-46.3); Red Blood Count 3.24 M/uL (4.7-6.1); White Blood Count 7.15 K/uL (4.8-10.8)
[2020-05-05 08:44] LABS: BUN Creatinine Ratio 11.3 (10-20); Calcium 7.9 mg/dl (8.5-10.1); Creatinine Clr Calc Pharmacy 136.4 ml/min; Est GFR (African American) 127.6; Est GFR (Non-African American) 110.1; Potassium 3.1 mmol/L (3.5-5.1)
[2020-05-05] MEDS: PARoxetine HCL 20 MG TAB PO SCH (09:01)
[2020-05-05] MEDS: MAGNESIUM OXIDE 400 MG TAB PO SCH (09:01)
[2020-05-05] MEDS: MULTIVITAMIN TAB PO SCH (09:01)
[2020-05-05] MEDS: POTASSIUM CHLORIDE 40 MEQ in SODIUM CHLORIDE 0.45 % 1,000 ML IV SCH (09:02)
--- NOTE | 2020-05-05 09:52 | Urology Progress Note ---
Date of Service May 05, 2020 Assessment & Plan (1) Ileus: Continue to advance diet as tolerated. OOB and Ambulate. Monitor drain output. Give serum levels of Cr in fluid, I have little suspicion for a bladder leak. Will consider removal of drains prior to discharge. (2) Hypokalemia: Continue K replacement therapy. Admission and Anticipated Discharge Date Admission Date: April 26, 2020 Subjective 74-year-old male postop day #8 status post robotic suprapubic prostatectomy. The patient's course was complicated by having his catheter fall out which was replaced with some difficulty and a CAT scan was done which showed that he did have some extravasation. Patient's course has also been complicated by abdominal distention. He was on a full liquid diet and has been having bowel movements that were loose and was tested for C. difficile was gene positive but toxin negative which after discussing this with micro suggest that he is not having active C. difficile but is at risk. Yesterday, both PIPE Cr were sent to lab. Both returned normal at 0.51 and 0.43. One PIPE continues to have a higher output compared to the other. He has continued to receive K replacement therapy. He has not had a BM for almost 18 hours. No fevers. No chills. Garcia draining clear urine. He is still very weak and his activity level is limited. Review of Systems Review of Systems: All systems reviewed & are unremarkable except as noted in HPI & below Physical Exam Constitutional: WD/WN, vitals as above Respiratory: normal respiratory effort, lungs clear to auscultation Cardiovascular: RRR, no murmur, no edema Genitourinary: Garcia in place. Urine clear. PIPE's in place. Fluid is se lucinda/light yellow. Results & Data ([facility]) Vital Signs (Past 12 Hours) Vital Signs Temp Pulse Pulse Resp BP Pulse Ox 05/05/20 08:07 36.9 C 75 18 136/72 93 05/05/20 07:30 76 05/05/20 03:06 36.8 C 81 16 156/76 H 90 05/05/20 00:35 75 05/04/20 23:15 36.5 C 64 18 146/76 H 96 PG Care Time/CCT Total # of Minutes Spent Total Time Spent with Patient: Total time spent is greater than 50% in coordination of care (as documented) at patient's floor/unit and/or counseling patient: Coding Level of Care Code 20249 Subseq Hosp Care Lvl 3 Diagnoses Ileus K56.7 Hypokalemia E87.6
[2020-05-05] MEDS ORDERED: POTASSIUM CHLORIDE CRTAB 20 MEQ TABCR PO STA (11:12)
--- NOTE | 2020-05-05 11:19 | Hospitalist Progress Note ---
Date of Service May 05, 2020 Assessment & Plan (1) Bradycardia: Brian is a 74-year-old male who is now POD-8 s/p robotic suprapubic prostatectomy, with a post-operative course notably complicated by accidental catheter dislodging on POD-1/2, frequent diarrhea (subsequently found to be a C. diff carrier), and hypokalemia. Additionally, on 05/04, he was found to have a ~10 second rhythm abnormality concerning for a second-degree AV block (Mobitz I vs. II), for which the medicine consult was consulted. He remains hemodynamically stable. Bradycardia (Resolved) - During 05/04 in the PM, telemetry demonstrated about 10 seconds of 2-1 AV Block c/f Mobitz II > I. Subsequently spontaneous return to sinus rhythm. Patient reports no symptoms during episode, and denies symptoms at present. Hypokalemic to 2.6 during timeframe with normal appearing Mg (2.0) in AM of 05/05. - Cardiology consulted d/t concern for Mobitz I vs. II. Appreciate insight and recommendations: - Unclear if Mobitz I or II at this time due to relatively brief event -- continue to monitor via Telemetry - Consider 30 day monitor at time of d/c - Supplement K PRN - Continue to monitor on telemetry, repleting K as needed Diarrhea - Clinically, patient reported diarrhea for several days that would happen pretty much every other hour while awake -- still had good appetite - C. 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 diff infection - Initiate vancomycin PO q.i.d. x 10 days - Thankfully, patient is reporting clinical improvement of this on exam today Hypokalemia (Resolving) - Likely 2/2 frequent, but now resolving, diarrhea - 05/04 K at 2.6 --> 05/05 K at 3.1 s/p 1/2NSS + KCl - 05/05: KCl 40mEq PO in AM and PM - Replete PRN -- hopefully will become less necessary as diarrhea continues to resolve and w/ good PO intake - BMP qAM Hypernatremia - Likely 2/2 dehydration from fluid losses - 05/05: Na at 126 s/p 1/2 NSS overnight - BMP qAM - Promote PO fluid intake Dispo: Med/surg w/ tele f/e/n: regular, no mIVF at present PPX: None currently -- consider restarting as appropriate. Encourage ambulation. Code: FULL CODE (2) Hypokalemia: (3) Diarrhea: (4) Hypernatremia: Admission and Anticipated Discharge Date Admission Date: April 26, 2020 Supervising Physician Co-Signing Physician Notes Attending Attestation: Pt seen & examined, chart reviewed, care plan d/w PGY1 Dr Ramiro Paz. I agree w/ the mustafa components of his documentation. Pt reports diarrhea is improved. No additional episodes of bradycardia today. No dyspnea, no cp. Mild incisional abd pain only. Not doing much in the way of ambulation. VSS, afebrile gen - NAD neck - no JVD heart - RRR, s1 s2 lungs - CTA b/l, minimal dry rales bases abd - soft NT; slightly distended; BS+ but decreased; several drains in place skin - incisions c/d/i abd wall ext - no edema Na 146 K 3.1 Cr wnl A/P: 1. hypernatremia - cont hypotonic fluids today; likely can d/c tomorrow; BMP am. 2. hypokalemia - 2nd diarrhea, recent restricted PO intake, etc - improving; supplement; repeat BMP am. Mag wnl. 3. ? c diff infection - gene+, toxin neg, but was having severe diarrhea prior. Reasonable to Rx w/ PO vanco. Day #1 today. plan 10 days. contact precautions. 4. DVT proph - need to d/w urology if ok to start lovenox daily. High risk of DVT given recent surgery. 5. POD #9, s/p Robotic Assisted Laparoscopic Simple Prostatectomy with Right Pelvic Lymph Node Dissection by Dr Floyd - path still pending 6. acute blood loss anemia - baseline Hb is 13.5; now 9.5; start ferrous sulfate supplementation. needs more ambulation PT, OT Serafin Pritchett MD Subjective Patient seen at the bedside this morning. On recap of his history, he reports that he has had significant diarrhea over the past several days, which is thankfully resolved since yesterday. He believes that the vancomycin is helped, although that was just started last night. He further denies any abdominal pain or nausea or vomiting. Endorses a good appetite. When asked about the Abnormal heart rhythm that was realized last night, the patient said that he was on the phone with his and did not realize anything was happeningdenied any lightheadedness, dizziness, shortness of breath, sensation of palpitations, or chest pressure. He notes that he has never really had a problem with his heart or any rhythm problems mentioned to him throughout his life. Review of Systems Review of Systems: As per HPI Physical Exam Constitutional: Well but tired appearing 74-year-old male who is lying back in his hospital Bed upon my arrival. Upon waking, he is freely conversive, alert, and oriented throughout her interaction. No acute distress. Respiratory: Good respiratory effort with symmetric expansion of the chest. Lungs are clear to auscultation bilaterally without crackles or wheezes. Cardiovascular: Normal rate and regular rhythm. S1 and S2 are present without murmurs rubs or gallops. Gastrointestinal (Abdomen): Normoactive bowel sounds. Abdomen is very mildly distended, but nontender to palpation. No rebound or guarding. Results & Data Results & Data ([facility]) Vital Signs (Past 12 Hours) Vital Signs Temp Pulse Pulse Resp BP Pulse Ox 05/05/20 08:07 36.9 C 75 18 136/72 93 05/05/20 07:30 76 05/05/20 03:06 36.8 C 81 16 156/76 H 90 05/05/20 00:35 75 Resident Activity Tracking Resident Involvement: Resident Care Provided Care Provided: Adult [facility] Medicine
--- NOTE | 2020-05-05 12:32 | Cardiology Consultation ---
Date of Consultation May 05, 2020 Assessment & Plan (1) Atrioventricular block: -brief episode noted on the monitor yesterday. -uncertain if this represents Mobitz type 1 versus Mobitz type 2. -would continue to observe on monitor. -consider 30 day event monitor at time of discharge. -agree with supplementing potassium. History of Present Illness Attending Physician: Prasanna Floyd, II, DO History of Present Illness Mr. Castillo is a 74-year-old male who underwent a robotically assisted laparoscopic prostatectomy on April 26. The patient developed an episode of 2-1 AV block yesterday prompting this consultation. The patient's recent history began with the surgery as described above. Soon after that procedure, the patient developed a sinus tachycardia and was transferred to the telemetry unit. After approximately 48 hours, his tachycardia resolved. However, while on the monitor yesterday, the patient developed a brief episode of 2-1 AV block. The patient was on the telephone with his at that time. He had no symptoms of dizziness or lightheadedness. The patient has never known of a cardiac event. He has never experienced exertional angina pectoris or limiting dyspnea. He further denies syncope, presyncope, PND orthopnea, palpitations, lower extremity edema, and claudication. Currently, patient is resting comfortably at bedside chair without complaints. Past medical and surgical history 1. Hypercholesterolemia 2. Nephrolithiasis 3. BPH 4. History of lithotripsy 5. Bilateral bunionectomy Social history and lives with his Quit tobacco use 50 years ago Social alcohol Family history No early coronary artery disease Review of systems A 10 point review systems undertaken and negative except for that described above. Allergies Allergy/AdvReac Type Severity Reaction Status Date / Time No Known Allergies Allergy Verified 04/12/20 14:33 Home Medications Medication Instructions Recorded Confirmed Type multivitamin 1 tab PO DAILY 02/13/20 04/26/20 History finasteride 5 mg PO DAILY 30 Days #30 tab 02/15/20 04/26/20 Rx paroxetine HCl 20 mg PO DAILY 30 Days #30 tab 02/15/20 04/26/20 Rx tamsulosin 0.4 mg PO DAILY 30 Days #30 cap 02/15/20 04/26/20 Rx Patient History Medical History Anxiety Bladder stone BPH (benign prostatic hyperplasia) Elevated PSA History of kidney stones Hyperlipidemia Lymph node enlargement Surgical History H/O lithotripsy H/O prostate biopsy History of bunionectomy R/L History of colonoscopy [place] teeth removed Family History Father , age 67 Prostate cancer Lung cancer Colorectal cancer Brother Prostate cancer Mother Family history of diabetes mellitus Other No family history of adverse response to anesthesia Social History Smoking Status: Former smoker Second Hand Exposure: Yes; Hx Alcohol Use: Yes Alcohol type: beer, wine and hard liquor Alcohol Intake Frequency: 2-4 x/Month Hx Substance Use: No Preferred Language: [place] Communication Ability: Effective Termite Control Servicer Required: No Beliefs That Will Affect Care: None marital status: marital status details: 2nd marriage Current Living Situation: Spouse Current Living Situation Comment: lives in [place]; just recently moved from [place] current occupational status: retired 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 HEENT exam is negative. Neck is supple with full carotid upstrokes. There are no carotid bruits. Jugular venous pressure is flat at 90. There is no thyromegaly. Cardiovascular exam reveals a regular rhythm with a normal S1 and S2. No S3, S4, or murmurs are noted. Lungs are clear wit hout rales, rhonchi, or wheezes. Abdomen is soft and nontender without bruits. Extremities reveal intact radial artery and posterior tibial pulses bilaterally. There is no peripheral edema. Results & Data ([facility]) Vital Signs (Past 12 Hours) Vital Signs Temp Pulse Pulse Resp BP Pulse Ox 05/05/20 08:07 36.9 C 75 18 136/72 93 05/05/20 07:30 76 05/05/20 03:06 36.8 C 81 16 156/76 H 90 05/05/20 00:35 75 Laboratory Results CBC notes hemoglobin of 9.5, hematocrit 29.3, white count 7.15, platelet count [id number]. Electrolytes note a sodium of 146, potassium 3.1, chloride 108, bicarb 31, BUN 5, creatinine 0.48, and glucose 101. Diagnostic Findings Initial EKG noted sinus tachycardia with a nonspecific ST and T-wave abnormality. Follow-up tracing notes sinus rhythm without significant abnormalities. Review of environmental monitoring specialist notes 1 short episode of 2-1 AV block. PG Care Time/CCT Total # of Minutes Spent Total Time Spent with Patient: Total time spent is greater than 50% in coordination of care (as documented) at patient's floor/unit and/or counseling patient: Coding Level of Care Code 00456 Initial Inpt Care Lvl 3 Diagnoses Atrioventricular block I44.30
--- NOTE | 2020-05-05 13:31 | Electrocardiogram Report ---
Test Reason : Blood Pressure : / mmHG Vent. Rate : 074 BPM Atrial Rate : 074 BPM P-R Int : 132 ms QRS Dur : 092 ms QT Int : 404 ms P-R-T Axes : 037 028 067 degrees QTc Int : 448 ms Normal sinus rhythm with sinus arrhythmia Normal ECG When compared with ECG of 27-APR-2020 20:24, Vent. rate has decreased BY 51 BPM Confirmed by Kg Odonnell ([id number]) on 05/05/2020 1:30:33 PM Referred By: Prasanna Floyd Confirmed By:Kg Odonnell
[2020-05-05] MEDS: FERROUS SULFATE 325 MG TAB PO SCH (14:54)
[2020-05-05] MEDS ORDERED: POTASSIUM CHLORIDE CRTAB 20 MEQ TABCR PO ONE (16:00)
--- NOTE | 2020-05-05 20:45 | Billing Data ---
Date of Service May 05, 2020 Coding Level of Care Code 77692 Subseq Hosp Care Lvl 2
[2020-05-06] MEDS: VANCOMYCIN HCL 125 MG/2.5ML SOLN PO SCH ×5 (00:09→23:59)
[2020-05-06] MEDS: RASPBERRY SYRUP 5 ML UDP PO SCH ×5 (00:09→23:59)
[2020-05-06] MEDS: POTASSIUM CHLORIDE 40 MEQ in SODIUM CHLORIDE 0.45 % 1,000 ML IV SCH (00:13)
--- NOTE | 2020-05-06 08:37 | Urology Progress Note ---
Date of Service May 06, 2020 Assessment & Plan (1) Ileus: Continue regular diet. Monitor drain output. Give serum levels of Cr in fluid, I have little suspicion for a bladder leak. Will consider removal of drains prior to discharge. Emphasis on ambulation and regaining strength. (2) Hypokalemia: Continue K replacement therapy. Admission and Anticipated Discharge Date Admission Date: April 26, 2020 Subjective 74-year-old male postop day #9 status post robotic suprapubic prostatectomy. The patient's course was complicated by having his catheter fall out which was replaced with some difficulty and a CAT scan was done which showed that he did have some extravasation. Patient's course has also been complicated by ab dominal distention. He was on a full liquid diet and has been having bowel movements that were loose and was tested for C. difficile was gene positive but toxin negative which after discussing this with micro suggest that he is not having active C. difficile but is at risk. No acute events overnight. Tolerating a diet. Still feels weak and struggles to get OOB and ambulate. Drains with clear drainage. Moderate output from upper drain. No fevers. No chills. Review of Systems Review of Systems: All systems reviewed & are unremarkable except as noted in HPI & below Physical Exam Constitutional: WD/WN, vitals as above Respiratory: normal respiratory effort, lungs clear to auscultation Cardiovascular: RRR, no murmur, no edema Results & Data ([facility]) Vital Signs (Past 12 Hours) Vital Signs Temp Pulse Pulse Resp BP Pulse Ox 05/06/20 07:28 73 05/06/20 07:15 36.6 C 65 16 132/72 94 05/06/20 03:33 36.6 C 69 18 133/64 97 05/05/20 23:47 73 05/05/20 23:31 36.8 C 75 18 143/70 H 94 PG Care Time/CCT Total # of Minutes Spent Total Time Spent with Patient: Total time spent is greater than 50% in coordination of care (as documented) at patient's floor/unit and/or counseling patient: Coding Level of Care Code 85534 Subseq Hosp Care Lvl 3 Diagnoses Ileus K56.7 Hypokalemia E87.6
[2020-05-06 08:57] LABS: Basophils # (auto) 0.03 K/uL (0-0.2); Basophils % (auto) 0.3 %; Eosinophils # (auto) 0.32 K/uL (0-0.5); Eosinophils % (auto) 3.1 %; Hematocrit (blood only) 32.7 % (42-52); Hemoglobin 10.8 g/dL (14.0-18.0); Immature Granulocytes # (auto) 0.16 K/uL (0.00-0.02); Immature Granulocytes % (auto) 1.5 %; Lymphocytes # (auto) 1.51 K/uL (1.2-3.4); Lymphocytes % (auto) 14.4 %; Mean Corpuscular Hemoglobin 29.9 pg (25-34); Mean Corpuscular Volume 90.6 fL (80-100); Mean Platelet Volume 10.8 fL (7.4-10.4); Monocytes # (auto) 0.62 K/uL (0.11-0.59); Monocytes % (auto) 5.9 %; Neutrophils # (auto) 7.82 K/uL (1.4-6.5); Neutrophils % (auto) 74.8 %; Platelet Count 232 K/uL (130-400); RDW Coefficient of Variation 15.2 % (11.5-14.5); RDW Standard Deviation 50.2 fL (36.4-46.3); Red Blood Count 3.61 M/uL (4.7-6.1); White Blood Count 10.46 K/uL (4.8-10.8)
[2020-05-06 09:18] LABS: Calcium 8.4 mg/dl (8.5-10.1); Creatinine Clr Calc Pharmacy 103.9 ml/min; Est GFR (African American) 114.1; Est GFR (Non-African American) 98.5
[2020-05-06] MEDS: FERROUS SULFATE 325 MG TAB PO SCH (09:29)
[2020-05-06] MEDS: MULTIVITAMIN TAB PO SCH (09:29)
[2020-05-06] MEDS: MAGNESIUM OXIDE 400 MG TAB PO SCH (09:29)
[2020-05-06] MEDS: PARoxetine HCL 20 MG TAB PO SCH (09:29)
--- NOTE | 2020-05-06 14:24 | Hospitalist Progress Note ---
Date of Service May 06, 2020 Assessment & Plan (1) Bradycardia: Brian is a 74-year-old male who is now POD-8 s/p robotic suprapubic prostatectomy, with a post-operative course notably complicated by accidental catheter dislodging on POD-1/2, frequent diarrhea (subsequently found to be a C. diff carrier), and hypokalemia. Additionally, on 05/04, he was found to have a ~10 second rhythm abnormality concerning for a second-degree AV block (Mobitz I vs. II), for which the medicine consult was consulted. He remains hemodynamically stable. Bradycardia, resolved - During 05/04 in the PM, telemetry demonstrated about 10 seconds of 2-1 AV Block c/f Mobitz II > I. Subsequently spontaneous return to sinus rhythm. Patient reports no symptoms during episode, and denies symptoms at present. Hypokalemic to 2.6 during timeframe with normal appearing Mg (2.0) in AM of 05/05. - Cardiology consulted d/t concern for Mobitz I vs. II. Appreciate insight and recommendations: - Unclear if Mobitz I or II at this time due to relatively brief event -- continue to monitor via Telemetry - Consider 30 day monitor at time of d/c - Supplement K PRN - Continue to monitor on telemetry, repleting K as needed Diarrhea, resolving - Clinically, patient reported diarrhea for several days that would happen pretty much every other hour while awake -- still had good appetite - C. diff testing did return as a carrier state -- however, given frequency and intensity of diarrhea, possibly more motor vehicle representative of a mild C. diff infection - Continue vancomycin PO q.i.d. x 10 days - Patient is continuing to report clinical improvement of this on exam today Hypokalemia, resolved - K 4.0 today - Likely 2/2 frequent, but now resolving, diarrhea - Improved s/p IVFs and PO repletion as well - Replete PRN - BMP daily Hypernatremia, resolved - Na 143 today - Likely 2/2 dehydration from fluid losses - Improved s/p IVFs and improved PO intake - BMP daily as mentioned above - Promote PO fluid intake FEN/GI: regular, no IVFs PPX: SCDs and Lovenox 40mg SQ QAM Code: Full code Dispo: Med/surg w/ tele, will consider signing off tomorrow if no further changes (2) Hypokalemia: (3) Diarrhea: (4) Hypernatremia: Admission and Anticipated Discharge Date Admission Date: April 26, 2020 Supervising Physician Co-Signing Physician Notes Attending Attestation: Pt seen & examined, chart reviewed, care plan d/w PGY1 Dr Dickson Moore. I agree w/ the mustafa components of his documentation. Pt was well during my bedside rounds. He again told me, however, that he spent most of the day in bed. Very little activity. Denies dyspnea. Tolerating diet. Minimal abd pain. Tele - no dysrhythmia or block overnight. VSS, afebrile gen - NAD, a/o x 3 mouth - MMM heart - RRR,s1, s2 lungs - cta b/l abd - soft NT BS+ ext - no edema skin - abd incisions c/d/i Na wnl K wnl A/P: 1. hypernatremia - resolved 2. hypokalemia - resolved 3. diarrhea - resolved 4. c diff infection - likely cause of #3 - cont vanco PO x 10 days 5. recent brief run of possible Mobitz type 2 - outpatient 30-day event monitor advised increase activity sit in chair PT, OT evals requested Serafin Pritchett MD Subjective No acute events overnight. Denies fever/chills, chest pain, palpitations, cough, SOB, N/V, abdominal pain. Review of Systems Review of Systems: Pertinent positives and negatives mentioned in HPI. Physical Exam Constitutional: WD/WN, vitals as above Respiratory: normal respiratory effort, lungs clear to auscultation Cardiovascular: RRR, no murmur, no edema Gastrointestinal (Abdomen): normal bowel sounds, soft, nontender, no hepatosplenomegaly incisions c/d/i Skin: no rashes, warm and dry Psychiatric: A+Ox3, euthymic affect Genitourinary: PIPE drains in place Results & Data Results & Data ([facility]) Vital Signs (Past 12 Hours) Vital Signs Temp Pulse Pulse Resp BP Pulse Ox 05/06/20 07:28 73 05/06/20 07:15 36.6 C 65 16 132/72 94 05/06/20 03:33 36.6 C 69 18 133/64 97 Resident Activity Tracking Resident Involvement: Resident Care Provided Care Provided: Adult Hospital Medicine
[2020-05-06] MEDS: ENOXAPARIN INJ 40 MG/0.4 ML SYR SQ SCH (14:30)
[2020-05-06] MEDS ORDERED: SODIUM CHLOR 0.45% + 20MEQ KCL 20 MEQ/1,000 ML BAG IV SCH (17:30)
[2020-05-06] MEDS ORDERED: ENOXAPARIN INJ 40 MG/0.4 ML SYR SQ ONE (19:52)
[2020-05-07] MEDS: RASPBERRY SYRUP 5 ML UDP PO SCH ×3 (05:58→17:05)
[2020-05-07] MEDS: VANCOMYCIN HCL 125 MG/2.5ML SOLN PO SCH ×3 (05:59→17:05)
[2020-05-07 08:23] LABS: Basophils # (auto) 0.02 K/uL (0-0.2); Basophils % (auto) 0.2 %; Eosinophils % (auto) 2.5 %; Hemoglobin 10.8 g/dL (14.0-18.0); Immature Granulocytes % (auto) 1.6 %; Lymphocytes # (auto) 1.14 K/uL (1.2-3.4); Lymphocytes % (auto) 9.4 %; Mean Corpuscular Hemoglobin 29.8 pg (25-34); Mean Corpuscular Hgb Conc 32.7 g/dL (32-36); Mean Corpuscular Volume 90.9 fL (80-100); Mean Platelet Volume 10.7 fL (7.4-10.4); Monocytes # (auto) 0.65 K/uL (0.11-0.59); Monocytes % (auto) 5.3 %; Neutrophils # (auto) 9.87 K/uL (1.4-6.5); Platelet Count 238 K/uL (130-400); RDW Coefficient of Variation 15.3 % (11.5-14.5); RDW Standard Deviation 49.9 fL (36.4-46.3); Red Blood Count 3.63 M/uL (4.7-6.1); White Blood Count 12.18 K/uL (4.8-10.8)
[2020-05-07 08:57] LABS: BUN Creatinine Ratio 16.6 (10-20); Calcium 8.5 mg/dl (8.5-10.1); Creatinine Clr Calc Pharmacy 107.6 ml/min; Est GFR (African American) 119.8; Est GFR (Non-African American) 103.3; Potassium 3.7 mmol/L (3.5-5.1)
[2020-05-07] MEDS: FERROUS SULFATE 325 MG TAB PO SCH (09:02)
[2020-05-07] MEDS: MULTIVITAMIN TAB PO SCH (09:02)
[2020-05-07] MEDS: MAGNESIUM OXIDE 400 MG TAB PO SCH (09:02)
[2020-05-07] MEDS: PARoxetine HCL 20 MG TAB PO SCH (09:02)
[2020-05-07] MEDS: ENOXAPARIN INJ 40 MG/0.4 ML SYR SQ SCH (09:03)
--- NOTE | 2020-05-07 10:51 | Urology Progress Note ---
Date of Service May 07, 2020 Assessment & Plan (1) BPH (benign prostatic hyperplasia): (2) Ileus: (3) Hypokalemia: 74 yo M POD #10 s/p robotic assisted laparoscopic simple prostatectomy with a post-op course notably complicated by accidental catheter dislodging on POD-1/2, frequent diarrhea (subsequently found to be a C. diff carrier), and hypokalemia. - Patient remains afebrile. - Labs reviewed, remains hemodynamically stable - Maintain PIPE drains, will consider removal of drains prior to discharge. - Continue Jones catheter. - Continue with supportive care and antibiotics per hospitalist team. - Encourage ambulation. - Will continue to follow closely. Admission and Anticipated Discharge Date Admission Date: April 26, 2020 Subjective 74 yo M POD #10 s/p robotic assisted laparoscopic simple prostatectomy with right pelvic lymph node dissection with a post-operative course notably complicated by accidental catheter dislodging on POD-1/2, frequent diarrhea (subsequently found to be a C. diff carrier), and hypokalemia. Patient examined at bedside this AM. Awake, sitting up in chair at time of assessment. Denies any pain or discomfort at this time. Tolerating diet, no nausea or vomiting. Jones intact, patent and draining clear yellow urine. PIPE intact x2, with clear, yellow drainage. Ambulating without difficulty, uses walker. No fever or chills. 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 Chart review: Afebrile WBC 12.18 Hgb 10.8 Cr 0.56 Jones output overnight 1400 mL PIPE #1 output overnight - 100mL PIPE#2 output overnight - 0 mL C. diff positive gene, negative toxin On PO Vanco Denies additional urologic concerns today. Review of Systems Constitutional: as per Subjective / HPI Gastrointestinal: as per Subjective / HPI Genitourinary: + as per Subjective / HPI Musculoskeletal: as per Subjective / HPI Physical Exam Constitutional: well developed and well nourished; no acute distress Respiratory: normal respiratory effort and able to speak in complete sentences Cardiovascular: Extremities: no calf tenderness and no pedal edema Gastrointestinal (Abdomen): Inspection/Auscultation: + abdominal surgical incision (Surgical incisions well approximated, margret intact, PIPE drain x2 intact) Percussion/Palpation: abdomen soft; abdomen nontender and no guarding Musculoskeletal: Head/Neck/Chest: normocephalic Skin: no rashes, warm and dry Neurologic: moves all extremities and awake Psychiatric: Orientation: alert, oriented x 3 and cooperative Genitourinary: Jones catheter intact, patent, and draining clear yellow urine Results & Data ([facility]) Vital Signs (Past 12 Hours) Vital Signs Temp Pulse Pulse Resp BP BP Pulse Ox 05/07/20 07:26 36.7 C 72 16 132/72 94 05/07/20 07:15 94 H 05/07/20 02:58 36.8 C 72 18 131/68 94 05/07/20 02:25 80 PG Care Time/CCT Total # of Minutes Spent Total Time Spent with Patient: Total time spent is greater than 50% in coordination of care (as documented) at patient's floor/unit and/or counseling patient: Coding Level of Care Code 49261 Subseq Hosp Care Lvl 2 Diagnoses BPH (benign prostatic hyperplasia) N40.1; R33.8 Lower urinary tract symptom detail: urinary retention Lower urinary tract symptom presence: symptoms present Ileus K56.7 Hypokalemia E87.6 (1) BPH (benign prostatic hyperplasia) Lower urinary tract symptom detail: urinary retention Lower urinary tract symptom presence: symptoms present Qualified Code(s): N40.1 - Benign prostatic hyperplasia with lower urinary tract symptoms; R33.8 - Other retention of urine
--- NOTE | 2020-05-07 11:29 | Hospitalist Progress Note ---
Date of Service May 07, 2020 Assessment & Plan (1) Bradycardia: Brian is a 74-year-old male who is now POD-8 s/p robotic suprapubic prostatectomy, with a post-operative course notably complicated by accidental catheter dislodging on POD-1/2, frequent diarrhea (subsequently found to be a C. diff carrier), and hypokalemia. Additionally, on 05/04, he was found to have a ~10 second rhythm abnormality concerning for a second-degree AV block (Mobitz I vs. II), for which the medicine consult was consulted. He remains hemodynamically stable. Bradycardia, resolved - During 05/04 in the PM, telemetry demonstrated about 10 seconds of 2-1 AV Block c/f Mobitz II > I. Subsequently spontaneous return to sinus rhythm. Patient reports no symptoms during episode, and denies symptoms at present. Hypokalemic to 2.6 during timeframe with normal appearing Mg (2.0) in AM of 05/05. - Cardiology consulted d/t concern for Mobitz I vs. II. Appreciate insight and recommendations: - Unclear if Mobitz I or II at this time due to relatively brief event -- continue to monitor via Telemetry - Will write a paper prescription for a 30d event monitor tomorrow morning before patient is discharged. - Continue to monitor on telemetry, repleting K as needed Diarrhea, resolving - Clinically, patient reported diarrhea for several days that would happen pretty much every other hour while awake -- still had good appetite - C. 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 diff infection - Continue vancomycin PO q.i.d. x 10 days - Patient is continuing to report clinical improvement of this on exam today Hypokalemia, resolved - K 4.0 today - Likely 2/2 frequent, but now resolving, diarrhea - Improved s/p IVFs and PO repletion as well - Replete PRN - BMP daily Hypernatremia, resolved - Na 143 today - Likely 2/2 dehydration from fluid losses - Improved s/p IVFs and improved PO intake - BMP daily as mentioned above - Promote PO fluid intake FEN/GI: regular, no IVFs PPX: SCDs and Lovenox 40mg SQ QAM Code: Full code Dispo: Med/surg w/ tele, will consider signing off tomorrow if no further changes (2) Hypokalemia: (3) Diarrhea: (4) Hypernatremia: Admission and Anticipated Discharge Date Admission Date: April 26, 2020 Supervising Physician Co-Signing Physician Notes I also saw the patient and confirmed mustafa portions of the history and physical examination. I agree with the impression and plan as noted in the resident documentation. He is feeling quite well today. He has been ambulatory without difficulty. He reports no diarrhea. No recurrent episodes of bradycardia on review of telemetry. Blood pressure 115/79, pulse 79, temperature 36.8, pulse oximetry 90% on room air. Heart regular rate and rhythm Respirations nonlabored WBC 12.1, hemoglobin 10.8 BUN 9, creatinine 0.56 Sodium has now normalized at 141. Potassium 3.7 Hypernatremia BMP looks good today Discontinue IV fluids Hypokalemia Resolved Bradycardia, resolved Consider event monitor as outpatient This was discussed with patient Diarrhea, improving C. difficile infection first carrier state Oral vancomycin x10 days DVT prophylaxis Enoxaparin 40 mg daily Medicine will sign off for now. Please let us know if need arises and we will see him again. Subjective Patient seen at the bedside this morning. He feels well this morning and has no complaints. No events overnight. Denies chest pain, shortness of breath, dizziness, lightheadedness, or palpitations. Review of Systems Constitutional: no fever, no chills and no fatigue Respiratory: no cough, no dyspnea and no pain on inspiration Cardiovascular: no chest pain, no palpitations, no lightheadedness, no syncope, no edema and no calf pain Gastrointestinal: no abdominal pain, no nausea and no vomiting Physical Exam Constitutional: no acute distress and not ill appearing Respiratory: normal respiratory effort, lungs clear to auscultation Cardiovascular: RRR, no murmur, no edema Results & Data Results & Data ([facility]) Vital Signs (Past 12 Hours) Vital Signs Temp Pulse Pulse Resp BP BP Pulse Ox 05/07/20 11:25 36.7 C 72 16 113/70 94 05/07/20 07:26 36.7 C 72 16 132/72 94 05/07/20 07:15 94 H 05/07/20 02:58 36.8 C 72 18 131/68 94 05/07/20 02:25 80 Resident Activity Tracking Resident Involvement: Resident Care Provided Care Provided: Adult [facility]
[2020-05-08] MEDS: VANCOMYCIN HCL 125 MG/2.5ML SOLN PO SCH ×4 (01:44→17:49)
[2020-05-08] MEDS: RASPBERRY SYRUP 5 ML UDP PO SCH ×4 (01:44→17:49)
[2020-05-08] MEDS: ENOXAPARIN INJ 40 MG/0.4 ML SYR SQ SCH (08:59)
[2020-05-08] MEDS: MAGNESIUM OXIDE 400 MG TAB PO SCH (08:59)
[2020-05-08] MEDS: PARoxetine HCL 20 MG TAB PO SCH (09:00)
[2020-05-08] MEDS: MULTIVITAMIN TAB PO SCH (09:00)
[2020-05-08] MEDS: FERROUS SULFATE 325 MG TAB PO SCH (09:00)
--- NOTE | 2020-05-08 11:59 | Urology Progress Note ---
Date of Service May 08, 2020 Assessment & Plan (1) BPH (benign prostatic hyperplasia): (2) Ileus: 74 yo M POD #11 s/p robotic assisted laparoscopic simple prostatectomy with a post-op course notably complicated by accidental catheter dislodging on POD-1/2, frequent diarrhea (subsequently found to be a C. diff carrier), and hypokalemia. - Doing well, clinically progressing. - Remains afebrile. - Will d/c PIPE #2 now. - Maintain PIPE #1, continue to monitor output, will likely remove later today or tomorrow. - Continue Jones catheter. - Continue with supportive care and antibiotics per hospitalist team. - Encourage ambulation. - Will continue to follow -If patient continues to do well, likely home tomorrow or . Admission and Anticipated Discharge Date Admission Date: April 26, 2020 Subjective 74 yo M POD #11 s/p robotic assisted laparoscopic simple prostatectomy with right pelvic lymph node dissection with a post-operative course notably co mplicated by accidental catheter dislodging on POD-1/2, frequent diarrhea (subsequently found to be a C. diff carrier), and hypokalemia. Patient examined at bedside this AM. Awake, resting in bed on arrival. Denies any pain or discomfort at this time. Tolerating diet, no nausea or vomiting. Jones intact, patent and draining clear yellow urine. PIEP intact x2, with small amount of clear, yellow drainage. Ambulating with walker No fever or chills. Continues on monitoring manager. Chart review: Afebrile WBC 12.18 (05/07) Hgb 10.8 (05/07) Cr 0.56 (05/07) Jones output overnight 800 mL PIPE output overnight- 140ml C. diff positive gene, negative toxin On PO Vanco Denies additional urologic concerns today. Review of Systems Constitutional: as per Subjective / HPI Gastrointestinal: as per Subjective / HPI Genitourinary: + as per Subjective / HPI Neurologic: as per Subjective / HPI Physical Exam Constitutional: well developed and well nourished; no acute distress Respiratory: normal respiratory effort and able to speak in complete sentences Cardiovascular: Extremities: no calf tenderness and no pedal edema Gastrointestinal (Abdomen): Inspection/Auscultation: + abdominal surgical incision (Surgical incisions well approximated, margret intact, PIPE drain x2 intact) Percussion/Palpation: abdomen soft; abdomen nontender and no guarding Musculoskeletal: Head/Neck/Chest: normocephalic Skin: no rashes, warm and dry Neurologic: moves all extremities and awake; not confused Psychiatric: Orientation: alert, oriented x 3 and cooperative Genitourinary: Jones catheter intact, patent, and draining clear yellow urine Results & Data ([facility]) Vital Signs (Past 12 Hours) Vital Signs Temp Pulse Pulse Pulse Resp BP Pulse Ox 05/08/20 11:27 36.9 C 75 18 107/66 94 05/08/20 07:47 67 05/08/20 07:35 76 18 118/74 96 05/08/20 05:33 36.8 C 77 18 134/73 97 05/08/20 00:00 74 PG Care Time/CCT Total # of Minutes Spent Total Time Spent with Patient: Total time spent is greater than 50% in coordination of care (as documented) at patient's floor/unit and/or counseling patient: Coding Level of Care Code 56928 Subseq Hosp Care Lvl 2 Diagnoses BPH (benign prostatic hyperplasia) N40.1; R33.8 Lower urinary tract symptom detail: urinary retention Lower urinary tract symptom presence: symptoms present Ileus K56.7 (1) BPH (benign prostatic hyperplasia) Lower urinary tract symptom detail: urinary retention Lower urinary tract symptom presence: symptoms present Qualified Code(s): N40.1 - Benign prostatic hyperplasia with lower urinary tract symptoms; R33.8 - Other retention of urine
[2020-05-09] MEDS: RASPBERRY SYRUP 5 ML UDP PO SCH ×3 (00:21→15:03)
[2020-05-09] MEDS: VANCOMYCIN HCL 125 MG/2.5ML SOLN PO SCH ×3 (00:21→15:03)
[2020-05-09 06:23] LABS: Creatinine Clr Calc Pharmacy 109.6 ml/min; Est GFR (African American) 120.7; Est GFR (Non-African American) 104.1
--- NOTE | 2020-05-09 08:32 | Urology Progress Note ---
Date of Service May 09, 2020 Assessment & Plan (1) BPH (benign prostatic hyperplasia): Status post robotic simple prostatectomy Prolonged hospital course First drain removed yesterday, PIPE creatinine on both drains checked 5 days agoboth were serum Second drain will be removed today, home today with Jones catheter in place Admission and Anticipated Discharge Date Admission Date: April 26, 2020 Subjective Subjectively reports that he is doing extremely well He reports no diarrhea overnight, has had flatus Tolerating a diet No pain No catheter related issues First drain was removed yesterday, no change in overall feeling, modest output from the remaining drainremains serous Physical Exam Physical Exam: Urine clear, drain output serous, incisions appropriate Constitutional: well developed and well nourished Respiratory: no respiratory distress Cardiovascular: Extremities: no pedal edema Gastrointestinal (Abdomen): Inspection/Auscultation: abdomen normal to inspection Results & Data ([facility]) Vital Signs (Past 12 Hours) Vital Signs Temp Pulse Pulse Pulse Resp BP Pulse Ox 05/09/20 07:52 36.8 C 62 16 124/71 94 05/09/20 07:34 76 05/09/20 04:00 36.6 C 67 18 118/73 95 05/09/20 00:00 70 05/08/20 23:00 37.1 C 74 18 117/68 94 PG Care Time/CCT Total # of Minutes Spent Total Time Spent with Patient: Total time spent is greater than 50% in coordination of care (as documented) at patient's floor/unit and/or counseling patient: Coding Level of Care Code 09337 Subseq Hosp Care Lvl 2 Diagnoses BPH (benign prostatic hyperplasia) N40.1; R33.8 Lower urinary tract symptom presence: symptoms present Lower urinary tract symptom detail: urinary retention (1) BPH (benign prostatic hyperplasia) Lower urinary tract symptom presence: symptoms present Lower urinary tract symptom detail: urinary retention Qualified Code(s): N40.1 - Benign prostatic hyperplasia with lower urinary tract symptoms; R33.8 - Other retention of urine
[2020-05-09] MEDS: ENOXAPARIN INJ 40 MG/0.4 ML SYR SQ SCH (08:39)
[2020-05-09] MEDS: PARoxetine HCL 20 MG TAB PO SCH (08:40)
[2020-05-09] MEDS: FERROUS SULFATE 325 MG TAB PO SCH (08:40)
[2020-05-09] MEDS: MAGNESIUM OXIDE 400 MG TAB PO SCH (08:40)
[2020-05-09] MEDS: MULTIVITAMIN TAB PO SCH (08:41)
[2020-05-09 11:53] VITALS: TEMP 98.1; O2SAT 95
[2020-05-09 14:21] VITALS: BP 132/72; PULSE 62
--- NOTE | 2020-05-10 09:23 | Billing Data ---
Date of Service May 06, 2020 Coding Level of Care Code 28613 Subseq Hosp Care Lvl 2
--- NOTE | 2020-05-14 12:27 | Coding Query ---
Your help is needed for correct coding of this account; please clarify if the patients Ileus was: (X) expected out of the surgery Short post operative episode requiring no additional resources and without needing to deviate from normal postoperative care ( ) unexpected complication from the surgery ( )other please specify Thank you Clare MURO
--- NOTE | 2020-05-17 12:04 | Discharge Summary ---
Date of Service May 17, 2020 Admission HPI Per Admitting Provider See H&P Admission Exam Per Admitting Provider See H&P Principal Diagnosis BPH with obstruction Gross Hematuria Urinary retention Discharge Exam General: Alert in no acute distress. HEENT: Normocephalic Atraumatic. Inspection normal. Psychologic: Normal affect. Skin: [place] and Dry. No rashes or visible lesions. Abdomen: Soft Non-distended. No rebound or guarding. : Jones in place draining clear yellow urine. Discharge Data Allergies Allergy/AdvReac Type Severity Reaction Status Date / Time No Known Allergies Allergy Verified 04/12/20 14:33 Consultations 04/27/20 16:14 Consult Hospitalist Routine 05/04/20 16:45 Consult Hospitalist Routine 05/04/20 18:09 Consult Cardiology Routine Procedures Performed Operation Date: 04/26/20 08:30 Actual Procedures p Robotic Assisted Laparoscopic Simple Prostatectomy, Bilateral Pelvic Lymph Node Dissection(Not Applicable) - Prasanna Floyd DO Operation Date: 05/01/20 12:00 <No data on this case meets the specified criteria> Ordered Studies 04/28/20 17:35 CT angio chest PE protocol Routine 04/30/20 10:00 CT abdomen pelvis wo/w con Routine Hospital Course (1) BPH (benign prostatic hyperplasia): Status post robotic simple prostatectomy for retention and gross hematuria. Prolonged hospital course due to multiple issues. Massive prostate with severe retention. Patient had multiple issues in the first two days by dislodging catheter. Catheter completely fell out on day 3. Developed ileus with decreased activity. Slowly recovered. First drain removed yesterday, PIPE creatinine on both drains checked 5 days agoboth were serum Second drain will be removed today, home today with Jones catheter in place Total Time Total Time Spent Total Time Spent (In Minutes): 10 minutes Total Time Includes: Examination of the Patient, Discharge Planning, Medication Reconciliation and Communication With Other Providers Discharge Plan Discharge Items Patient Disposition: Home - Home Health Services Reason For Visit: Enlarged Prostate, Hematuria Gross, Elevated PSA Discharge Diagnosis: Enlarged Prostate, Hematuria Gross, Elevated PSA Activity: Per Instructions section Lifting: No more than 25 pounds Bathing Comment: No tub baths or soaks. Ok to shower 1 day after discharge. Sexual Activity: Wait until after follow-up appointment Exercise/Sports: Wait until after follow-up appointment Driving/Machine Use: Do not drive while taking prescription pain medication. Non-emergency contact: Surgeon and Urologist Call non-emergency contact if: your pain is not controlled, you have a fever, your temperature is above 101, your wound has increased redness, your wound has increased drainage and your wound pain has increased Follow-up/Referrals: PCP,NO [Primary Care Provider] - Diet: Regular Addtl Attending Provider Instructions: Please take all medications as prescribed and keep all follow-ups as scheduled. Please call our office at [phone] with any questions, concerns or need to reschedule appointments for any reason. We are happy to assist you Activity: We recommend having someone with you for the first few days after surgery to help care for you. For the first 2 weeks after surgery, we would like you to get up and walk around your house. However, we recommend limit physical activity that would increase your heart rate. This will allow your body to rest and heal. Take naps if you feel tired. Don't lift anything heavier than 10 pounds, mow the law or ride a bicycle until your follow-up appointment. Please avoid long car rides. Home Care: Unless directed otherwise, drink 6 to 8 glasses of water a day (enough to keep your urine light colored). This will also help keep a healthy flow of urine. We recommend using a stool softener for the first two weeks to avoid constipation. Jones Catheter or Suprapubic Catheter care: Keep the catheter well secured with either a leg back or leg strap with large bag. Empty your bag when it's about half full. You may notice some blood in the bag. This is normal after surgery and while the catheter is in place. Use mild soap (such as Dove or Dial) and water to wash the catheter and the head of your penis daily, or more frequently if needed. Return to your normal diet, we encourage good protein intake to promote heali ng. You may shower as normal. Please avoid tub baths or soaking until catheter removed and incisions well healed. Wearing sweat pants while you have the catheter is recommended, they will be more comfortable. Follow-up Your follow up appointments for having your catheter removed, and follow up with your physician should already be scheduled. If you have any questions regarding this, please contact our office. Your final pathology report will be discussed at your physician follow-up appointment. Call [facility] at [phone] right away if you have any of the following: Chest pain or trouble breathing (call 911 or go to the hospital) Fever of 101F or higher, uncontrolled vomiting Heavy bleeding, clots, or bright red blood from the catheter Catheter that falls out or stops draining Foul-smelling discharge from your catheter Redness, swelling, warmth, or increased pain at your incision site Drainage, pus, or bleeding from your incision Pending Studies at Discharge: Yes Studies:: Pathology Stand-Alone Forms: My [facility] Adly, Smoking Cessation Medications and DC Order Prescriptions: New docusate sodium [Colace] 100 mg capsule 100 mg PO BID Qty: 60 RF: 0 Continued multivitamin Tablet 1 tab PO DAILY RF: 0 tamsulosin 0.4 mg capsule 0.4 mg PO DAILY 30 Days Qty: 30 RF: 0 finasteride 5 mg tablet 5 mg PO DAILY 30 Days Qty: 30 RF: 0 paroxetine HCl 20 mg tablet 20 mg PO DAILY 30 Days Qty: 30 RF: 1 Discharge Orders: Discharge Order (Routine); Ordered 05/09/20 Ordered By: Prema Martines Admission Data Admit Date/Time: 04/26/20 16:19 Attending Provider: Prasanna Floyd Admit Provider: Prasanna Floyd Primary Care Provider: PCP,NO Other Providers: Rodrigo Ibarra Jeffrey G. Other Interventions: Discharge Summary Assessment (RN) Last Done: 05/09/20 14:11 Coding Level of Care Code D/C Day Management <30 mins Diagnoses BPH (benign prostatic hyperplasia) N40.1; R33.8 Lower urinary tract symptom presence: symptoms present Lower urinary tract symptom detail: urinary retention
== END 2020-05-09 16:04 | disposition home health service (06) | DRG 707 ==
LOC: ASU 06:35 → 3N 16:19 → 2N 04-27 21:32